=== PATIENT | female | born 1950 | race Caucasian/White ===

== ENCOUNTER 2018-10-08 14:05 | Emergency (ER) | payer OTHER ==
--- OUTSIDE RECORDS SUMMARY | 2018-10-08 14:22 | XMS REPORT | Continuity of Care Document ---
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 F/U Active 01/01/20 [facility] 18 3 MONTH FOLOW UP Active 10/02/19 [facility] 18 Obstructive sleep 08/10/19 11/12/2017 [facility] apnea (pediatric) 18 XEOMIN INJ Active 06/18/19 [facility] 18 6 MO FU Active 05/01/20 [facility] 17 3 MO FU Active 05/01/20 [facility] 17 3 MONTH FOLLOW UP Active 11/22/19 [facility] 17 3 MONTH F.U Active 11/03/19 [facility] 17 4 WEEK F.U Active 09/28/19 [facility] 17 REF BY DT T; Active 08/09/19 [facility] PSYCHOLOGICAL 17 INSOMNIA 6 MONTH F/U Active 08/09/19 [facility] 17 XEOMIN 300 Active 05/01/20 [facility] 16 SHUKRI Active 01/31/20 [facility] 16 SUSPECTED SHUKRI Active 01/03/20 [facility] 16 250 UNITS Active 12/27/19 [facility] 16 300 UNITS Active 08/30/[address] [facility] [address] SCAN Active 02/16/20 [facility] 15 500 UNITS Active 11/17/19 [facility] 15 600 UNITS Active 05/19/19 [facility] 15 SHUKRI F/U Active 05/18/19 [facility] 14 SLEEP APNEA F/U Active 04/03/20 [facility] 13 500 UNIT Active 02/18/20 [facility] 13 FU Active 07/03/19 [facility] 12 3-4 MONTH FUP Active 02/14/20 [facility] 11 500 UNITS IN 4 WKS Active 02/14/20 [facility] 11 500/40 Active 11/22/19 [facility] 11 Clostridium Active 06/03/19 Problem 05/22/2012 1Problem difficile<sup>1</sup 10 added by [facility], > Discern [facility] Expert. Clostridium Resolved 06/03/19 Problem 08/30/2018 Problem [facility] difficile<sup>1, 10 added by 2</sup> Discern Expert. Clostridium Resolved 06/03/19 Problem 02/20/2013 2Problem [facility] difficile<sup>1, 10 added by </sup><sup>2</sup> Discern Expert. 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 09 SPASM OF MUSCLE Active 05/13/19 [facility] 01 [id number] Active 05/13/19 [facility] 01 [id number] Active 05/13/19 [facility] 01 APPT Active 05/13/19 [facility] 01 SLEEPINESS Active 05/13/19 [facility] 01 Dysthymic disorder 07/20/2018 [facility] Other muscle spasm 07/20/2018 [facility] Fracture Resolved Problem 02/20/2013 [facility] Hay fever Resolved Problem 02/20/2013 [facility] Numbness Resolved Problem 02/20/2013 [facility] Sinusitis Resolved Problem 02/20/2013 [facility] Fracture Resolved Problem 02/25/2016 [facility] Hay fever Resolved Problem 08/30/2018 [facility] Numbness Active Problem 08/30/2018 [facility] Sinusitis Resolved Problem 08/30/2018 [facility] SHUKRI - Obstructive Resolved Problem 08/30/2018 [facility] sleep apnea Spasm of muscle Active Problem 08/30/2018 [facility] Left spastic Active Problem 08/30/2018 [facility] hemiparesis Depression Active Problem 08/30/2018 [facility] 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 [facility] spasm Meningitis, 09/24/2017 [facility] unspecified Insomnia, 10/08/2017 [facility] unspecified Final: Dysthymic 02/03/2017 [facility] disorder 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 Psychophysiologic 07/20/2018 [facility] insomnia Unspecified 07/20/2018 [facility] intracranial injury without loss of consciousness, sequela 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 FOLLOW-UP EXAM NOS Active [facility] SPASM OF MUSCLE Active [facility] ABN INVOLUN MOVEMENT Active [facility] NEC BRAIN INJURY NEC Active [facility] OBSTRUCTIVE SLEEP Active [facility] APNEA LATE EF-HEMPLGA SIDE Active [facility] NOS CHRONIC PAIN NEC Active [facility] OTHER MUSCLE SPASM Active [facility] OTHER ABNORMAL Active [facility] INVOLUNTARY MOVEMENTS SLEEP APNEA NOS Active [facility] INTCRAN INJ W/O LOSS Active [facility] OF CONSCIOUSNESS, I ENCNTR FOR F/U EXAM Active [facility] AFT TRTMT FOR COND O OTHER CHRONIC PAIN Active [facility] OBSTRUCTIVE SLEEP Active [facility] APNEA (ADULT) (PEDIATR CRAMP AND SPASM Active [facility] ANXIETY DISORDER, Active [facility] UNSPECIFIED ANXIETY DISORDER DUE Active [facility] TO KNOWN PHYSIOLOGI MAJOR DEPRESSIVE Active [facility] DISORDER, SINGLE EPISOD BIPOLAR DISORDER, Active [facility] UNSPECIFIED Medications Medication Details Route Status Patient Ordering Order Source Instructions Provider Date Botulinum Toxin 400 unit, Inactive 08/28/ [facility] Type A Route: IM, 2018 ONCALL, Dosing Weight 59.091, kg, Start date: 08/28/18 13:00:00 CDT Nifedipine 10 MG 10 mg=1 cap, Active 08/28/ [facility] Oral Capsule PO, 0 2019 Refill(s) DULoxetine 40 mg 40 mg=1 cap, Active 07/09/ [facility] oral delayed PO, Daily, # 2019 release capsule 30 cap, 6 Refill(s), Pharmacy: [facility]/pharmacy #[id number] Fluoxetine 20 MG 20 mg=1 cap, Active 07/09/ [facility] Oral Capsule PO, Daily, # 2019 [Prozac] 30 cap, 6 Refill(s), Pharmacy: [facility]/pharmacy #[id number] ARIPiprazole 5 mg 5 mg=1 tab, Active 07/09/ [facility] oral tablet PO, Daily, # 2019 30 tab, 6 Refill(s), Pharmacy: [facility]/pharmacy #[id number] Bp medication Bp Active 07/09/ [facility] medication, 2019 PO, Refill(s) 0 DULoxetine 40 mg 40 mg=1 cap, No Longer 12/31/ [facility] oral delayed PO, Daily, # Active 2018 release capsule 30 cap, 6 Refill(s), Pharmacy: [facility]/pharmacy #[id number] Botulinum Toxin 400 unit, Inactive 12/31/ [facility] Type A Route: IM, 2017 ONCALL, Dosing Weight 59.091, kg, Start date: 12/31/17 11:00:00 CDT Botulinum Toxin 400 unit, Inactive [facility] Type A Route: IM, 2017 ONCRAF, Dosing Weight 59.091, kg, Start date: 09/24/17 11:00:00 CDT Home Medication 1 cap, PO, Active [facility] Daily, CBD2017 Canniba hemp oil, Refill(s) 0 Fluoxetine 20 MG 20 mg=1 cap, Active [facility] Oral Capsule PO, Daily, # 2017 [Prozac] 90 cap, 2 Refill(s), Pharmacy: [facility]/pharmacy #[id number] duloxetine 30 MG 30 mg=1 cap, Active [facility] Enteric Coated PO, Daily, # 2017 Capsule 90 cap, 2 [Cymbalta] Refill(s), Pharmacy: [facility]/pharmacy #[id number] ARIPiprazole 5 mg 5 mg=1 tab, Active [facility] oral tablet PO, Daily, # 2017 30 tab, 6 Refill(s), Pharmacy: [facility]/pharmacy #[id number] Botulinum Toxin 400 unit, Inactive [facility] Type A Route: IM, 2017 ONCRAF, Dosing Weight 56.818, kg, Start date: 06/18/17 12:00:00 LIABILITY CLAIMS ADJUSTER INCObotulinumtoxi 400 unit, Inactive [facility] nA Route: IM, 2016 ONCRAF, Dosing Weight 56.818, kg, Start date: 03/19/17 13:00:00 LIABILITY CLAIMS ADJUSTER meloxicam 7.5 mg 7.5 mg=1 tab, Active [facility] oral tablet PO, Daily, # 2016 30 tab, 0 Refill(s) Docusate Sodium 100 mg=1 cap, Active [facility] 100 MG Oral PO, Daily, 0 2016 Capsule [Colace] Refill(s) Probiotic Formula 1 cap, PO, Active [facility] Daily, 0 2016 Refill(s) duloxetine 30 MG 30 mg=1 cap, Active [facility] Enteric Coated PO, Daily, # 2016 Capsule 90 cap, 2 [Cymbalta] Refill(s) Fluoxetine 20 MG 20 mg=1 cap, Active [facility] Oral Capsule PO, Daily, # 2017 [Prozac] 90 cap, 2 Refill(s) Botulinum Toxin 400 unit, Inactive [facility] Type A Route: IM, 2016 ONCALL, Dosing Weight 60, kg, Start date: 12/11/16 12:00:00 CDT Fluoxetine 20 MG 20 mg=1 cap, Active [facility] Oral Capsule PO, Daily, # 2017 [Prozac] 30 cap, 0 Refill(s) duloxetine 30 MG 30 mg=1 cap, Active [facility] Enteric Coated PO, Daily, # 2016 Capsule 30 cap, 3 [Cymbalta] Refill(s), Pharmacy: [facility]/pharmacy #[id number] duloxetine 60 MG 60 mg=1 cap, Inactive [facility] Enteric Coated PO, Daily, # 2016 Capsule 30 cap, 3 [Cymbalta] Refill(s), Pharmacy: [facility]/pharmacy #[id number] Fluoxetine 20 MG 60 mg=3 cap, Active [facility] Oral Capsule PO, Daily, # 2017 [Prozac] 180 cap, 2 Refill(s), Pharmacy: [facility]/pharmacy #[id number] Fluoxetine 40 MG 40 mg=1 cap, Active 09/27/ [facility] Oral Capsule PO, Daily, # 2016 [Prozac] 30 cap, 0 Refill(s), Pharmacy: [facility]/pharmacy #[id number] Botulinum Toxin 400 unit, Inactive [facility] Type A Route: IM, 2016 ONCALL, Dosing Weight 55.455, kg, Start date: 08/14/16 12:00:00 CDT Baclofen 0.5 microgram, Active [facility] MG/ML Injectable INTRATHECAL, 2017 Solution ONCALL, Dose=total daily dose, 0 Refill(s) Home Medication 1 tab, PO, Active [facility] TID, 2017 cramberry, Refill(s) 0 Botulinum Toxin 300 unit, Inactive [facility] Type A Route: IM, 2015 ONCALL, Dosing Weight 55.909, kg, Start date: 05/01/16 12:00:00 LIABILITY CLAIMS ADJUSTER tramadol 50 mg=1 tab, Active [facility] hydrochloride 50 PO, BID, 0 2016 MG Oral Tablet Refill(s) Botulinum Toxin 300 unit, Inactive [facility] Type A Route: IM, 2015 ONCRAF, Dosing Weight 55.455, kg, Start date: 12/27/15 12:00:00 CDT, Duration: 30 day, Stop date: 01/26/16 11:59:00 CDT gabapentin 600 MG 600 mg=1 tab, Active [facility] Oral Tablet PO, TID, 0 2015 Refill(s) zolpidem 5 mg 5 mg=1 tab, Active [facility] oral tablet PO, Bedtime, 2015 PRN Sleep, X 30 day, # 30 tab, 5 Refill(s) zolpidem 5 mg 5 mg=1 tab, No Longer [facility] oral tablet PO, Bedtime, Active 2015 PRN Sleep, X 30 day, # 30 tab, 1 Refill(s), called to pharmacy onabotulinumtoxin 400 unit, Inactive [facility] A Route: IM, 2015 ONCRAF, Dosing Weight 55.455, kg, Start date: 08/30/15 11:00:00 CDT, Duration: 30 day, Stop date: 09/29/15 10:59:00 CDT zolpidem 5 mg 5 mg=1 tab, Active [facility] oral tablet PO, Bedtime, 2015 PRN Sleep, X 30 day, # 30 tab, 2 Refill(s), called to pharmacy onabotulinumtoxin 400 unit, Inactive [facility] A Route: IM, 2015 ONCRAF, Dosing Weight 55.909, kg, Start date: 05/31/15 11:00:00, Duration: 30 day, Stop date: 06/30/15 10:59:00 zolpidem 5 mg 5 mg=1 tab, Active [facility] oral tablet PO, Bedtime, 2014 PRN Sleep, X 30 day, # 30 tab, 2 Refill(s) gabapentin 100 MG 200 mg=2 cap, Active [facility] Oral Capsule PO, Daily, 0 2014 Refill(s) aripiprazole 5 MG 5 mg=1 tab, Active [facility] Oral Tablet PO, Daily, # 2015 [Abilify] 30 tab, 2 Refill(s), called to pharmacy onabotulinumtoxin 500 unit, Inactive [facility] A Route: IM, 2014 ONCALL, Dosing Weight 56.818, kg, Start date: 02/15/15 11:00:00, Duration: 30 day, Stop date: 03/17/15 9:59:00 zolpidem 5 mg 5 mg=1 tab, Active [facility] oral tablet PO, Bedtime, 2015 PRN Sleep, X 30 day, # 30 tab, 2 Refill(s) gabapentin 100 MG 200 mg=2 cap, Active [facility] Oral Capsule PO, Daily, 0 2014 Refill(s) Hydrochlorothiazi PO, Daily, 0 Active [facility] de Refill(s) 2014 Diphenhydramine 50 mg=2 tab, Inactive [facility] Hydrochloride 25 PO, TID, prn, 2015 MG Oral Tablet 0 [Benadryl] Refill(s)Spec ial Instructions: prn onabotulinumtoxin 500 unit, Inactive [facility] A Route: IM, 2014 ONCALL, Dosing Weight 55.909, kg, Start date: 11/16/14 10:00:00, Duration: 30 day, Stop date: 12/16/14 9:59:00 onabotulinumtoxin 500 unit, Inactive [facility] A Route: IM, 2014 Drug form: INJ, KATJA, Dosing Weight 57.273, kg, Start date: 08/17/14 11:00:00, Duration: 30 day, Stop date: 09/16/14 10:59:00Notes : "TO BE RECONSTITUTED AND ADMINISTERED ONLY BY A PHYSICIAN" Reconstitute with preservative free NS only. Stability=4 hours after reconstitutio n. (Same As: Botox) onabotulinumtoxin 500 unit, Inactive [facility] A Route: IM, 2014 ONCALL, Dosing Weight 56.818, kg, Start date: 05/19/14 16:00:00, Duration: 30 day, Stop date: 06/18/14 15:59:00 28 ACTUAT 20 microgram, Active [facility] Teriparatide 0.02 SUB-Q, Daily, 2014 MG/ACTUAT # 1 ea, 0 Prefilled Syringe Refill(s) [Forteo] aripiprazole 5 MG 5 mg=1 tab, Active 09/01/ [facility] Oral Tablet PO, Daily, # 2014 [Abilify] 30 tab, 0 Refill(s) Nuedexta oral 1 cap, PO, Active [facility]- 06/09/ [facility] capsule BID, # 60 Vigil 2014 cap, 2 Refill(s) Flonase 0.05 1 spray, Active [facility] mg/inh nasal NASAL, 2014 spray Bedtime, # 16 gm, 0 Refill(s) Bulan 5/325 oral 1 tab, PO, Active 06/02/ [facility] tablet Daily, 0 2013 Refill(s) Colace 100 mg 100 mg, 1 PO Active [facility] oral capsule cap, PO, 2012 Daily, PRN, 20 cap, Constipation, Substitution Allowed, CAP Bulan 5/325 oral 1 tab, PO, PO Active [facility] tablet Q4-6H, PRN, 2012 30 tab, Substitution Allowed, Maintenance Zocor 80 mg oral 80 mg, 1 tab, PO Active 08/05/ [facility] tablet PO, Daily, 90 2012 tab, Substitution Allowed, Maintenance Senna 8.6 mg oral 17.2 mg, 2 PO Active 08/05/ [facility] tablet tab, PO, 2012 Bedtime, PRN, 100 tab, for constipation, Substitution Allowed, Maintenance, TAB Actonel Substitution Active 08/05/ [facility] Allowed 2012 MiraLax oral 17 gm, PO, PO Active 08/05[facility] powder for Daily, 255 2012 reconstitution gm, Substitution Allowed, PDR/REC gabapentin 100 mg 100 mg, PO, PO Active 08/05/ [facility] oral capsule TID, 2012 Substitution Allowed gabapentin 400 mg 400 mg, PO, PO Active 08/05/ [facility] oral capsule TID, 2012 Substitution Allowed Coleen 60 mg 60 mg, 1 tab, PO Active 08/05/ [facility] oral tablet PO, BID, PRN, 2012 20 tab, Allergic reaction, Substitution Allowed, TAB Cymbalta 60 mg, PO, PO Active 08/05/ [facility] BID, 2012 Substitution Allowed Cymbalta 60mh, Active 08/05/ [facility] Substitution 2012 Allowed Vitamin D3 1000 1,000 PO Active [facility] intl units oral IntlUnit, 1 2012 capsule cap, PO, Daily, 100 cap, Substitution Allowed, CAP Os-Stas 500 + D BID, Active [facility] Substitution 2012 Allowed, Maintenance Abilify 5 mg oral 5 mg, 1 tab, PO Active [facility]- [facility] tablet PO, Bedtime, Musa 2012 30 tab, 3, 3, Substitution Allowed, TAB Abilify 5 mg, PO, PO Active 08/05[facility] Bedtime, 2012 Substitution Allowed ziconotide given with Active [facility] baclofen 2012 pump, Substitution Allowedgiven with baclofen pump Atelvia 1 tab, PO, PO Active 08/05[facility] qWeek, 2012 Substitution Allowed Bulan 5/325 oral 1 tab, PO, PO Active [place] 06/30[facility] tablet BID, 60 tab, 2012 2, 2, Substitution Allowed, Maintenance, TAB benzocaine-docusa 1 appl, SD, SD Active [place] 06/30[facility] te 20 mg-283 mg Daily, PRN, 2012 rectal enema 30 doses or times, as needed for constipation, Substitution Allowed, Maintenance, PATRICIA Colace 100 mg 100 mg, 1 PO Active [place] 06/30[facility] oral capsule cap, PO, BID, 2012 60 cap, 2, 2, Substitution Allowed, CAP duloxetine 30 mg 60 mg, 2 cap, PO Active [place] 06/30[facility] oral delayed PO, BID, 120 2012 release capsule cap, 2, 2, Substitution Allowed, DRC gabapentin 100 mg 5 caps, PO, PO Active [place] 06/30[facility] oral capsule TID, 150 2012 caplet, 2, 2, Substitution Allowed, CAP polyethylene 17 gm, PO, PO Active [place] 06/30[facility] glycol 3350 oral Daily, 30 2012 powder for doses or reconstitution times, 2, 2, Substitution Allowed, PDR/REC simvastatin 40 mg 80 mg, 2 tab, PO Active [place] 06/30[facility] oral tablet PO, Bedtime, 2012 60 tab, 2, 2, Substitution Allowed, Maintenance, TAB risedronate 5 mg 5 mg, 1 tab, PO Active [place] 06/30[facility] oral tablet PO, Q7D, 4 2012 tab, Substitution Allowed, TAB risedronate 30 mg 30 mg, 1 tab, PO Active [place] 06/30[facility] oral tablet PO, Q7D, 4 2012 tab, Substitution Allowed, TAB senna 8.6 mg oral 17.2 mg, 2 PO Active [place] 06/30[facility] tablet tab, PO, 2012 QNoon, 60 tab, 2, 2, Substitution Allowed, Maintenance, TAB psyllium 3.4 1 pkt, PO, PO Active [place] 06/30[facility] g/5.8 g oral Daily, 2012 powder doses or times, Substitution Allowed, Maintenance, PDR/REC Coleen-D 24 Hour 1 tab, Route: PO No Longer [facility] 06/[facility] PO, Dosing Active 2012 Weight 65.54, kg, Daily, Start date: 06/30/12 8:30:00, Duration: 30 day, Stop date: 07/29/12 8:30:00 Multiple Vitamins 1 tab, PO, PO Active [place] 06/[facility] with Minerals Daily, 2012 oral tablet tab, 2, 2, Substitution Allowed, Maintenance, TAB levofloxacin 500 500 mg, 1 PO Active [place] 06/30[facility] mg oral tablet tab, PO, 2012 [id number], 7 tab, Substitution Allowed, TAB fexofenadine 60 60 mg, 1 tab, PO Active [place] 06/30[facility] mg oral tablet PO, Q12H, 60 2012 tab, 2, 2, Substitution Allowed, TAB cholecalciferol 1,000 PO Active [place] 06/30[facility] 1000 intl units IntlUnit, 1 2012 oral capsule cap, PO, Daily, 30 cap, 2, 2, Substitution Allowed, CAP Os-Stas 500 with D 1 cap, PO, PO Active [place] 06/30[facility] oral tablet BID, 60 cap, 2012 2, 2, Substitution Allowed, Maintenance, [place] aripiprazole 5 mg 5 mg, 1 tab, PO Active [place] 06/30[facility] oral tablet PO, Bedtime, 2012 30 tab, 2, 2, Substitution Allowed, TAB Coleen 60 mg, 1 tab, PO No Longer [facility] Route: PO, Active 2012 Drug form: TAB, Q12H, Start date: 06/29/12 21:00:00, Duration: 30 day, Stop date: 07/29/12 9:00:00 Levaquin 500 mg, 1 PO No Longer [facility] tab, Route: Active 2012 PO, Drug form: TAB, [id number], Dosing Weight 65.54, kg, Start date: 06/26/12 18:00:00, Duration: 7 day, Stop date: 07/02/12 18:00:00 Bactrim DS oral 1 tab, Route: PO No Longer [facility] tablet PO, Drug Active 2012 Form: TAB, Dosing Weight 65.54, kg, BID--18, Start date: 06/22/12 18:00:00, Duration: 30 day, Stop date: 07/22/12 6:00:00 Abilify 5 mg, 1 tab, PO No Longer [facility] Route: PO, Active 2012 Drug form: TAB, Bedtime, Dosing Weight 65.54, kg, Start date: 06/19/12 21:00:00, Duration: 60 day, Stop date: 08/17/12 21:00:00 Actonel 5 mg, 1 tab, PO No Longer [facility] Route: PO, Active 2012 Drug form: TAB, Q7D, Start date: 06/08/12 13:00:00, Duration: 30 day, Stop date: 07/06/12 6:30:00 Abilify 5 mg, 1 tab, PO No Longer [facility] Route: PO, Active 2012 Drug form: TAB, Daily, Dosing Weight 65.54, kg, Start date: 06/05/12 8:30:00, Duration: 60 day, Stop date: 08/03/12 8:30:00 ZICONOTIDE ZICONOTIDE INJ No Longer [facility] 100MCG/ML 100MCG/ML, Active 2012 2.8, Drug form: MISC, Route: INJ, Continuous, 06/03/12 16:30:00, Duration: 30 day, Stop date: 07/03/12 16:29:00 Actonel 5 mg, 1 tab, PO No Longer [facility] Route: PO, Active 2012 Drug form: TAB, Q7D, Start date: 06/03/12 6:30:00, Duration: 30 day, Stop date: 07/29/12 6:30:00 Actonel 30 mg, 1 tab, PO No Longer [facility] Route: PO, Active 2012 Drug form: TAB, Q7D, Start date: 06/02/12 13:00:00, Duration: 30 day, Stop date: 06/30/12 6:30:00 TNF Risedronate 5 TNF PO No Longer [place] [facility] mg Risedronate Active 2012 5 mg, 5 mg, Drug form: MISC, Route: PO, Q7D, 06/02/12 6:30:00, Duration: 30 day, Stop date: 06/30/12 6:30:00 TNF - Risedronate TNF - PO No Longer [place] [facility] 30 mg Risedronate Active 2012 30 mg, 30 mg, Drug form: MISC, Route: PO, Q7D, 06/02/12 6:30:00, Duration: 30 day, Stop date: 06/30/12 6:30:00 nitrofurantoin 100 mg, 1 PO No Longer [facility] cap, Route: Active 2012 PO, Drug form: CAP, [id number], Dosing Weight 65.54, kg, Priority: NOW, Start date: 05/31/12 8:40:00, Duration: 7 day, Stop date: 06/07/12 2:40:00 MiraLax 17 gm, Route: PO No Longer [facility] PO, Daily, Active 2012 Dosing Weight 65.54, kg, Start date: 05/31/12 8:30:00, Duration: 30 day, Stop date: 06/29/12 8:30:00 ergocalciferol 1,000 PO No Longer [facility] IntlUnit, Active 2012 Route: PO, Daily, Dosing Weight 65.54, kg, Start date: 05/31/12 8:30:00, Duration: 30 day, Stop date: 06/29/12 8:30:00 Cymbalta 60 mg, Route: PO No Longer [facility] PO, Drug Active 2012 form: CAP, Daily, Dosing Weight 64.545, kg, Start date: 05/31/12 8:30:00, Duration: 30 day, Stop date: 06/29/12 8:30:00 Vitamin D3 1,000 unit, 1 PO No Longer [facility] tab, Route: Active 2012 PO, Drug form: TAB, Daily, Start date: 05/31/12 8:30:00, Duration: 60 day, Stop date: 07/29/12 8:30:00 Metamucil 1 pkt, Route: PO No Longer [place] [facility] PO, Drug Active 2012 Form: PDR/REC, Dosing Weight 64.545, kg, Daily, Start date: 05/31/12 8:30:00, Duration: 60 day, Stop date: 09/27/12 8:30:00 multivitamin with 1 tab, Route: PO No Longer [facility] minerals PO, Drug Active 2012 Form: TAB, Dosing Weight 64.545, kg, Daily, Start date: 05/31/12 8:30:00, Duration: 60 day, Stop date: 09/27/12 8:30:00 hydrochlorothiazi 12.5 mg, 0.5 PO No Longer [place] [facility] de tab, Route: Active 2012 PO, Drug form: TAB, Daily, Dosing Weight 64.545, kg, Start date: 05/31/12 8:30:00, Duration: 60 day, Stop date: 07/29/12 8:30:00 Fosamax 10 mg, 1 tab, PO No Longer [facility] Route: PO, Active 2012 Drug form: TAB, [id number], Start date: 05/31/12 6:30:00, Duration: 60 day, Stop date: 07/29/12 6:30:00 Zocor 160 mg, PO No Longer [facility] Route: PO, Active 2012 Drug form: TAB, Bedtime, Dosing Weight 64.545, kg, Start date: 05/30/12 21:00:00, Duration: 30 day, Stop date: 06/28/12 21:00:00 Colace 100 mg 100 mg, 1 PO No Longer [facility] oral capsule cap, Route: Active 2012 PO, Drug form: CAP, BID, Dosing Weight 64.545, kg, Start date: 05/30/12 21:00:00, Duration: 60 day, Stop date: 09/27/12 8:30:00 Os-Stas 500 + D 1 tab, Route: PO No Longer [place] [facility] PO, Drug Active 2012 Form: [place], Dosing Weight 64.545, kg, BID, Start date: 05/30/12 21:00:00, Duration: 60 day, Stop date: 09/27/12 8:30:00 Cymbalta 60 mg, 2 cap, PO No Longer [place] [facility] Route: PO, Active 2012 Drug form: DRC, BID, Dosing Weight 64.545, kg, Start date: 05/30/12 21:00:00, Duration: 60 day, Stop date: 09/27/12 8:30:00 bisacodyl 10 mg, 1 SD No Longer [facility] supp, Route: Active 2012 SD, Drug form: SUPP, Daily, Dosing Weight 65.54, kg, PRN Constipation, Start date: 05/30/12 18:04:00, Duration: 60 day, Stop date: 07/29/12 8:30:00 Bulan 5/325 oral 1 tab, Route: PO No Longer [place] [facility] tablet PO, Drug Active 2012 Form: TAB, Dosing Weight 64.545, kg, BID, Start date: 05/30/12 17:00:00, Duration: 60 day, Stop date: 09/27/12 8:00:00 baclofen Route: INTRATHECAL No Longer [facility] INTRATHECAL, Active 2012 Drug form: INJ, Continuous, PRN Other -See Comment, Start date: 05/30/12 15:14:00, Duration: 30 day, Stop date: 07/29/12 16:13:00 naproxen 250 mg, 1 PO No Longer [place] [facility] tab, Route: Active 2012 PO, Drug form: TAB, BID, Dosing Weight 65.54, kg, PRN Pain, Start date: 05/30/12 14:45:00, Duration: 60 day, Stop date: 09/27/12 8:30:00 gabapentin 100 mg 100 mg, 1 PO No Longer [facility] oral capsule cap, Route: Active 2012 PO, Drug form: CAP, TID, Dosing Weight 64.545, kg, Start date: 05/30/12 13:00:00, Duration: 60 day, Stop date: 09/27/12 8:30:00 gabapentin 400 mg 400 mg, 1 PO No Longer [facility] oral capsule cap, Route: Active 2012 PO, Drug form: CAP, TID, Dosing Weight 64.545, kg, Start date: 05/30/12 13:00:00, Duration: 60 day, Stop date: 09/27/12 8:30:00 Aleve 220 mg, PO No Longer [facility] Route: PO, Active 2012 Drug form: TAB, Q8H, Dosing Weight 64.545, kg, PRN Pain, Start date: 05/30/12 12:40:00, Duration: 30 day, Stop date: 06/29/12 12:39:00 risedronate 35 mg 35 mg, Route: PO No Longer [facility] oral tablet PO, Drug Active 2012 form: TAB, Q7D, Dosing Weight 64.545, kg, Start date: 05/30/12 12:00:00, Duration: 30 day, Stop date: 06/27/12 9:00:00 senna 8.6 mg oral 17.2 mg, 2 PO No Longer [facility] tablet tab, Route: Active 2012 PO, Drug Form: TAB, Dosing Weight 64.545, kg, QNoon, Start date: 05/30/12 12:00:00, Duration: 60 day, Stop date: 09/26/12 12:00:00 Bulan 5/325 oral 1 tab, Route: PO No Longer [facility] tablet PO, Drug Active 2012 Form: TAB, Dosing Weight 64.545, kg, Q4H, PRN Pain, Start date: 05/30/12 11:49:00, Duration: 30 day, Stop date: 06/29/12 11:48:00 phenobarbital 1,290.9 mg, IVP No Longer [facility] 19.86 mL, Active 2012 Route: IVP, Drug form: INJ, PRN, Dosing Weight 64.545, kg, PRN Seizure, Start date: 05/30/12 11:49:00, Duration: 60 day, Stop date: 09/27/12 12:48:00 phenytoin 968.175 mg, IVP No Longer [place] [facility] 19.36 mL, Active 2012 Route: IVP, Drug form: INJ, PRN, Dosing Weight 64.545, kg, PRN Seizure, Start date: 05/30/12 11:49:00, Duration: 60 day, Stop date: 09/27/12 12:48:00 LORAzepam 2 mg, 1 mL, IVP No Longer [facility] Route: IVP, Active 2012 Drug form: INJ, PRN, Dosing Weight 64.545, kg, PRN Seizure, Start date: 05/30/12 11:49:00, Duration: 60 day, Stop date: 09/27/12 12:48:00 Enemeez Plus 1 appl, SD No Longer [place] [facility] Route: SD, Active 2012 Drug Form: PATRICIA, Dosing Weight 64.545, kg, Daily, PRN as needed for constipation, Start date: 05/30/12 11:49:00, Duration: 60 day, Stop date: 09/27/12 8:30:00 Atelvia 35 mg PO, PO Active [facility] oral enteric Substitution 2011 coated tablet Allowed ziconotide 100 Substitution Active [facility] mcg/mL Allowed, q 2010 intrathecal monthq month solution pneumococcal 0.5 ml, Inactive SYSTEM 23-valent vaccine Route: IM, 2008 TIRGhada, Drug Form: [facility] INJ, ONCE, Start date: 02/08/09 9:00:00, Stop date: 02/08/09 9:00:00(Same as: Pneumovax 23) Refrigerate influenza virus 0.5 ml, Inactive SYSTEM vaccine, Route: IM, 2008 TIR, inactivated Drug Form: [facility] INJ, ONCE, Start date: 02/08/09 9:00:00, Stop date: 02/08/09 9:00:00(Same as: Fluzone) Allergies, Adverse Reactions, Alerts Substance Category Reaction Severity Reaction Status Date Comments Source type Reported Immunizations Immunization Date Given Site Status Last Updated Comments Source pneumococcal 02/08/2009 Not Given [facility] 23-valent vaccine [facility] influenza virus 02/08/2009 Not Given [facility] vaccine, [facility] inactivated pneumococcal 02/08/2009 Not Given [facility] 23-valent vaccine influenza virus 02/08/2009 Not Given Estela [facility] vaccine, inactivated pneumococcal 02/07/2009 completed [facility] 23-valent vaccine [facility] pneumococcal 02/07/2009 Left Arm completed [facility] 23-valent vaccine pneumococcal 02/07/2009 Left Arm completed [facility] 23-valent vaccine Results Order Name Results Value Reference Date Interpretation Comments Source Range CHEM PANEL Glucose Lvl 100 mg/dL 70 - 99 08/29 CHEM PANEL BUN 20 mg/dL 7 - 22 08/29 [facility] CHEM PANEL Creatinine 0.95 mg/dL 0.50 - 08/29 [facility] Lvl 1.40 CHEM PANEL CO2 33 meq/L 24 - 32 08/29 [facility] CHEM PANEL Calcium Lvl 9.2 mg/dL 8.5 - 10.5 08/29 [facility] CHEM PANEL AGAP 10.3 meq/L 10.0 - 08/29 [facility] .0 CHEM PANEL Chloride Lvl 88 meq/L 95 - 109 08/29 [facility] CHEM PANEL Sodium Lvl 128 meq/L 135 - 145 08/29 [facility] CHEM PANEL Potassium Lvl 3.3 meq/L 3.5 - 5.1 08/29 [facility] CHEM PANEL eGFR 64 08/29 Result Comment: The eGFR is calculated using the CKD-EPI formula. In most young, healthy individuals the eGFR will be >90 mL/ min/1.73m2. The eGFR declines with age. An eGFR of 60-89 may be normal in [facility] mL/min/1.73 some populations, particularly the elderly, for whom the CKD-EPI formula has not been extensively validated. Use of the eGFR is not recommended in the following populations: m2 Individuals with unstable creatinine concentrations, including patients and those with serious co-morbid conditions. Patients with extremes in muscle mass or diet. The data above are obtained from the National Kidney Disease Education Program (NKDEP) which additionally recommends that when the eGFR is used in patients with extremes of body mass index for purposes of drug dosing, the eGFR should be multiplied by the estimated BMI. URINE AND UA Glucose Negative Negative 08/29 [facility] STOOL (08/30/15 11:00 AM) URINE AND UA Spec Grav 1.010 <=1.030 08/29 [facility] STOOL URINE AND UA pH 6.0 5.0 - 8.0 08/29 [facility] STOOL URINE AND UA Protein 30 mg/dL Negative 08/29 [facility] STOOL mg/dL URINE AND UA Leuk Est Moderate Negative 08/29 [facility] STOOL *ABN* (08/30/15 11:00 AM) URINE AND UA Blood Moderate Negative 08/29 [facility] STOOL *ABN* (08/30/15 11:00 AM) URINE AND UA Ketones Negative Negative 08/29 [facility] STOOL *NA* (08/30/15 11:00 AM) URINE AND UA Bili Negative Negative 08/29 [facility] STOOL *NA* (08/30/15 11:00 AM) URINE AND UA Nitrite Negative Negative 08/29 [facility] STOOL (08/30/15 11:00 AM) URINE AND UA 0.2 EU/dL 0.1 - 1.0 08/29 [facility] STOOL Urobilinogen URINE AND UA Turbidity Slight Cloudy Clear 08/29 [facility] STOOL (08/30/15 11:00 AM) URINE AND UA Color Yellow Yellow 08/29 [facility] STOOL *NA* (08/30/15 11:00 AM) URINE AND UA Bacteria Many /HPF None Seen 08/29 [facility] STOOL /HPF URINE AND UA RBC 3-5 /HPF 0 - 2 08/29 [facility] STOOL URINE AND UA Sq Epi Moderate Few /LPF 08/29 [facility] STOOL /LPF /2015 URINE AND UA WBC 11-20 /HPF None Seen 08/29 [facility] STOOL /HPF Brain wo Brain wo EXAM: CT BRAIN WITHOUT CONTRAST 10/14 - [facility] contrast CT contrast CT /2014 - DATE: Feb 23, 2015 10:06:16 AM Read by: Jesse Ryan MD Dictated Date/time: 02/23/15 10:19 Electronically Signed by: Jesse Ryan MD 02/23/15 10:43 FINAL REPORT INDICATION: Stroke, hydrocephalus COMPARISON: March 31, 2013 TECHNIQUE: Contiguous axial images of the brain are obtained from the skull base to the vertex without administration of intravenous contrast material. Bone and soft tissue algorithms are provided. FINDINGS: There is no interval change in the patient's degree of ventriculomegaly. Persistent compensatory dilation of the right lateral ventricle is present as a consequence of the patient's extensive right MCA territory infarct. Visible portions of the ventriculoperitoneal shunt catheter are intact. Extensive encephalomalacia is again identified in the right cerebral hemisphere as well as the superior frontal and medial middle frontal gyri on the left from prior ischemia, unchanged. No new region of cortical abnormality is detected. Incidental imaging of the orbits, paranasal sinuses, skull, and skull base also demonstrates no interval change. IMPRESSION: 1. No recent infarct or hemorrhage. 2. Stable ventricular enlargement in this patient who has a ventriculoperitoneal shunt. Brain wo Brain wo EXAM: CT BRAIN WITHOUT CONTRAST 03/[address] [facility] [address] CT /2012 - DATE: Mar 31, 2013 12:56:00 PM Read by: Jesse Ryan Dictated Date/time: 03/31/13 14:07 Electronically Signed by: Jesse Ryan MD 03/31/13 14:15 FINAL REPORT INDICATION: Hydrocephalus COMPARISON: July 20, 2009 TECHNIQUE: Contiguous axial images of the brain are obtained from the skull base to the vertex without administration of intravenous contrast material. Bone and soft tissue algorithms are provided. FINDINGS: Patient has undergone interval cranioplasty with placement of a synthetic graft in the right frontoparietal region. A left transfrontal ventriculoperitoneal shunt catheter remains in place. Th e visualized portions of the catheter are intact. A mastoidectomy has been performed on the left with placement of a cochlear implant in the interval between the 2 exams. Extensive encephalomalacia of the right frontal and temporal lobes is again noted. Compensatory dilation of the ipsilateral portions of the ventricle is present. Size of the left lateral ventricle has, however, diminished. The third ventricle remains dilated. Focal hypodensity is identified in the medial aspect of the left cerebellar hemisphere adjacent to the vermis just above the fourth ventricle measuring 12 mm AP x 6 mm in transverse diameter. This could represent a volume artifact. However, age-indeterminate ischemia is also possible as the patient is not particularly asymmetric in the CT scanner. The appearance of the remainder of the brain parenchyma is unchanged. Incidental imaging of the orbits, paranasal sinuses, skull, and skull base also demonstrates no other interval change. IMPRESSION: 1. Hypodensity in the medial aspect of the left cerebellar hemisphere adjacent to the vermis. This could represent a volume artifact of the adjacent fourth ventricle or age-indeterminate ischemia. 2. Persistent dilation of the third ventricle may represent trapping of CSF in the structure as the left lateral ventricle is considerably smaller than on the patient's previous exam indicating donna t the ventriculoperitoneal shunt catheter is functional. 3. Interval cranioplasty on the right. 4. No new supratentorial parenchymal abnormality. 5. Interval placement of a cochlear implant on the left. CHEMISTRY eGFR 125 06/30 NA 1Result Comment: The eGFR is calculated using the CKD-EPI formula. In most young, healthy individuals the eGFR will be > 90 mL/min/1.73m2. The eGFR declines with age. An eGFR of 60-89 may be normal in [facility] mL/min/1.73 /2012 some populations, particularly the elderly, for whom the CKD-EPI formula has not been extensively validated. Use of the eGFR is not recommended in the following populations: m2 Individuals with unstable creatinine concentrations, including patients and those with serious co-morbid conditions. Patients with extremes in muscle mass or diet. The data above are obtained from the National Kidney Disease Education Program (NKDEP) which additionally recommends that when the eGFR is used in patients with extremes of body mass index for purposes of drug dosing, the eGFR should be multiplied by the estimated BMI. CHEMISTRY Sodium Lvl 146 meq/L 135 - 145 06/30 HI [facility] CHEMISTRY Potassium Lvl 4.1 meq/L 3.5 - 5.1 06/30 Normal [facility] /2012 CHEMISTRY Calcium Lvl 8.7 mg/dL 8.5 - 10.5 06/30 Normal [facility] /2012 CHEMISTRY Chloride Lvl 106 meq/L 95 - 109 06/30 Normal [facility] /2012 CHEMISTRY CO2 28 meq/L 24 - 32 06/30 Normal [facility] CHEMISTRY Glucose Lvl 87 mg/dL 70 - 99 06/30 Normal 4Interpretive Data: Adult reference range values reflect the clinical guidelines [facility] of the [place] [employer]. CHEMISTRY Creatinine 0.3 mg/dL 0.5 - 1.4 06/30 LOW [facility] Lvl /2012 CHEMISTRY BUN 17 mg/dL 7 - 22 06/30 Normal [facility] /2012 CHEMISTRY AGAP 16.1 meq/L 10.0 - 06/30 Normal [facility] 20.0 /2012 HEMATOLOGY MPV 8.5 fL 7.4 - 10.4 06/30 Normal [facility] /2012 HEMATOLOGY Platelet 201 K/CMM 133 - 450 06/30 Normal [facility] HEMATOLOGY RDW 12.8 % 11.5 - 06/30 Normal [facility] 14.5 /2012 HEMATOLOGY MCHC 33.1 g/dL 32.0 - 06/30 Normal [facility] 36.0 /2012 HEMATOLOGY WBC 4.7 K/CMM 3.7 - 10.4 06/30 Normal [facility] HEMATOLOGY Hct 36.5 % 36.0 - 06/30 Normal [facility] 48.0 /2012 HEMATOLOGY MCH 30.8 pg 27.0 - 06/30 Normal [facility] 31.0 /2012 HEMATOLOGY MCV 93.0 fL 81.0 - 06/30 Normal [facility] 99.0 /2012 HEMATOLOGY Hgb 12.1 g/dL 12.0 - 06/30 Normal [facility] 16.0 /2012 HEMATOLOGY RBC 3.92 M/CMM 4.20 - 02 LOW [facility] 5.40 /2012 HEMATOLOGY Monocytes # 0.4 K/CMM 0.0 - 0.8 06/30 Normal [facility] HEMATOLOGY Lymphocytes # 2.1 K/CMM 1.0 - 5.5 06/30 Normal [facility] HEMATOLOGY Basophils # 0.0 K/CMM 0.0 - 0.2 06/30 Normal [facility] HEMATOLOGY Eosinophils # 0.2 K/CMM 0.0 - 0.5 06/30 Normal [facility] HEMATOLOGY Segs-Bands # 2.0 K/CMM 1.5 - 8.1 06/30 Normal [facility] HEMATOLOGY Basophils 0.1 % 0.0 - 1.0 06/30 Normal [facility] /2012 HEMATOLOGY Eosinophils 4.9 % 0.0 - 4.0 06/30 HI [facility] /2012 HEMATOLOGY Monocytes 7.5 % 2.0 - 12.0 06/30 Normal [facility] HEMATOLOGY Lymphocytes 44.3 % 20.0 - 06/30 HI [facility] 40.0 /2012 HEMATOLOGY Segs 43.2 % 45.0 - 06/30 LOW [facility] 75.0 /2012 HEMATOLOGY Monocytes # 0.4 K/CMM 0.0 - 0.8 06/23 Normal [facility] HEMATOLOGY Lymphocytes # 1.5 K/CMM 1.0 - 5.5 06/23 Normal [facility] HEMATOLOGY Segs-Bands # 2.6 K/CMM 1.5 - 8.1 06/23 Normal [facility] HEMATOLOGY Basophils 0.1 % 0.0 - 1.0 06/23 Normal [facility] HEMATOLOGY Eosinophils # 0.2 K/CMM 0.0 - 0.5 06/23 Normal [facility] HEMATOLOGY Basophils # 0.0 K/CMM 0.0 - 0.2 06/23 Normal [facility] HEMATOLOGY Eosinophils 4.2 % 0.0 - 4.0 06/23 HI [facility] HEMATOLOGY Monocytes 8.8 % 2.0 - 12.0 06/23 Normal [facility] HEMATOLOGY Lymphocytes 31.1 % 20.0 - 06/23 Normal [facility] 40.0 HEMATOLOGY Segs 55.8 % 45.0 - 06/23 Normal [facility] 75.0 /2012 HEMATOLOGY MCH 30.9 pg 27.0 - 06/23 Normal [facility] 31.0 /2012 HEMATOLOGY RDW 12.4 % 11.5 - 06/23 Normal [facility] 14.5 /2012 HEMATOLOGY MCHC 33.3 g/dL 32.0 - 02 Normal [facility] 36.0 /2012 HEMATOLOGY MPV 8.6 fL 7.4 - 10.4 06/23 Normal [facility] HEMATOLOGY Platelet 207 K/CMM 133 - 450 06/23 Normal [facility] /2012 HEMATOLOGY MCV 92.9 fL 81.0 - 06/23 Normal [facility] 99.0 /2012 HEMATOLOGY Hct 41.2 % 36.0 - 06/23 Normal [facility] 48.0 /2012 HEMATOLOGY Hgb 13.7 g/dL 12.0 - 06/23 Normal [facility] 16.0 HEMATOLOGY WBC 4.7 K/CMM 3.7 - 10.4 06/23 Normal R HEMATOLOGY RBC 4.43 M/CMM 4.20 - 02 Normal [facility] 5.40 /2012 CHEMISTRY eGFR 99 06/23 NA 2Result Comment: The eGFR is calculated using the CKD-EPI formula. In most young, healthy individuals the eGFR will be > 90 mL/min/1.73m2. The eGFR declines with age. An eGFR of 60-89 may be normal in [facility] mL/min/1.73 /2012 some populations, particularly the elderly, for whom the CKD-EPI formula has not been extensively validated. Use of the eGFR is not recommended in the following populations: m2 Individuals with unstable creatinine concentrations, including patients and those with serious co-morbid conditions. Patients with extremes in muscle mass or diet. The data above are obtained from the National Kidney Disease Education Program (NKDEP) which additionally recommends that when the eGFR is used in patients with extremes of body mass index for purposes of drug dosing, the eGFR should be multiplied by the estimated BMI. CHEMISTRY Glucose Lvl 87 mg/dL 70 - 99 06/23 Normal 5Interpretive Data: Adult reference range values reflect the clinical guidelines of the [place] [employer]. CHEMISTRY Potassium Lvl 4.0 meq/L 3.5 - 5.1 06/23 Normal CHEMISTRY Sodium Lvl 146 meq/L 135 - 145 06/23 HI CHEMISTRY Creatinine 0.6 mg/dL 0.5 - 1.4 06/23 Normal [facility] Lvl CHEMISTRY Chloride Lvl 107 meq/L 95 - 109 06/23 Normal CHEMISTRY BUN 17 mg/dL 7 - 22 06/23 Normal CHEMISTRY Calcium Lvl 8.8 mg/dL 8.5 - 10.5 06/23 Normal CHEMISTRY CO2 30 meq/L 24 - 32 06/23 Normal CHEMISTRY AGAP 13.0 meq/L 10.0 - 06/23 Normal [facility] 20.0 URINALYSIS UA Leuk Est Trace Negative 06/19 ABN [facility] *ABN* (06/19/2012 00:01:00) URINALYSIS UA Nitrite Negative Negative 06/19 Normal [facility] (06/19/2012 00:01:00) URINALYSIS UA Protein Negative Negative 06/19 Normal [facility] (06/19/2012 00:01:00) URINALYSIS UA Glucose Negative Negative 06/19 Normal [facility] (06/19/2012 00:01:00) URINALYSIS UA Blood Negative Negative 06/19 Normal [facility] (06/19/2012 00:01:00) URINALYSIS UA 0.2 EU/dL 0.1 - 1.0 06/19 Normal [facility] Urobilinogen URINALYSIS UA Color Yellow Yellow 06/19 NA [facility] *NA* (06/19/2012 00:01:00) URINALYSIS UA pH 8.0 5.0 - 8.0 06/19 Normal [facility] URINALYSIS UA Turbidity Slight Cloudy Clear 06/19 Normal [facility] (06/19/2012 00:01:00) URINALYSIS UA Spec Grav 1.010 <=1.030 06/19 Normal [facility] URINALYSIS UA Ketones Negative Negative 06/19 NA [facility] *NA* (06/19/2012 00:01:00) URINALYSIS UA Bili Negative Negative 06/19 NA [facility] *NA* (06/19/2012 00:01:00) URINALYSIS UA Amorph Moderate /HPF None Seen 06/19 ABN [facility] Jordyn *ABN* (06/19/2012 00:01:00) URINALYSIS UA Bacteria Moderate /HPF None Seen 06/19 Normal [facility] (06/19/2012 00:01:00) URINALYSIS Micro? Performed 06/19 Normal [facility] (06/19/2012 00:01:00) URINALYSIS UA Sq Epi Rare /LPF Few 06/19 Normal [facility] (06/19/2012 00:01:00) URINALYSIS UA WBC 11-20 /HPF None Seen 06/19 ABN [facility] *ABN* (06/19/2012 00:01:00) Microbiolog Culture: 06/19 [facility] y Urine CHEMISTRY AGAP 15.0 meq/L 10.0 - 02/04 Normal [facility] 20.0 CHEMISTRY eGFR 106 06/16 NA 3Result Comment: The eGFR is calculated using the CKD-EPI formula. In most young, healthy individuals the eGFR will be > 90 mL/min/1.73m2. The eGFR declines with age. An eGFR of 60-89 may be normal in [facility] mL/min/1.73 /2012 some populations, particularly the elderly, for whom the CKD-EPI formula has not been extensively validated. Use of the eGFR is not recommended in the following populations: m2 Individuals with unstable creatinine concentrations, including patients and those with serious co-morbid conditions. Patients with extremes in muscle mass or diet. The data above are obtained from the National Kidney Disease Education Program (NKDEP) which additionally recommends that when the eGFR is used in patients with extremes of body mass index for purposes of drug dosing, the eGFR should be multiplied by the estimated BMI. CHEMISTRY Creatinine 0.5 mg/dL 0.5 - 1.4 06/16 Normal [facility] Lvl CHEMISTRY BUN 14 mg/dL 7 - 22 06/16 Normal [facility] CHEMISTRY Sodium Lvl 147 meq/L 135 - 145 06/16 HI R CHEMISTRY Glucose Lvl 78 mg/dL 70 - 99 06/16 Normal 6Interpretive Data: Adult reference range values reflect the clinical guidelines of the [place] [employer]. CHEMISTRY Potassium Lvl 4.0 meq/L 3.5 - 5.1 06/16 Normal [facility] CHEMISTRY CO2 30 meq/L 24 - 32 06/16 Normal [facility] CHEMISTRY Chloride Lvl 106 meq/L 95 - 109 06/16 Normal [facility] CHEMISTRY Calcium Lvl 8.9 mg/dL 8.5 - 10.5 06/16 Normal [facility] HEMATOLOGY Platelet 184 K/CMM 133 - 450 06/16 Normal [facility] HEMATOLOGY MPV 8.6 fL 7.4 - 10.4 06/16 Normal [facility] HEMATOLOGY MCV 93.2 fL 81.0 - 06/16 Normal [facility] 99.0 HEMATOLOGY MCHC 33.2 g/dL 32.0 - 06/16 Normal [facility] 36.0 HEMATOLOGY MCH 31.0 pg 27.0 - 06/16 Normal [facility] 31.0 /2012 HEMATOLOGY RDW 12.4 % 11.5 - 02/ Normal [facility] 14.5 /2012 HEMATOLOGY WBC 5.0 K/CMM 3.7 - 10.4 / Normal [facility] /2012 HEMATOLOGY Hgb 12.1 g/dL 12.0 - 02/ Normal [facility] 16.0 /2012 HEMATOLOGY RBC 3.90 M/CMM 4.20 - 02 LOW [facility] 5.40 /2012 HEMATOLOGY Hct 36.4 % 36.0 - 02 Normal [facility] 48.0 /2012 HEMATOLOGY Lymphocytes 39.6 % 20.0 - 02 Normal [facility] 40.0 /2012 HEMATOLOGY Monocytes 10.6 % 2.0 - 12.0 / Normal [facility] HEMATOLOGY Eosinophils 4.6 % 0.0 - 4.0 / HI [facility] HEMATOLOGY Segs 44.9 % 45.0 - 06/16 LOW [facility] 75.0 /2012 HEMATOLOGY Basophils # 0.0 K/CMM 0.0 - 0.2 06/16 Normal [facility] HEMATOLOGY Monocytes # 0.5 K/CMM 0.0 - 0.8 02 Normal [facility] HEMATOLOGY Eosinophils # 0.2 K/CMM 0.0 - 0.5 06/16 Normal [facility] HEMATOLOGY Segs-Bands # 2.3 K/CMM 1.5 - 8.1 06/16 Normal [facility] HEMATOLOGY Lymphocytes # 2.0 K/CMM 1.0 - 5.5 06/16 Normal [facility] HEMATOLOGY Basophils 0.3 % 0.0 - 1.0 06/16 Normal [facility] STOOL TESTS Occult Bld Negative Negative 06/13 Normal [facility] Stl (06/13/2012 15:00:00) Microbiolog Culture: 05/31 [facility] y Urine Microbiolog Culture: 05/31 [facility] y Urine URINALYSIS UA <=1.0 mg/dL 0.1 - 1.0 05/31 NA [facility] Urobilinogen
*NA*<b r/>( 013 05:13:00) <sup> </sup> URINALYSIS UA RBC 1 /HPF 0 - 2 05/31 Normal URINALYSIS UA WBC 112 /HPF 0 - 5 05/31 HI URINALYSIS UA Amorph Occasional /HPF None Seen 05/31 NA [facility] *NA* (05/31/2012 05:13:00) URINALYSIS UA Mucus Few /LPF None Seen 05/31 NA [facility] *NA* (05/31/2012 05:13:00) URINALYSIS UA Bacteria Many /HPF None Seen 05/31 ABN [facility] *ABN* (05/31/2012 05:13:00) URINALYSIS UA Blood Negative Negative 05/31 Normal [facility] (05/31/2012 05:13:00) URINALYSIS UA Nitrite Positive Negative 05/31 [facility] *ABN* (05/31/2012 05:13:00) URINALYSIS UA Bili Negative Negative 05/31 [facility] *NA* (05/31/2012 05:13:00) URINALYSIS UA Sq Epi Occasional /LPF Few 05/31 NA *NA* (05/31/2012 05:13:00) URINALYSIS UA Leuk Est Large Negative 05/31 ABN [facility] *ABN* (05/31/2012 05:13:00) URINALYSIS UA Ketones Negative mg/dL Negative 05/31 [facility] *NA* (05/31/2012 05:13:00) URINALYSIS UA Glucose Negative mg/dL Negative 05/31 NA *NA* (05/31/2012 05:13:00) URINALYSIS UA Protein Negative mg/dL Negative 05/31 Normal [facility] (05/31/2012 05:13:00) URINALYSIS UA pH 7.0 5.0 - 8.0 05/31 Normal URINALYSIS UA Spec Grav 1.007 <=1.030 05/31 Normal URINALYSIS UA Color Light Yellow Yellow 05/31 NA [facility] *NA* (05/31/2012 05:13:00) URINALYSIS UA Turbidity Slight Clear 05/31 ABN [facility] *ABN* (05/31/2012 05:13:00) CHEMISTRY UIBC 168 ug/dl 110 - 370 05/31 Normal CHEMISTRY % [place] Fe 30 % 12 - 57 05/31 Normal CHEMISTRY Iron 71 ug/dl 30 - 160 05/31 Normal CHEMISTRY TIBC 239 ug/dl 228 - 428 05/31 Normal CHEMISTRY Vitamin D 36 pg/mL 18 - 72 05/31 NA [facility] 1,25 (OH)2 Total CHEMISTRY Vitamin D3 36 pg/mL 05/31 NA [facility] 1,25 (OH)2 CHEMISTRY Vitamin D2 null 05/31 NA 7Result Comment: [facility] 1,25 (OH)2 Vitamin D2, 1,25 (OH)2: Reference ranges are established for total 1,25-dihydroxy vitamin D. Values for subcomponents D2 (derived from plant or fungal sources) and D3 (derived from human or animal sources) are provided for informational purposes only. This test(s) was developed and its performance characteristics have been determined by [facility], [place], [place]. Performance characteristics refer to the analytical performance of the test. Test Performed at: [facility], [address] [place] [id number] Jeyson Booth MD CHEMISTRY Magnesium Lvl 2.1 mg/dL 1.8 - 2.4 05/31 Normal CHEMISTRY T4 Free 0.65 ng/dL 0.76 - 05/31 LOW [facility] 1.46 CHEMISTRY Hgb A1C 4.9 % 05/31 NA 8Interpretive Data: HbA1C% eAG(mg /dL) Interpretation 6.0 126 Very good control 6.5 140 Very good control 7.0 154 Good Control 7.5 169 Good Control 8.0 183 Marginal Control, take action to lower 8.5 197 Marginal Control, take action to lower 9.0 212 Poor Control, take action to lower 9.5 226 Poor Control, take action to lower 10.0 240 Poor Control, take action to lower CHEMISTRY A/G Ratio 1.2 0.7 - 1.6 05/31 Normal CHEMISTRY B/C Ratio 30 6 - 25 05/31 HI CHEMISTRY Globulin 2.9 g/dL 2.0 - 4.0 05/31 Normal CHEMISTRY Total Protein 6.5 g/dL 6.4 - 8.4 05/31 Normal CHEMISTRY Bili Total 0.2 mg/dL 0.2 - 1.3 05/31 Normal CHEMISTRY AST 20 unit/L 0 - 37 05/31 Normal CHEMISTRY Alk Phos 60 unit/L 39 - 136 05/31 Normal CHEMISTRY Albumin Lvl 3.6 g/dL 3.5 - 5.0 05/31 Normal CHEMISTRY ALT 34 unit/L 0 - 65 05/31 Normal CHEMISTRY TSH 1.980 0.360 - 05/31 Normal [facility] uIU/mL 3.740 CHEMISTRY Phosphorus 4.7 mg/dL 2.5 - 4.5 05/31 HI CHEMISTRY LDL 62 mg/dL 0 - 129 05/31 Normal CHEMISTRY Trig 128 mg/dL 0 - 200 05/31 Normal CHEMISTRY Chol 135 mg/dL 120 - 200 05/31 Normal CHEMISTRY HDL 47 mg/dL >=35 05/31 Normal CHEMISTRY CHD Risk 2.87 3.90 - 05/31 LOW [facility] 5.80 /2012 IMMUNOLOGY Prealbumin 24.5 mg/dL 18.0 - 05/31 Normal [facility] 45.0 /2012 Vital Signs Vital Sign Value Date Comments Source Weight 59.091 08/28/2018 [facility] Heart Rate 68 08/28/2018 [facility] Respitory Rate 18 08/28/2018 [facility] Systolic (mm Hg) 137 08/28/2018 MH [facility] Diastolic (mm Hg) 81 08/28/2018 [facility] Weight 59.091 07/09/2018 MH [facility] Systolic (mm Hg) 183 07/09/2018 MH [facility] Diastolic (mm Hg) 99 07/09/2018 [facility] Heart Rate 55 07/09/2018 [facility] Height 149.86 cm 07/09/2018 [facility] BMI Calculated 26.31 07/09/2018 [facility] Respitory Rate 18 07/09/2018 [facility] BMI Calculated 26.31 12/31/2017 [facility] Weight 59.091 12/31/2017 [facility] Height 149.86 cm 12/31/2017 [facility] Respitory Rate 20 12/31/2017 [facility] Heart Rate 63 12/31/2017 MH [facility] Systolic (mm Hg) 139 12/31/2017 MH [facility] Diastolic (mm Hg) 82 12/31/2017 [facility] Height 149.86 cm 12/31/2017 [facility] Weight 59.091 12/31/2017 [facility] BMI Calculated 26.31 12/31/2017 [facility] Respitory Rate 20 12/31/2017 [facility] Heart Rate 62 12/31/2017 [facility] Systolic (mm Hg) 137 12/31/2017 MH [facility] Diastolic (mm Hg) 88 12/31/2017 [facility] Height 149.86 cm 10/01/2017 [facility] BMI Calculated 26.51 10/01/2017 [facility] Weight 59.545 10/01/2017 [facility] Systolic (mm Hg) 134 10/01/2017 [facility] Diastolic (mm Hg) 79 10/01/2017 [facility] Heart Rate 65 10/01/2017 [facility] Respitory Rate 16 10/01/2017 [facility] Respitory Rate 20 09/24/2017 [facility] Heart Rate 63 09/24/2017 [facility] Weight 59.545 09/24/2017 [facility] BMI Calculated 26.51 09/24/2017 [facility] Height 149.86 cm 09/24/2017 [facility] Systolic (mm Hg) 113 09/24/2017 [facility] Diastolic (mm Hg) 73 09/24/2017 [facility] BMI Calculated 27.12 08/06/2017 [facility] Weight 60.909 08/06/2017 [facility] Height 149.86 cm 08/06/2017 [facility] Respitory Rate 18 08/06/2017 [facility] Heart Rate 77 08/06/2017 [facility] Systolic (mm Hg) 146 08/06/2017 [facility] Diastolic (mm Hg) 86 08/06/2017 [facility] Height 149.86 cm 07/02/2017 [facility] Weight 59.091 07/02/2017 [facility] BMI Calculated 26.31 07/02/2017 [facility] Heart Rate 71 07/02/2017 [facility] Systolic (mm Hg) 181 07/02/2017 MH [facility] Diastolic (mm Hg) 79 07/02/2017 [facility] Respitory Rate 20 07/02/2017 MH [facility] Weight 59.091 2017 [facility] Respitory Rate 18 2017 [facility] Heart Rate 76 2017 MH [facility] Systolic (mm Hg) 156 2017 [facility] Diastolic (mm Hg) 86 2017 [facility] Height 149.86 cm 05/01/2017 [facility] BMI Calculated 25.3 05/01/2017 [facility] Weight 56.818 05/01/2017 MH [facility] Systolic (mm Hg) 136 05/01/2017 MH [facility] Diastolic (mm Hg) 85 05/01/2017 [facility] Heart Rate 67 05/01/2017 [facility] Respitory Rate 20 05/01/2017 [facility] Weight 56.818 03/19/2017 [facility] BMI Calculated 22.19 03/19/2017 [facility] Heart Rate 60 03/19/2017 [facility] Respitory Rate 18 03/19/2017 [facility] Height 160.02 cm 03/19/2017 MH [facility] Systolic (mm Hg) 120 03/19/2017 MH [facility] Diastolic (mm Hg) 78 03/19/2017 [facility] Weight 56.818 02/06/2017 [facility] BMI Calculated 25.3 02/06/2017 [facility] Height 149.86 cm 02/06/2017 [facility] Heart Rate 66 02/06/2017 [facility] Systolic (mm Hg) 116 02/06/2017 [facility] Diastolic (mm Hg) 73 02/06/2017 [facility] Respitory Rate 18 02/06/2017 [facility] BMI Calculated 25.3 01/31/2017 [facility] Height 149.86 cm 01/31/2017 [facility] Weight 56.818 01/31/2017 [facility] Heart Rate 68 01/31/2017 [facility] Respitory Rate 20 01/31/2017 [facility] Systolic (mm Hg) 132 01/31/2017 [facility] Diastolic (mm Hg) 81 01/31/2017 [facility] Weight 56.818 12/11/2016 [facility] Heart Rate 55 12/11/2016 [facility] Respitory Rate 16 12/11/2016 [facility] Systolic (mm Hg) 116 12/11/2016 [facility] Weight 56.818 11/21/2016 [facility] BMI Calculated 25.3 11/21/2016 [facility] Height 149.86 cm 11/21/2016 [facility] Systolic (mm Hg) 127 11/02/2016 [facility] Diastolic (mm Hg) 82 11/02/2016 [facility] Weight 55 11/02/2016 [facility] BMI Calculated 24.49 11/02/2016 [facility] Height 149.86 cm 11/02/2016 [facility] Heart Rate 61 11/02/2016 [facility] Respitory Rate 18 11/02/2016 [facility] Systolic (mm Hg) 104 09/27/2016 [facility] Diastolic (mm Hg) 58 09/27/2016 [facility] Respitory Rate 18 09/27/2016 [facility] Heart Rate 73 09/27/2016 [facility] Height 149.86 cm 08/15/2016 [facility] Heart Rate 67 08/14/2016 [facility] Respitory Rate 20 08/14/2016 [facility] Height 149.86 cm 08/14/2016 [facility] Weight 60 08/14/2016 [facility] BMI Calculated 26.72 08/14/2016 [facility] Systolic (mm Hg) 139 08/14/2016 [facility] Diastolic (mm Hg) 81 08/14/2016 [facility] Height 149.86 cm 08/08/2016 [facility] Weight 60 08/08/2016 [facility] BMI Calculated 26.72 08/08/2016 [facility] Systolic (mm Hg) 139 08/08/2016 [facility] Diastolic (mm Hg) 84 08/08/2016 [facility] Heart Rate 66 08/08/2016 [facility] Respitory Rate 20 08/08/2016 [facility] BMI Calculated 24.69 06/12/2016 [facility] Weight 55.455 06/12/2016 [facility] Height 149.86 cm 06/12/2016 [facility] Respitory Rate 20 06/12/2016 [facility] Heart Rate 63 06/12/2016 [facility] Systolic (mm Hg) 109 06/12/2016 [facility] Diastolic (mm Hg) 60 06/12/2016 [facility] Respitory Rate 20 05/01/2016 [facility] BMI Calculated 24.69 05/01/2016 [facility] Weight 55.455 05/01/2016 [facility] Height 149.86 cm 05/01/2016 [facility] Heart Rate 70 05/01/2016 [facility] Systolic (mm Hg) 132 05/01/2016 [facility] Diastolic (mm Hg) 71 05/01/2016 [facility] Systolic (mm Hg) 114 04/11/2016 [facility] Diastolic (mm Hg) 62 04/11/2016 [facility] Height 149.86 cm 04/11/2016 [facility] BMI Calculated 24.69 04/11/2016 [facility] Heart Rate 62 04/11/2016 [facility] Respitory Rate 20 04/11/2016 [facility] Weight 55.455 04/11/2016 [facility] Weight 55.909 12/27/2015 [facility] BMI Calculated 36.09 12/27/2015 [facility] Height 124.46 cm 12/27/2015 [facility] Respitory Rate 20 12/27/2015 [facility] Heart Rate 59 12/27/2015 [facility] Systolic (mm Hg) 108 12/27/2015 [facility] Diastolic (mm Hg) 62 12/27/2015 [facility] Systolic (mm Hg) 114 12/21/2015 [facility] Diastolic (mm Hg) 68 12/21/2015 [facility] Respitory Rate 20 12/21/2015 [facility] Heart Rate 61 12/21/2015 [facility] BMI Calculated 24.49 12/21/2015 [facility] Weight 55 12/21/2015 [facility] Height 149.86 cm 12/21/2015 [facility] Systolic (mm Hg) 82 08/30/2015 [facility] Diastolic (mm Hg) 50 08/30/2015 [facility] Respitory Rate 18 08/30/2015 [facility] Heart Rate 70 08/30/2015 [facility] Systolic (mm Hg) 96 05/31/2015 [facility] Diastolic (mm Hg) 52 05/31/2015 [facility] Heart Rate 67 05/31/2015 [facility] Respitory Rate 20 05/31/2015 [facility] Height 149.86 cm 04/19/2015 [facility] BMI Calculated 24.69 04/19/2015 [facility] Weight 55.455 04/19/2015 [facility] Respitory Rate 18 04/19/2015 [facility] Systolic (mm Hg) 109 04/19/2015 [facility] Diastolic (mm Hg) 64 04/19/2015 [facility] Heart Rate 61 04/19/2015 [facility] Weight 55.909 02/15/2015 [facility] BMI Calculated 24.89 02/15/2015 [facility] Height 149.86 cm 02/15/2015 [facility] Heart Rate 61 02/15/2015 [facility] Respitory Rate 18 02/15/2015 [facility] Systolic (mm Hg) 111 02/15/2015 [facility] Diastolic (mm Hg) 66 02/15/2015 [facility] BMI Calculated 25.3 02/07/2015 [facility] Weight 56.818 02/07/2015 [facility] Height 149.86 cm 02/07/2015 [facility] Respitory Rate 20 02/07/2015 [facility] Heart Rate 80 02/07/2015 [facility] Systolic (mm Hg) 116 02/07/2015 [facility] Diastolic (mm Hg) 68 02/07/2015 [facility] Height 149.86 cm 11/16/2014 [facility] Weight 56.818 11/16/2014 [facility] BMI Calculated 25.3 11/16/2014 [facility] Systolic (mm Hg) 105 11/16/2014 [facility] Diastolic (mm Hg) 59 11/16/2014 [facility] Respitory Rate 20 11/16/2014 [facility] Heart Rate 60 11/16/2014 [facility] Respitory Rate 18 08/17/2014 [facility] Systolic (mm Hg) 105 08/17/2014 [facility] Diastolic (mm Hg) 54 08/17/2014 [facility] Heart Rate 65 08/17/2014 [facility] Height 149.86 cm 08/17/2014 [facility] Weight 55.909 08/17/2014 [facility] BMI Calculated 24.89 08/17/2014 [facility] Systolic (mm Hg) 99 07/26/2014 [facility] Diastolic (mm Hg) 53 07/26/2014 [facility] Respitory Rate 20 07/26/2014 [facility] Heart Rate 67 07/26/2014 [facility] Weight 57.273 07/26/2014 [facility] BMI Calculated 25.5 07/26/2014 [facility] Height 149.86 cm 07/26/2014 [facility] Respitory Rate 18 05/19/2014 [facility] Weight 56.818 05/19/2014 [facility] Systolic (mm Hg) 110 05/19/2014 [facility] Diastolic (mm Hg) 90 05/19/2014 [facility] Heart Rate 60 05/19/2014 [facility] BMI Calculated 25.3 05/19/2014 [facility] Height 149.86 cm 05/19/2014 [facility] Height 149.86 cm 12/29/2013 [facility] Heart Rate 61 12/29/2013 [facility] Systolic (mm Hg) 100 12/29/2013 [facility] Diastolic (mm Hg) 52 12/29/2013 [facility] Height 149.86 cm 12/22/2013 [facility] Weight 56.364 12/22/2013 [facility] BMI Calculated 25.1 12/22/2013 [facility] Diastolic (mm Hg) 53 12/01/2013 [facility] Heart Rate 60 12/01/2013 [facility] Systolic (mm Hg) 99 12/01/2013 [facility] Respitory Rate 16 12/01/2013 [facility] Weight 58.636 12/01/2013 [facility] BMI Calculated 26.11 12/01/2013 [facility] Height 149.86 cm 12/01/2013 [facility] BMI Calculated 26.92 09/01/2013 [facility] Weight 60.455 09/01/2013 [facility] Height 149.86 cm 09/01/2013 [facility] Systolic (mm Hg) 90 09/01/2013 [facility] Diastolic (mm Hg) 53 09/01/2013 [facility] Heart Rate 72 09/01/2013 [facility] Weight 59.545 08/11/2013 [facility] BMI Calculated 26.51 08/11/2013 [facility] Height 149.86 cm 08/11/2013 [facility] Systolic (mm Hg) 108 08/11/2013 [facility] Diastolic (mm Hg) 58 08/11/2013 [facility] Respitory Rate 18 08/11/2013 [facility] Heart Rate 61 08/11/2013 [facility] Weight 61.364 06/09/2013 [facility] Height 149.86 cm 06/09/2013 [facility] Diastolic (mm Hg) 49 06/09/2013 [facility] Heart Rate 66 06/09/2013 [facility] Respitory Rate 16 06/09/2013 [facility] Temperature Oral (F) 98.7 F 06/09/2013 [facility] Systolic (mm Hg) 96 06/09/2013 [facility] Weight 61.364 06/02/2013 [facility] Respitory Rate 16 06/02/2013 [facility] Diastolic (mm Hg) 53 06/02/2013 [facility] Heart Rate 72 06/02/2013 [facility] Systolic (mm Hg) 94 06/02/2013 [facility] Respitory Rate 18 05/11/2013 [facility] Heart Rate 60 05/11/2013 [facility] Systolic (mm Hg) 100 05/11/2013 [facility] Diastolic (mm Hg) 53 05/11/2013 [facility] Weight 62.727 05/11/2013 [facility] Height 149.86 cm 05/11/2013 [facility] Systolic (mm Hg) 94 03/31/2013 [facility] Respitory Rate 18 03/31/2013 [facility] Heart Rate 62 03/31/2013 [facility] Diastolic (mm Hg) 55 03/31/2013 [facility] Weight 61.818 03/31/2013 [facility] Height 149.86 cm 03/31/2013 [facility] Weight 62.727 02/17/2013 [facility] Height 149.86 cm 02/17/2013 [facility] Heart Rate 67 02/17/2013 [facility] Diastolic (mm Hg) 48 02/17/2013 [facility] Systolic (mm Hg) 90 02/17/2013 [facility] Respitory Rate 16 02/17/2013 [facility] Weight 63.182 01/27/2013 [facility] Height 149.86 cm 01/27/2013 [facility] Respitory Rate 18 01/27/2013 [facility] Systolic (mm Hg) 91 01/27/2013 [facility] Heart Rate 73 01/27/2013 [facility] Diastolic (mm Hg) 51 01/27/2013 [facility] Heart Rate 61 11/28/2012 [facility] Systolic (mm Hg) 108 11/28/2012 [facility] Diastolic (mm Hg) 55 11/28/2012 [facility] Respitory Rate 18 11/28/2012 [facility] Height 149.86 cm 11/28/2012 [facility] Weight 64.091 11/28/2012 [facility] Respitory Rate 16 10/14/2012 [facility] Heart Rate 66 10/14/2012 [facility] Diastolic (mm Hg) 52 10/14/2012 [facility] Systolic (mm Hg) 94 10/14/2012 [facility] Height 149.86 cm 10/14/2012 [facility] Weight 67.273 10/14/2012 [facility] Weight 67.273 08/19/2012 [facility] Height 149.86 cm 08/19/2012 [facility] Respitory Rate 18 08/19/2012 [facility] Diastolic (mm Hg) 53 08/19/2012 [facility] Heart Rate 73 08/19/2012 [facility] Systolic (mm Hg) 91 08/19/2012 [facility] Respitory Rate 16 08/05/2012 [facility] Heart Rate 72 08/05/2012 [facility] Diastolic (mm Hg) 46 08/05/2012 [facility] Systolic (mm Hg) 94 08/05/2012 [facility] Weight 72.727 08/05/2012 [facility] Systolic (mm Hg) 93 07/02/2012 [facility] Diastolic (mm Hg) 45 07/02/2012 [facility] Respitory Rate 18 07/02/2012 [facility] Heart Rate 76 07/02/2012 [facility] Diastolic (mm Hg) 50 07/02/2012 [facility] Systolic (mm Hg) 92 07/02/2012 [facility] Heart Rate 79 07/02/2012 [facility] Respitory Rate 18 07/02/2012 [facility] Diastolic (mm Hg) 59 07/01/2012 [facility] Systolic (mm Hg) 104 07/01/2012 [facility] Respitory Rate 18 07/01/2012 [facility] Heart Rate 81 07/01/2012 [facility] Weight 65.540 05/30/2012 [facility] Height 149.86 cm 05/30/2012 [facility] Weight 64.545 05/20/2012 [facility] Height 149.86 cm 05/20/2012 [facility] Systolic (mm Hg) 99 05/20/2012 [facility] Diastolic (mm Hg) 57 05/20/2012 [facility] Respitory Rate 18 05/20/2012 [facility] Heart Rate 67 05/20/2012 [facility] Weight 65.000 04/15/2012 [facility] Height 149.86 cm 04/15/2012 [facility] Systolic (mm Hg) 106 04/15/2012 [facility] Diastolic (mm Hg) 62 04/15/2012 [facility] Heart Rate 69 04/15/2012 [facility] Respitory Rate 12 04/15/2012 [facility] Weight 62.727 01/29/2012 [facility] Height 149.86 cm 01/29/2012 [facility] Respitory Rate 18 01/29/2012 [facility] Heart Rate 74 01/29/2012 [facility] Diastolic (mm Hg) 66 01/29/2012 [facility] Systolic (mm Hg) 108 01/29/2012 [facility] Heart Rate 66 11/16/2011 [facility] Diastolic (mm Hg) 50 11/16/2011 [facility] Systolic (mm Hg) 95 11/16/2011 [facility] Respitory Rate 12 11/16/2011 [facility] Temperature Oral (F) 98.5 F 11/16/2011 [facility] Weight 63.636 11/16/2011 [facility] Height 149.86 cm 11/16/2011 [facility] Heart Rate 84 10/16/2011 [facility] Diastolic (mm Hg) 63 10/16/2011 [facility] Systolic (mm Hg) 106 10/16/2011 [facility] Respitory Rate 18 10/16/2011 [facility] Weight 63.636 10/16/2011 [facility] Height 149.86 cm 10/16/2011 [facility] Height 149.86 cm 09/03/2011 [facility] Weight 62.727 09/03/2011 [facility] Respitory Rate 16 09/03/2011 [facility] Diastolic (mm Hg) 64 09/03/2011 [facility] Heart Rate 70 09/03/2011 [facility] Systolic (mm Hg) 109 09/03/2011 [facility] Systolic (mm Hg) 111 08/28/2011 [facility] Diastolic (mm Hg) 55 08/28/2011 [facility] Heart Rate 70 08/28/2011 [facility] Temperature Oral (F) 98.1 F 08/28/2011 [facility] Weight 62.727 08/28/2011 [facility] Height 152.40 cm 08/28/2011 [facility] Weight 63.636 08/21/2011 [facility] Height 149.86 cm 08/21/2011 [facility] Systolic (mm Hg) 93 08/21/2011 [facility] Respitory Rate 12 08/21/2011 [facility] Diastolic (mm Hg) 50 08/21/2011 [facility] Heart Rate 72 08/21/2011 [facility] Weight 64.091 07/03/2011 [facility] Height 149.86 cm 07/03/2011 [facility] Heart Rate 74 07/03/2011 [facility] Diastolic (mm Hg) 58 07/03/2011 [facility] Respitory Rate 18 07/03/2011 [facility] Systolic (mm Hg) 104 07/03/2011 [facility] Weight 65.455 05/22/2011 [facility] Height 149.86 cm 05/22/2011 [facility] Systolic (mm Hg) 102 05/22/2011 [facility] Heart Rate 72 05/22/2011 [facility] Diastolic (mm Hg) 56 05/22/2011 [facility] Respitory Rate 18 05/22/2011 [facility] Heart Rate 79.0 04/03/2011 [facility] Diastolic (mm Hg) 61.0 04/03/2011 [facility] Systolic (mm Hg) 100.0 04/03/2011 [facility] Respitory Rate 18.0 04/03/2011 [facility] Weight 64.545 04/03/2011 [facility] Height 149.86 cm 04/03/2011 [facility] Weight 65.455 02/13/2011 [facility] Height 149.86 cm 02/13/2011 [facility] Systolic (mm Hg) 112.0 02/13/2011 [facility] Diastolic (mm Hg) 66.0 02/13/2011 [facility] Respitory Rate 16.0 02/13/2011 [facility] Heart Rate 81.0 02/13/2011 [facility] Encounters Location Location Encounter Encounter Reason Attending ADM DC Status Source Details Type Number For Provider Date Date Visit Outpatient [id number] 500 [facility] 05/22 Active [facility] 6 UNITS IN [place] 4 WKS [facility] Outpatient [id number] 3-4 [facility] 07/03 Active [facility] 7 [facility]TH [facility] [id number] 08/20 08/20 Active [facility] 8 UNITS [place]- /2011 [facility] Outpatient [id number] [facility]OGEN BARBARA 08/27 08/27 Active [facility] 8 IC [facility] Outpatient [id number] [facility] 09/02 Active [facility] 2 Outpatient [id number] [facility] 10/15 Active [facility] 9 [place]- [facility] Outpatient [id number] [facility] 11/15 Active [facility] 0 UNITS [facility] [id number] F/U [facility] 01/28 Active [facility] 1 [place]- 2011 [facility] Outpatient [id number] 500 JYOTI 02/18 Active [facility] 2 UNITS [place]- /2011 [facility] Outpatient [id number] F/U JYOTI 04/15 Active [facility] 3 [place]- /2011 [facility] Outpatient [id number] 500 J[place] 05/20 Active [facility] 4 UNITS [place]- [facility] [place] [id number] HERON 05/30 07/02 Active [facility] 5 RODRIGUEZ /2012 Outpatient [id number] F/U JYOTI 08/05 Active [facility] [id number] 500 J[facility] 08/19 Active [facility] 8 UNITS [place]- [facility] Outpatient [id number] F/U JYOTI 10/14 Active [facility] 7 [place]- [facility] Outpatient [id number] 500 J[place] 11/28 Active [facility] 9 UNITS [place]- [facility] Outpatient [id number] SLEEPINE CELESTE 01/09 Active [facility] 2 SS TALLAVAJHUL /2012 A Outpatient [id number] F/U JYOTI 01/27 Active [facility] 0 [place]- [facility] Outpatient [id number] 500 JYOTI 02/17 Active [facility] 1 UNITS [place]- /2012 [facility] Outpatient [id number] SLEEP CELESTE 03/31 Active [facility] 5 APNEA TALLAVAJHUL F/U A Outpatient [id number] SLEEP CELESTE 05/11 Active [facility] 6 APNEA TALLAVAJHUL F/U A Outpatient [id number] F/U JYOTI 06/02 Active [facility] 4 [place]- [facility] Outpatient [id number] 500 UNIT JYOTI 06/09 Active [facility] 3 [place]AY[place]- /2013 [facility] Outpatient [id number] _MAPID:[id number] Heron 08/11 08/12 [facility] [place] 8 [id number] [place]-Gu /2013 [facility] [id number] [facility] Outpatient [id number] Heron 09/01 09/02 [facility] [place] 9 [place]-Gu /2013 [facility] Outpatient [id number] Heron 12/01 12/02 [facility] [place] 0 [place]-Gu /2013 [facility] Outpatient [id number] Heron 12/22 12/23 MH [facility] [place] 2 [place]-Gu /2013 [facility] Tots [id number] Heron 12/29 01/28 MH [facility] [place] [facility] 0 [place]-Gu /2013 [facility] Tots [id number] Heron 02/02 03/04 [facility] [place] [id number] Heron 03/04 04/03 [facility] [place] [facility] [id number] Heron 05/19 05/20 [facility] [place] 6 [place]-Gu /2014 [facility] Outpatient [id number] Heron 07/26 07/27 [facility] [place] 9 [place]-Gu /2014 [facility] Outpatient [id number] Heron 08/17 08/18 [facility] [place] 0 [place]Gu /2014 [facility] Outpatient [id number] Heron 11/16 11/17 [facility] [place] 1 [place] /[facility] Out[facility] [id number] Celeste 02/07 02/08 [facility] 3 [facility]avajhul /2014 [facility] Outpatient [id number] Heron 02/15 02/16 [facility] 2 [place] /2014 [facility] Outpatient [id number] Heron 02/23 02/24 [facility] 5 [place] /2014 [facility] Outpatient [id number] Celeste 04/19 04/20 [facility] 4 Tallavajhul /2014 [facility] Outpatient [id number] Heron 05/31 06/01 [facility] 6 [facility]2015 [facility] Outpatient [id number] Heron 08/29 08/30 [facility] 8 [facility]2015 [facility] Outpatient [id number] Celeste 12/20 12/21 [facility] 0 [facility] Outpatient [id number] Heron 12/26 12/27 [facility] 9 [facility]- [facility]2015 [facility] Outpatient [id number] Celeste 01/10 01/10 [facility] 2 [facility] [place] [facility] [facility] Outpatient [id number] Celeste 02/21 02/21 [facility] 3 [facility] [place] [facility] Outpatient [id number] Celeste 04/11 04/12 [facility] 4 [facility] Outpatient [id number] Heron 05/01 05/02 [facility] 1 [facility]2015 [facility] Recurring [id number] Celeste 05/17 06/16 [facility] 3 [facility] Outpatient [id number] Celeste 06/12 06/13 [facility] 5 [facility] Recurring [id number] Celeste 06/26 07/26 [facility] 4 [facility] Outpatient [id number] Celeste 08/08 08/09 [facility] 7 [facility] Outpatient [id number] Heron 08/14 08/15 [facility] 6 [facility] Outpatient [id number] N[place] 09/27 09/28 [facility] 9 [facility] Outpatient [id number] N[place] 11/02 11/03 [facility] 1 [facility] Outpatient [id number] Naga 11/21 11/22 [facility] 2 [facility] Outpatient [id number] Heron 12/11 12/12 [facility] 0 [place] Outpatient [id number] N[place] 01/31 02/01 [facility] 5 [facility] Outpatient [id number] Celeste 02/06 02/07 [facility] 8 [facility] Outpatient [id number] Heron 03/19 03/20 [facility] 4 [place]- [facility] Outpatient [id number] N[place] 05/01 05/02 [facility] 7 [facility] Outpatient [id number] Heron 06/18 06/19 [facility] 8 [place]- [facility] Outpatient [id number] N[place] 07/02 07/03 [facility] 9 [facility] Outpatient [id number] Celeste 08/06 08/07 [facility] 0 [facility] Outpatient [id number] Heron 09/24 09/25 [facility] 1 [place] Outpatient [id number] N[place] 10/01 10/02 [facility] 2 [facility] Outpatient [id number] Heron 12/31 01/01 [facility] 3 [place] Outpatient [id number] N[place] 07/09 07/10 [facility] 7 [facility] Outpatient [id number] Heron 08/28 08/29 [facility] Spasticity 8 [place] /2018 [facility] Outpatient [id number] 500/40 [facility] Code Date Perfomer Comments [place] [address] 08/28/2018 [facility] muscle(s); neck muscle(s), excluding muscles of the larynx, unilateral (eg, for cervical dystonia, spasmodic torticollis) [place] [address] 08/28/2018 [facility] one extremity; 5 or [place] [address] 08/28/2018 [facility] muscle(s); muscle(s) innervated by facial nerve, unilateral (eg, for blepharospasm, hemifacial spasm) [place] [address] 12/31/2017 [facility] muscle(s); neck muscle(s), excluding muscles of the larynx, unilateral (eg, for cervical dystonia, spasmodic torticollis) [place] [address] 12/31/2017 [facility] one extremity; each additional extremity, 1-4 muscle(s) (List separately in addition to code for primary procedure) [place] [address] 12/31/2017 [facility] one extremity; 5 [place] [address] 12/31/2017 [facility] muscle(s); muscle(s) innervated by facial nerve, unilateral (eg, for blepharospasm, hemifacial spasm) [place] [address]1740 09/24/2017 [facility] muscle(s); neck muscle(s), excluding muscles of the larynx, unilateral (eg, for cervical dystonia, spasmodic torticollis) [place] [address] 09/24/2017 [facility] muscle(s); muscle(s) innervated by facial nerve, unilateral (eg, for blepharospasm, hemifacial spasm) [place] [address] 09/24/2017 [facility] one extremity; 5 or [place] [address] 09/24/2017 [facility] one extremity; each additional extremity, 1-4 muscle(s) (List separately in addition to code for primary procedure) [place] [address] 2017 [facility] muscle(s); neck muscle(s), excluding muscles of the larynx, unilateral (eg, for cervical dystonia, spasmodic torticollis) [place] [address] 2017 [facility] one extremity; 5 or more muscles [place] 16768 2017 [facility] muscle(s); muscle(s) innervated by facial nerve, unilateral (eg, for blepharospasm, hemifacial spasm) [place] [address] 03/19/2017 [facility] muscle(s); neck muscle(s), excluding muscles of the larynx, unilateral (eg, for cervical dystonia, spasmodic torticollis) [place] [address] 03/19/2017 [facility] muscle(s); muscle(s) innervated by facial nerve, unilateral (eg, for blepharospasm, hemifacial spasm) [place] [address] 03/19/2017 [facility] one extremity; 5 [place] [address] 12/11/2016 [facility] one extremity; 5 [place] 71667 12/11/2016 [facility] muscle(s); neck muscle(s), excluding muscles of the larynx, unilateral (eg, for cervical dystonia, spasmodic torticollis) [place] [address] 08/14/2016 [facility] muscle(s); neck muscle(s), excluding muscles of the larynx, unilateral (eg, for cervical dystonia, spasmodic torticollis) [place] [address] 08/14/2016 [facility] one extremity; 5 or [place] [address] 05/01/2016 [facility] one extremity; 5 or [place] 8[address] 05/01/2016 [facility] muscle(s); neck muscle(s), excluding muscles of the larynx, unilateral (eg, for cervical dystonia, spasmodic torticollis) [place] 43033 08/30/2015 [facility] one extremity; 5 [place] [address] 05/31/2015 [facility] one extremity; 5 or more muscles Femur X-ray [id number] [facility] Shunt construction [id number] [facility] Chemodenervation [id number] [facility] Femur X-ray [id number] [facility] Shunt construction [id number] [facility]
--- OUTSIDE RECORDS SUMMARY | 2018-10-08 14:24 | XMS REPORT | CCD ---
:1950 Author Organization [facility] Team Providers Name Role Phone NicoleJustin Consulting Provider Unavailable Shahana Grove Referring Provider Shane Mendieta Consulting Provider [phone] Alisha Deluna Consulting Provider Unavailable Carli Palmer Consulting Provider Unavailable ChartServer, Login Consulting Provider Unavailable Aditya Beltran Consulting Provider Unavailable Dolores Millard Consulting Provider Unavailable SYSTEM, SYSTEM Consulting Provider Unavailable Allergies, Adverse Reactions, Alerts Substance Reaction Status NKDA ?? Active Problem List Condition Effective Dates Status Clostridium difficile1 06/03/2009 Active 1Problem added by Discern Expert. Medications Medication Instructions Start Date End Date Status ziconotide 100 mcg/mL Substitution Allowed, q month 04/03/2011 ?? Ordered intrathecal solution q month pneumococcal 23-valent 0.5 ml, Route: IM, Drug 02/08/2009 02/08/2009 Completed vaccine Form: INJ, ONCE, Start date: 02/08/09 9:00:00, Stop date: 02/08/09 9:00:00 influenza virus vaccine, 0.5 ml, Route: IM, Drug 02/08/2009 02/08/2009 Completed inactivated Form: INJ, ONCE, Start date: 02/08/09 9:00:00, Stop date: 02/08/09 9:00:00 Immunizations Vaccine Date Status influenza virus vaccine, inactivated 02/08/2009 Not Done pneumococcal 23-valent vaccine 02/07/2009 Auth (Verified) pneumococcal 23-valent vaccine 02/08/2009 Not Done Vital Signs Most recent to oldest [Reference Range]: 1 Height 149.86 cm (04/03/2011 09:51:00) ?? Systolic Blood Pressure [90-140 mmHg] 100 mmHg (04/03/2011 09:51:00) ?? Diastolic Blood Pressure [60-90 mmHg] 61 mmHg (04/03/2011 09:51:00) ?? Respiratory Rate [14-20 BRMIN] 18 BRMIN (04/03/2011 09:51:00) ?? Peripheral Pulse Rate [60-100 bpm] 79 bpm (04/03/2011 09:51:00) ?? Weight 64.545 kg (04/03/2011 09:51:00) ??
--- OUTSIDE RECORDS SUMMARY | 2018-10-08 14:24 | XMS REPORT | CCD ---
:1950 Author Organization [facility] Team Providers Name Role Phone Shahana Grove Referring Provider Shane Mendieta Consulting Provider [id number] Alisha Deluna Consulting Provider Unavailable Carli Palmer Consulting Provider Unavailable ChartServer, Login Consulting Provider Unavailable Karen Gloria Consulting Provider [phone] Dolores Millard Consulting Provider Unavailable SYSTEM, SYSTEM Consulting Provider Unavailable Allergies, Adverse Reactions, Alerts Substance Reaction Status NKDA ?? Active Problem List Condition Effective Dates Status Clostridium difficile1 06/03/2009 Active 1Problem added by Discern Expert. Medications Medication Instructions Start Date End Date Status pneumococcal 23-valent 0.5 ml, Route: IM, Drug [...]
--- OUTSIDE RECORDS SUMMARY | 2018-10-08 14:24 | XMS REPORT | CCD ---
:1950 Author Organization [facility] Team Providers Name Role Phone Shahana Grove Referring Provider Shane Mendieta Consulting Provider [id number] Alisha Deluna Consulting Provider Unavailable Carli Palmer Consulting Provider Unavailable ChartServer, Login Consulting Provider Unavailable Andi Hunt Consulting Provider Unavailable Dolores Millard Consulting Provider [...] oldest [Reference Range]: 1 Height 149.86 cm (02/13/2011 11:05:00) ?? Systolic Blood Pressure [90-140 mmHg] 112 mmHg (02/13/2011 11:05:00) ?? Diastolic Blood Pressure [60-90 mmHg] 66 mmHg (02/13/2011 11:05:00) ?? Respiratory Rate [14-20 BRMIN] 16 BRMIN (02/13/2011 11:05:00) ?? Peripheral Pulse Rate [60-100 bpm] 81 bpm (02/13/2011 11:05:00) ?? Weight 65.455 kg (02/13/2011 11:05:00) ??
--- OUTSIDE RECORDS SUMMARY | 2018-10-08 14:24 | XMS REPORT | CCD ---
:1950 Author Organization [facility] Team Providers Name Role Phone Shahana Grove Referring Provider Allergies, Adverse Reactions, Alerts Substance Reaction Status NKDA Active Problem List Condition Effective Dates Status [...] oldest [Reference Range]: 1 Height 149.86 cm (05/22/2011 08:43:00) Systolic Blood Pressure [90-140 mmHg] 102 mmHg (05/22/2011 08:43:00) Diastolic Blood Pressure [60-90 mmHg] 56 mmHg *LOW* (05/22/2011 08:43:00) Respiratory Rate [14-20 BRMIN] 18 BRMIN (05/22/2011 08:43:00) Peripheral Pulse Rate [60-100 bpm] 72 bpm (05/22/2011 08:43:00) Weight 65.455 kg (05/22/2011 08:43:00)
--- OUTSIDE RECORDS SUMMARY | 2018-10-08 14:25 | XMS REPORT | CCD ---
:1950 Author Organization [facility] Team Providers Name Role Phone Marlo Carter Referring Provider Allergies, Adverse Reactions, Alerts Substance [...] recent to oldest [Reference Range]: 1 Height 152.40 cm (08/28/2011 13:11:00) Temperature Oral [96.4-99.1 DegF] 98.1 DegF (08/28/2011 13:11:00) Systolic Blood Pressure [90-140 mmHg] 111 mmHg (08/28/2011 13:11:00) Diastolic Blood Pressure [60-90 mmHg] 55 mmHg *LOW* (08/28/2011 13:11:00) Peripheral Pulse Rate [60-100 bpm] 70 bpm (08/28/2011 13:11:00) Weight 62.727 kg (08/28/2011 13:11:00)
--- OUTSIDE RECORDS SUMMARY | 2018-10-08 14:25 | XMS REPORT | CCD ---
:1950 Author Organization [facility] Team Providers Name Role Phone Shahana [...] oldest [Reference Range]: 1 Height 149.86 cm (10/16/2011 09:13:00) Systolic Blood Pressure [90-140 mmHg] 106 mmHg (10/16/2011 09:13:00) Diastolic Blood Pressure [60-90 mmHg] 63 mmHg (10/16/2011 09:13:00) Respiratory Rate [14-20 BRMIN] 18 BRMIN (10/16/2011 09:13:00) Peripheral Pulse Rate [60-100 bpm] 84 bpm (10/16/2011 09:13:00) Weight 63.636 kg (10/16/2011 09:13:00)
--- OUTSIDE RECORDS SUMMARY | 2018-10-08 14:25 | XMS REPORT | CCD ---
:1950 Author Organization [facility] Team Providers Name Role Phone Shahana Grove Referring Provider Allergies, Adverse Reactions, Alerts Substance Reaction Status NKDA Active Problem List Condition Effective Dates Status Clostridium difficile1 06/03/2009 Active 1Problem added by Discern Expert. Medications Medication Instructions Start Date End Date Status Atelvia 35 mg oral enteric PO, Substitution Allowed 07/03/2011 Ordered coated tablet pneumococcal 23-valent 0.5 ml, Route: IM, Drug [...] oldest [Reference Range]: 1 Height 149.86 cm (07/03/2011 11:35:00) Systolic Blood Pressure [90-140 mmHg] 104 mmHg (07/03/2011 11:35:00) Diastolic Blood Pressure [60-90 mmHg] 58 mmHg *LOW* (07/03/2011 11:35:00) Respiratory Rate [14-20 BRMIN] 18 BRMIN (07/03/2011 11:35:00) Peripheral Pulse Rate [60-100 bpm] 74 bpm (07/03/2011 11:35:00) Weight 64.091 kg (07/03/2011 11:35:00)
--- OUTSIDE RECORDS SUMMARY | 2018-10-08 14:25 | XMS REPORT | CCD ---
:1950 Author Organization [facility] Team Providers Name Role Phone Shahana Grove Referring Provider Allergies, Adverse Reactions, Alerts Substance Reaction Status NKDA Active Problem List Condition Effective Dates Status Clostridium difficile1 06/03/2009 Active Fracture Resolved Hay fever Resolved Numbness Resolved Sinusitis Resolved 1Problem added by Discern Expert. Medications Medication [...] oldest [Reference Range]: 1 Height 149.86 cm (04/15/2012 10:24:00) Systolic Blood Pressure [90-140 mmHg] 106 mmHg (04/15/2012 10:24:00) Diastolic Blood Pressure [60-90 mmHg] 62 mmHg (04/15/2012 10:24:00) Respiratory Rate [14-20 BRMIN] 12 BRMIN *LOW* (04/15/2012 10:24:00) Peripheral Pulse Rate [60-100 bpm] 69 bpm (04/15/2012 10:24:00) Weight 65.000 kg (04/15/2012 10:24:00) Procedures Procedures Date Related Diagnosis Femur X-ray Shunt construction
--- OUTSIDE RECORDS SUMMARY | 2018-10-08 14:25 | XMS REPORT | CCD ---
:1950 Author Organization [facility] Team Providers Name Role Phone Shahana [...] oldest [Reference Range]: 1 Height 149.86 cm (11/16/2011 09:58:00) Temperature Oral [96.4-99.1 DegF] 98.5 DegF (11/16/2011 09:58:00) Systolic Blood Pressure [90-140 mmHg] 95 mmHg (11/16/2011 09:58:00) Diastolic Blood Pressure [60-90 mmHg] 50 mmHg *LOW* (11/16/2011 09:58:00) Respiratory Rate [14-20 BRMIN] 12 BRMIN *LOW* (11/16/2011 09:58:00) Peripheral Pulse Rate [60-100 bpm] 66 bpm (11/16/2011 09:58:00) Weight 63.636 kg (11/16/2011 09:58:00)
--- OUTSIDE RECORDS SUMMARY | 2018-10-08 14:25 | XMS REPORT | CCD ---
:1950 Author Organization [facility] Team Providers Name Role Phone Marlo Carter [...] oldest [Reference Range]: 1 Height 149.86 cm (09/03/2011 13:27:00) Systolic Blood Pressure [90-140 mmHg] 109 mmHg (09/03/2011 13:27:00) Diastolic Blood Pressure [60-90 mmHg] 64 mmHg (09/03/2011 13:27:00) Respiratory Rate [14-20 BRMIN] 16 BRMIN (09/03/2011 13:27:00) Peripheral Pulse Rate [60-100 bpm] 70 bpm (09/03/2011 13:27:00) Weight 62.727 kg (09/03/2011 13:27:00)
--- OUTSIDE RECORDS SUMMARY | 2018-10-08 14:25 | XMS REPORT | CCD ---
:1950 Author Organization [facility] Team Providers Name Role Phone Shahana Grove [...] oldest [Reference Range]: 1 Height 149.86 cm (05/20/2012 11:04:00) Systolic Blood Pressure [90-140 mmHg] 99 mmHg (05/20/2012 11:04:00) Diastolic Blood Pressure [60-90 mmHg] 57 mmHg *LOW* (05/20/2012 11:04:00) Respiratory Rate [14-20 BRMIN] 18 BRMIN (05/20/2012 11:04:00) Peripheral Pulse Rate [60-100 bpm] 67 bpm (05/20/2012 11:04:00) Weight 64.545 kg (05/20/2012 11:04:00)
--- OUTSIDE RECORDS SUMMARY | 2018-10-08 14:25 | XMS REPORT | CCD ---
:1950 Author Organization [facility] Team Providers Name Role Phone Shahana [...] oldest [Reference Range]: 1 Height 149.86 cm (08/21/2011 08:48:00) Systolic Blood Pressure [90-140 mmHg] 93 mmHg (08/21/2011 08:48:00) Diastolic Blood Pressure [60-90 mmHg] 50 mmHg *LOW* (08/21/2011 08:48:00) Respiratory Rate [14-20 BRMIN] 12 BRMIN *LOW* (08/21/2011 08:48:00) Peripheral Pulse Rate [60-100 bpm] 72 bpm (08/21/2011 08:48:00) Weight 63.636 kg (08/21/2011 08:48:00)
--- OUTSIDE RECORDS SUMMARY | 2018-10-08 14:25 | XMS REPORT | CCD ---
:1950 Author Organization [facility] Team Providers Name Role Phone Shahana Grove [...] oldest [Reference Range]: 1 Height 149.86 cm (01/29/2012 09:04:00) Systolic Blood Pressure [90-140 mmHg] 108 mmHg (01/29/2012 09:04:00) Diastolic Blood Pressure [60-90 mmHg] 66 mmHg (01/29/2012 09:04:00) Respiratory Rate [14-20 BRMIN] 18 BRMIN (01/29/2012 09:04:00) Peripheral Pulse Rate [60-100 bpm] 74 bpm (01/29/2012 09:04:00) Weight 62.727 kg (01/29/2012 09:04:00)
--- OUTSIDE RECORDS SUMMARY | 2018-10-08 14:26 | XMS REPORT | CCD ---
:1950 Author Organization [facility] Team Providers Name Role Phone Shahana Grove Referring Provider Allergies, Adverse Reactions, Alerts Substance Reaction Status NKDA Active Problem List Condition Effective Dates Status Clostridium difficile1, 2 06/03/2009 - 07/15/2009 Resolved Fracture Resolved Hay fever Resolved Numbness Resolved Sinusitis Resolved 1CTA 07/15/[id number] added by Discern Expert. Medications Medication Instructions Start Date End Date Status Abilify 5 mg, PO, Bedtime, 08/05/2012 Ordered Substitution Allowed ziconotide given with baclofen pump, Substitution Allowed 08/05/2012 Ordered given with baclofen pump Cymbalta 60mh, Substitution 08/05/2012 Ordered Allowed Vitamin D3 1000 intl units 1,000 IntlUnit, 1 cap, 08/05/2012 Ordered oral capsule PO, Daily, 100 cap, Substitution Allowed, CAP pneumococcal 23-valent 0.5 ml, Route: IM, Drug 02/08/2009 02/08/2009 Completed vaccine Form: INJ, ONCE, Start date: 02/08/09 9:00:00, Stop date: 02/08/09 9:00:00 influenza virus vaccine, 0.5 ml, Route: IM, Drug 02/08/2009 02/08/2009 Completed inactivated Form: INJ, ONCE, Start date: 02/08/09 9:00:00, Stop date: 02/08/09 9:00:00 Atelvia 1 tab, PO, qWeek, 08/05/2012 Ordered Substitution Allowed Os-Stas 500 + D BID, Substitution 08/05/2012 Ordered Allowed, Maintenance Abilify 5 mg oral tablet 5 mg, 1 tab, PO, Bedtime, 08/05/2012 Ordered 30 tab, 3, 3, Substitution Allowed, TAB gabapentin 100 mg oral 100 mg, PO, TID, 08/05/2012 Ordered capsule Substitution Allowed Zocor 80 mg oral tablet 80 mg, 1 tab, PO, Daily, 08/05/2012 09/04/2012 Ordered 90 tab, Substitution Allowed, Maintenance gabapentin 400 mg oral 400 mg, PO, TID, 08/05/2012 Ordered capsule Substitution Allowed Senna 8.6 mg oral tablet 17.2 mg, 2 tab, PO, 08/05/2012 Ordered Bedtime, PRN, 100 tab, for constipation, Substitution Allowed, Maintenance, TAB Actonel Substitution Allowed 08/05/2012 Ordered Coleen 60 mg oral tablet 60 mg, 1 tab, PO, BID, 08/05/2012 Ordered PRN, 20 tab, Allergic reaction, Substitution Allowed, TAB MiraLax oral powder for 17 gm, PO, Daily, 255 gm, 08/05/2012 Ordered reconstitution Substitution Allowed, PDR/REC Cymbalta 60 mg, PO, BID, 08/05/2012 Ordered Substitution Allowed Immunizations Vaccine Date Status influenza virus vaccine, inactivated 02/08/2009 Not Done pneumococcal 23-valent vaccine 02/07/2009 Auth (Verified) pneumococcal 23-valent vaccine 02/08/2009 Not Done Vital Signs Most recent to oldest [Reference Range]: 1 Systolic Blood Pressure [90-140 mmHg] 94 mmHg (08/05/2012 09:45:00) Diastolic Blood Pressure [60-90 mmHg] 46 mmHg *LOW* (08/05/2012 09:45:00) Respiratory Rate [14-20 BRMIN] 16 BRMIN (08/05/2012 09:45:00) Peripheral Pulse Rate [60-100 bpm] 72 bpm (08/05/2012 09:45:00) Weight 72.727 kg (08/05/2012 09:45:00)
--- OUTSIDE RECORDS SUMMARY | 2018-10-08 14:26 | XMS REPORT | CCD ---
:1950 Author Organization [facility] Team Providers Name Role Phone Shahana Grove Referring Provider Allergies, Adverse Reactions, Alerts Substance Reaction Status NKDA Active Problem List Condition Effective Dates Status Clostridium difficile1, 2 06/03/2009 - 07/15/2009 Resolved Fracture Resolved Hay fever Resolved Numbness Resolved Sinusitis Resolved 1CTA 07/15/[id number] added by Discern Expert. Medications Medication Instructions [...] oldest [Reference Range]: 1 Height 149.86 cm (08/19/2012 09:34:00) Systolic Blood Pressure [90-140 mmHg] 91 mmHg (08/19/2012 09:34:00) Diastolic Blood Pressure [60-90 mmHg] 53 mmHg 1 *LOW* (08/19/2012 09:34:00) Respiratory Rate [14-20 BRMIN] 18 BRMIN (08/19/2012 09:34:00) Peripheral Pulse Rate [60-100 bpm] 73 bpm (08/19/2012 09:34:00) Weight 67.273 kg (08/19/2012 09:34:00) 1Result Comment: caregiver states usual BP
--- OUTSIDE RECORDS SUMMARY | 2018-10-08 14:26 | XMS REPORT | CCD ---
:1950 Author Organization [facility] Team Providers Name Role Phone Shahana Grove Referring Provider Allergies, Adverse Reactions, Alerts Substance Reaction Status NKDA Active Problem List Condition Effective Dates Status Clostridium difficile1, 2 06/03/2009 - 07/15/2009 Resolved Fracture Resolved Hay fever Resolved Numbness Resolved Sinusitis Resolved 1CTA 07/15/[id number] added by Discern Expert. Medications Medication Instructions [...] oldest [Reference Range]: 1 Height 149.86 cm (10/14/2012 09:48:00) Systolic Blood Pressure [90-140 mmHg] 94 mmHg (10/14/2012 09:48:00) Diastolic Blood Pressure [60-90 mmHg] 52 mmHg *LOW* (10/14/2012 09:48:00) Respiratory Rate [14-20 BRMIN] 16 BRMIN (10/14/2012 09:48:00) Peripheral Pulse Rate [60-100 bpm] 66 bpm (10/14/2012 09:48:00) Weight 67.273 kg (10/14/2012 09:48:00)
--- OUTSIDE RECORDS SUMMARY | 2018-10-08 14:26 | XMS REPORT | CCD ---
:1950 Author Organization [facility] Team Providers Name Role Phone Shahana Grove Referring Provider Allergies, Adverse Reactions, Alerts Substance Reaction Status NKDA Active Problem List Condition Effective Dates Status Clostridium difficile1, 2 06/03/2009 - 07/15/2009 Resolved Fracture Resolved Hay fever Resolved Numbness Resolved Sinusitis Resolved 1CTA 07/15/[id number] added by Discern Expert. Medications Medication Instructions [...] oldest [Reference Range]: 1 Height 149.86 cm (02/17/2013 10:06:00) Systolic Blood Pressure [90-140 mmHg] 90 mmHg (02/17/2013 10:06:00) Diastolic Blood Pressure [60-90 mmHg] 48 mmHg *LOW* (02/17/2013 10:06:00) Respiratory Rate [14-20 BRMIN] 16 BRMIN (02/17/2013 10:06:00) Peripheral Pulse Rate [60-100 bpm] 67 bpm (02/17/2013 10:06:00) Weight 62.727 kg (02/17/2013 10:06:00)
--- OUTSIDE RECORDS SUMMARY | 2018-10-08 14:26 | XMS REPORT | CCD ---
:1950 Author Organization [facility] Team Providers Name Role Phone Shahana Grove Referring Provider Allergies, Adverse Reactions, Alerts Substance Reaction Status NKDA Active Problem List Condition Effective Dates Status Clostridium difficile1, 2 06/03/2009 - 07/15/2009 Resolved Fracture Resolved Hay fever Resolved Numbness Resolved Sinusitis Resolved 1CTA 07/15/[id number] added by Discern Expert. Medications Medication Instructions [...]
--- OUTSIDE RECORDS SUMMARY | 2018-10-08 14:26 | XMS REPORT | CCD ---
:1950 Author Organization [facility] Team Providers Name Role Phone Shahana Frias Natasha Consulting Provider Allergies, Adverse Reactions, Alerts Substance Reaction Status NKDA Active Problem List Condition Effective Dates Status Clostridium difficile1, 2 06/03/2009 - 07/15/2009 Resolved Fracture Resolved Hay fever Resolved Numbness Resolved Sinusitis Resolved 1CTA 07/15/[id number] added by Discern Expert. Medications Medication Instructions Start Date End Date Status Actonel 30 mg, 1 tab, 06/02/2012 06/02/2012 Deleted Route: PO, Drug form: TAB, Q7D, Start date: 06/02/12 13:00:00, Duration: 30 day, Stop date: 06/30/12 6:30:00 Dagmar 5/325 oral tablet 1 tab, Route: PO, 05/30/2012 05/30/2012 Discontinued Drug Form: TAB, Dosing Weight 64.545, kg, Q4H, PRN Pain, Start date: 05/30/12 11:49:00, Duration: 30 day, Stop date: 06/29/12 11:48:00 ZICONOTIDE 100MCG/ML ZICONOTIDE 06/03/2012 07/02/2012 Discontinued 100MCG/ML, 2.8, Drug form: MISC, Route: INJ, Continuous, 06/03/12 16:30:00, Duration: 30 day, Stop date: 07/03/12 16:29:00 Dagmar 5/325 oral tablet 1 tab, Route: PO, 05/30/2012 07/02/2012 Discontinued Drug Form: TAB, Dosing Weight 64.545, kg, BID, Start date: 05/30/12 17:00:00, Duration: 60 day, Stop date: 09/27/12 8:00:00 aripiprazole 5 mg oral 5 mg, 1 tab, PO, 06/30/2012 Ordered tablet Bedtime, 30 tab, 2, 2, Substitution Allowed, TAB phenobarbital 1,290.9 mg, 19.86 05/30/2012 07/02/2012 Discontinued mL, Route: IVP, Drug form: INJ, PRN, Dosing Weight 64.545, kg, PRN Seizure, Start date: 05/30/12 11:49:00, Duration: 60 day, Stop date: 09/27/12 12:48:00 phenytoin 968.175 mg, 19.36 05/30/2012 07/02/2012 Discontinued mL, Route: IVP, Drug form: INJ, PRN, Dosing Weight 64.545, kg, PRN Seizure, Start date: 05/30/12 11:49:00, Duration: 60 day, Stop date: 09/27/12 12:48:00 MiraLax 17 gm, Route: PO, 05/31/2012 05/30/2012 Deleted Daily, Dosing Weight 65.54, kg, Start date: 05/31/12 8:30:00, Duration: 30 day, Stop date: 06/29/12 8:30:00 LORAzepam 2 mg, 1 mL, Route: 05/30/2012 07/02/2012 Discontinued IVP, Drug form: INJ, PRN, Dosing Weight 64.545, kg, PRN Seizure, Start date: 05/30/12 11:49:00, Duration: 60 day, Stop date: 09/27/12 12:48:00 Abilify 5 mg, 1 tab, Route: 06/05/2012 2012 Discontinued PO, Drug form: TAB, Daily, Dosing Weight 65.54, kg, Start date: 06/05/12 8:30:00, Duration: 60 day, Stop date: 08/03/12 8:30:00 Coleen-D 24 Hour 1 tab, Route: PO, 06/30/2012 06/29/2012 Deleted Dosing Weight 65.54, kg, Daily, Start date: 06/30/12 8:30:00, Duration: 30 day, Stop date: 07/29/12 8:30:00 ergocalciferol 1,000 IntlUnit, 05/31/2012 05/30/2012 Deleted Route: PO, Daily, Dosing Weight 65.54, kg, Start date: 05/31/12 8:30:00, Duration: 30 day, Stop date: 06/29/12 8:30:00 naproxen 250 mg, 1 tab, 05/30/2012 07/02/2012 Discontinued Route: PO, Drug form: TAB, BID, Dosing Weight 65.54, kg, PRN Pain, Start date: 05/30/12 14:45:00, Duration: 60 day, Stop date: 09/27/12 8:30:00 TNF Risedronate 5 mg TNF Risedronate 5 06/02/2012 06/02/2012 Voided With mg, 5 mg, Drug Results form: MISC, Route: PO, Q7D, 06/02/12 6:30:00, Duration: 30 day, Stop date: 06/30/12 6:30:00 baclofen Route: INTRATHECAL, 05/30/2012 07/02/2012 Discontinued Drug form: INJ, Continuous, PRN Other -See Comment, Start date: 05/30/12 15:14:00, Duration: 30 day, Stop date: 07/29/12 16:13:00 Dagmar 5/325 oral tablet 1 tab, PO, BID, 60 06/30/2012 Ordered tab, 2, 2, Substitution Allowed, Maintenance, TAB benzocaine-docusate 20 1 appl, MS, Daily, 06/30/2012 Ordered mg-283 mg rectal enema PRN, 30 doses or times, as needed for constipation, Substitution Allowed, Maintenance, PATRICIA Colace 100 mg oral capsule 100 mg, 1 cap, PO, 06/30/2012 Ordered BID, 60 cap, 2, 2, Substitution Allowed, CAP duloxetine 30 mg oral 60 mg, 2 cap, PO, 06/30/2012 Ordered delayed release capsule BID, 120 cap, 2, 2, Substitution Allowed, DRC risedronate 35 mg oral 35 mg, Route: PO, 05/30/2012 05/30/2012 Deleted tablet Drug form: TAB, Q7D, Dosing Weight 64.545, kg, Start date: 05/30/12 12:00:00, Duration: 30 day, Stop date: 06/27/12 9:00:00 Zocor 160 mg, Route: PO, 05/30/2012 05/30/2012 Canceled Drug form: TAB, Bedtime, Dosing Weight 64.545, kg, Start date: 05/30/12 21:00:00, Duration: 30 day, Stop date: 06/28/12 21:00:00 gabapentin 100 mg oral 5 caps, PO, TID, 06/30/2012 Ordered capsule 150 caplet, 2, 2, Substitution Allowed, CAP Levaquin 500 mg, 1 tab, 06/26/2012 07/02/2012 Discontinued Route: PO, Drug form: TAB, [id number], Dosing Weight 65.54, kg, Start date: 06/26/12 18:00:00, Duration: 7 day, Stop date: 07/02/12 18:00:00 polyethylene glycol 3350 17 gm, PO, Daily, 06/30/2012 Ordered oral powder for 30 doses or times, reconstitution 2, 2, Substitution Allowed, PDR/REC simvastatin 40 mg oral 80 mg, 2 tab, PO, 06/30/2012 Ordered tablet Bedtime, 60 tab, 2, 2, Substitution Allowed, Maintenance, TAB risedronate 5 mg oral 5 mg, 1 tab, PO, 06/30/2012 Ordered tablet Q7D, 4 tab, Substitution Allowed, TAB Cymbalta 60 mg, Route: PO, 05/31/2012 05/30/2012 Canceled Drug form: CAP, Daily, Dosing Weight 64.545, kg, Start date: 05/31/12 8:30:00, Duration: 30 day, Stop date: 06/29/12 8:30:00 Vitamin D3 1,000 unit, 1 tab, 05/31/2012 07/02/2012 Discontinued Route: PO, Drug form: TAB, Daily, Start date: 05/31/12 8:30:00, Duration: 60 day, Stop date: 07/29/12 8:30:00 Aleve 220 mg, Route: PO, 05/30/2012 05/30/2012 Discontinued Drug form: TAB, Q8H, Dosing Weight 64.545, kg, PRN Pain, Start date: 05/30/12 12:40:00, Duration: 30 day, Stop date: 06/29/12 12:39:00 Actonel 5 mg, 1 tab, Route: 06/03/2012 07/02/2012 Discontinued PO, Drug form: TAB, Q7D, Start date: 06/03/12 6:30:00, Duration: 30 day, Stop date: 07/29/12 6:30:00 Coleen 60 mg, 1 tab, 06/29/2012 07/02/2012 Discontinued Route: PO, Drug form: TAB, Q12H, Start date: 06/29/12 21:00:00, Duration: 30 day, Stop date: 07/29/12 9:00:00 senna 8.6 mg oral tablet 17.2 mg, 2 tab, 05/30/2012 07/02/2012 Discontinued Route: PO, Drug Form: TAB, Dosing Weight 64.545, kg, QNoon, Start date: 05/30/12 12:00:00, Duration: 60 day, Stop date: 09/26/12 12:00:00 Colace 100 mg oral capsule 100 mg, 1 cap, 05/30/2012 07/02/2012 Discontinued Route: PO, Drug form: CAP, BID, Dosing Weight 64.545, kg, Start date: 05/30/12 21:00:00, Duration: 60 day, Stop date: 09/27/12 8:30:00 Metamucil 1 pkt, Route: PO, 05/31/2012 07/02/2012 Discontinued Drug Form: PDR/REC, Dosing Weight 64.545, kg, Daily, Start date: 05/31/12 8:30:00, Duration: 60 day, Stop date: 09/27/12 8:30:00 Bactrim DS oral tablet 1 tab, Route: PO, 06/22/2012 06/26/2012 Discontinued Drug Form: TAB, Dosing Weight 65.54, kg, BID-10-28, Start date: 06/22/12 18:00:00, Duration: 30 day, Stop date: 07/22/12 6:00:00 pneumococcal 23-valent 0.5 ml, Route: IM, 02/08/2009 02/08/2009 Completed vaccine Drug Form: INJ, ONCE, Start date: 02/08/09 9:00:00, Stop date: 02/08/09 9:00:00 influenza virus vaccine, 0.5 ml, Route: IM, 02/08/2009 02/08/2009 Completed inactivated Drug Form: INJ, ONCE, Start date: 02/08/09 9:00:00, Stop date: 02/08/09 9:00:00 multivitamin with minerals 1 tab, Route: PO, 05/31/2012 07/02/2012 Discontinued Drug Form: TAB, Dosing Weight 64.545, kg, Daily, Start date: 05/31/12 8:30:00, Duration: 60 day, Stop date: 09/27/12 8:30:00 ergocalciferol 50,000 IntlUnit, 1 05/31/2012 06/03/2012 Discontinued cap, Route: PO, Drug form: CAP, Daily, Dosing Weight 64.545, kg, Start date: 05/31/12 8:30:00, Duration: 60 day, Stop date: 07/29/12 8:30:00 Os-Stas 500 + D 1 tab, Route: PO, 05/30/2012 07/02/2012 Discontinued Drug Form: CHEWTAB, Dosing Weight 64.545, kg, BID, Start date: 05/30/12 21:00:00, Duration: 60 day, Stop date: 09/27/12 8:30:00 TNF - Risedronate 30 mg TNF - Risedronate 06/02/2012 06/02/2012 Voided With 30 mg, 30 mg, Drug Results form: MISC, Route: PO, Q7D, 06/02/12 6:30:00, Duration: 30 day, Stop date: 06/30/12 6:30:00 MiraLax 17 gm, 1 pkt, 05/31/2012 07/02/2012 Discontinued Route: PO, Drug form: PWDR, Daily, Dosing Weight 64.545, kg, Start date: 05/31/12 8:30:00, Duration: 60 day, Stop date: 07/29/12 8:30:00 nitrofurantoin 100 mg, 1 cap, 05/31/2012 06/02/2012 Discontinued Route: PO, Drug form: CAP, [id number], Dosing Weight 65.54, kg, Priority: NOW, Start date: 05/31/12 8:40:00, Duration: 7 day, Stop date: 06/07/12 2:40:00 risedronate 30 mg oral 30 mg, 1 tab, PO, 06/30/2012 Ordered tablet Q7D, 4 tab, Substitution Allowed, TAB Enemeez Plus 1 appl, Route: MS, 05/30/2012 07/02/2012 Discontinued Drug Form: PATRICIA, Dosing Weight 64.545, kg, Daily, PRN as needed for constipation, Start date: 05/30/12 11:49:00, Duration: 60 day, Stop date: 09/27/12 8:30:00 gabapentin 100 mg oral 100 mg, 1 cap, 05/30/2012 07/02/2012 Discontinued capsule Route: PO, Drug form: CAP, TID, Dosing Weight 64.545, kg, Start date: 05/30/12 13:00:00, Duration: 60 day, Stop date: 09/27/12 8:30:00 bisacodyl 10 mg, 1 supp, 05/30/2012 07/02/2012 Discontinued Route: MS, Drug form: SUPP, Daily, Dosing Weight 65.54, kg, PRN Constipation, Start date: 05/30/12 18:04:00, Duration: 60 day, Stop date: 07/29/12 8:30:00 Fosamax 10 mg, 1 tab, 05/31/2012 05/30/2012 Deleted Route: PO, Drug form: TAB, [id number], Start date: 05/31/12 6:30:00, Duration: 60 day, Stop date: 07/29/12 6:30:00 gabapentin 400 mg oral 400 mg, 1 cap, 05/30/2012 07/02/2012 Discontinued capsule Route: PO, Drug form: CAP, TID, Dosing Weight 64.545, kg, Start date: 05/30/12 13:00:00, Duration: 60 day, Stop date: 09/27/12 8:30:00 senna 8.6 mg oral tablet 17.2 mg, 2 tab, PO, 06/30/2012 Ordered QNoon, 60 tab, 2, 2, Substitution Allowed, Maintenance, TAB psyllium 3.4 g/5.8 g oral 1 pkt, PO, Daily, 06/30/2012 Ordered powder 30 doses or times, Substitution Allowed, Maintenance, PDR/REC hydrochlorothiazide 12.5 mg, 0.5 tab, 05/31/2012 06/17/2012 Discontinued Route: PO, Drug form: TAB, Daily, Dosing Weight 64.545, kg, Start date: 05/31/12 8:30:00, Duration: 60 day, Stop date: 07/29/12 8:30:00 Multiple Vitamins with 1 tab, PO, Daily, 06/30/2012 Ordered Minerals oral tablet 30 tab, 2, 2, Substitution Allowed, Maintenance, TAB levofloxacin 500 mg oral 500 mg, 1 tab, PO, 06/30/2012 Ordered tablet [id number], 7 tab, Substitution Allowed, TAB fexofenadine 60 mg oral 60 mg, 1 tab, PO, 06/30/2012 Ordered tablet Q12H, 60 tab, 2, 2, Substitution Allowed, TAB cholecalciferol 1000 intl 1,000 IntlUnit, 1 06/30/2012 Ordered units oral capsule cap, PO, Daily, 30 cap, 2, 2, Substitution Allowed, CAP Zocor 80 mg, 2 tab, 05/30/2012 07/02/2012 Discontinued Route: PO, Drug form: TAB, Bedtime, Dosing Weight 64.545, kg, Start date: 05/30/12 21:00:00, Duration: 60 day, Stop date: 09/26/12 21:00:00 Actonel 5 mg, 1 tab, Route: 06/08/2012 06/02/2012 Deleted PO, Drug form: TAB, Q7D, Start date: 06/08/12 13:00:00, Duration: 30 day, Stop date: 07/06/12 6:30:00 Os-Stas 500 with D oral 1 cap, PO, BID, 60 06/30/2012 Ordered tablet cap, 2, 2, Substitution Allowed, Maintenance, CHEWTAB Actonel 30 mg, 1 tab, 06/03/2012 07/02/2012 Discontinued Route: PO, Drug form: TAB, Q7D, Start date: 06/03/12 6:30:00, Duration: 30 day, Stop date: 07/29/12 6:30:00 Abilify 5 mg, 1 tab, Route: 06/19/2012 07/02/2012 Discontinued PO, Drug form: TAB, Bedtime, Dosing Weight 65.54, kg, Start date: 06/19/12 21:00:00, Duration: 60 day, Stop date: 08/17/12 21:00:00 Cymbalta 60 mg, 2 cap, 05/30/2012 07/02/2012 Discontinued Route: PO, Drug form: DRC, BID, Dosing Weight 64.545, kg, Start date: 05/30/12 21:00:00, Duration: 60 day, Stop date: 09/27/12 8:30:00 Immunizations Vaccine Date Status influenza virus vaccine, inactivated 02/08/2009 Not Done pneumococcal 23-valent vaccine 02/07/2009 Auth (Verified) pneumococcal 23-valent vaccine 02/08/2009 Not Done Vital Signs Most recent to oldest 1 2 3 [Reference Range]: Height 149.86 cm (05/30/2012 12:53:00) Current Weight 67.273 kg 63.182 kg 66.818 kg (06/27/2012 13:57:00) (06/20/2012 11:21:00) (06/13/2012 11:45:00) Systolic Blood Pressure 93 mmHg 92 mmHg 104 mmHg [90-140 mmHg] (07/02/2012 08:54:00) (07/02/2012 00:00:00) (07/01/2012 16:43: 00) Diastolic Blood Pressure 45 mmHg 50 mmHg 59 mmHg [60-90 mmHg] *LOW* *LOW* *LOW* (07/02/2012 08:54:00) (07/02/2012 00:00:00) (07/01/2012 16:43:00) Respiratory Rate [14-20 18 BRMIN 18 BRMIN 18 BRMIN BRMIN] (07/02/2012 08:54:00) (07/02/2012 00:00:00) (07/01/2012 16:43:00) Peripheral Pulse Rate 76 bpm 79 bpm 81 bpm [60-100 bpm] (07/02/2012 08:54:00) (07/02/2012 00:00:00) (07/01/2012 16:43: 00) Weight 65.540 kg (05/30/2012 12:53:00) Results URINALYSIS Most recent to oldest [Reference 1 2 3 Range]: UA Turbidity [Clear] Slight Cloudy Slight (06/19/2012 00:01:00) *ABN* (05/31/2012 05:13:00) UA Color [Yellow] Yellow Light Yellow *NA* *NA* (06/19/2012 00:01:00) (05/31/2012 05:13:00) UA pH [5.0-8.0] 8.0 (06/19/2012 00:01:00) UA pH [5.0-8.0] 7.0 (05/31/2012 05:13:00) UA Spec Grav [<=1.030] 1.010 (06/19/2012 00:01:00) UA Spec Grav [<=1.030] 1.007 (05/31/2012 05:13:00) UA Glucose [Negative] Negative (06/19/2012 00:01:00) UA Glucose [Negative mg/dL] Negative mg/dL *NA* (05/31/2012 05:13:00) UA Blood [Negative] Negative Negative (06/19/2012 00:01:00) (05/31/2012 05:13:00) UA Ketones [Negative] Negative *NA* (06/19/2012 00:01:00) UA Ketones [Negative mg/dL] Negative mg/dL *NA* (05/31/2012 05:13:00) UA Protein [Negative] Negative (06/19/2012 00:01:00) UA Protein [Negative mg/dL] Negative mg/dL (05/31/2012 05:13:00) UA Urobilinogen [0.1-1.0 EU/dL] 0.2 EU/dL (06/19/2012 00:01:00) UA Urobilinogen [0.1-1.0 mg/dL] <=1.0 mg/dL *NA* (05/31/2012 05:13:00) UA Bili [Negative] Negative Negative *NA* *NA* (06/19/2012 00:01:00) (05/31/2012 05:13:00) UA Leuk Est [Negative] Trace Large *ABN* *ABN* (06/19/2012 00:01:00) (05/31/2012 05:13:00) UA Nitrite [Negative] Negative Positive (06/19/2012 00:01:00) *ABN* (05/31/2012 05:13:00) UA WBC [None Seen /HPF] 11-20 /HPF *ABN* (06/19/2012 00:01:00) UA WBC [0-5 /HPF] 112 /HPF *HI* (05/31/2012 05:13:00) UA RBC [0-2 /HPF] 1 /HPF (05/31/2012 05:13:00) UA Bacteria [None Seen /HPF] Moderate /HPF Many /HPF (06/19/2012 00:01:00) *ABN* (05/31/2012 05:13:00) UA Sq Epi [Few /LPF] Rare /LPF Occasional /LPF (06/19/2012 00:01:00) *NA* (05/31/2012 05:13:00) UA Amorph Jordyn [None Seen /HPF] Moderate /HPF Occasional /HPF *ABN* *NA* (06/19/2012 00:01:00) (05/31/2012 05:13:00) UA Mucus [None Seen /LPF] Few /LPF *NA* (05/31/2012 05:13:00) Micro? Performed (06/19/2012 00:01:00) STOOL TESTS Most recent to oldest [Reference Range]: 1 2 3 Occult Bld Stl [Negative] Negative (06/13/2012 15:00:00) CHEMISTRY Most recent to oldest 1 2 3 [Reference Range]: Sodium Lvl [135-145 mEq/L] 146 mEq/L 146 mEq/L 147 mEq/L *HI* *HI* *HI* (06/30/2012 05:20:00) (06/23/2012 05:20:00) (06/16/2012 04:30:00) Potassium Lvl [3.5-5.1 4.1 mEq/L 4.0 mEq/L 4.0 mEq/L mEq/L] (06/30/2012 05:20:00) (06/23/2012 05:20:00) (06/16/2012 04:30:00) Chloride Lvl [95-109 mEq/L] 106 mEq/L 107 mEq/L 106 mEq/L (06/30/2012 05:20:00) (06/23/2012 05:20:00) (06/16/2012 04:30:00) CO2 [24-32 mEq/L] 28 mEq/L 30 mEq/L 30 mEq/L (06/30/2012 05:20:00) (06/23/2012 05:20:00) (06/16/2012 04:30:00) AGAP [10.0-20.0 mEq/L] 16.1 mEq/L 13.0 mEq/L 15.0 mEq/L (06/30/2012 05:20:00) (06/23/2012 05:20:00) (06/16/2012 04:30:00) Creatinine Lvl [0.5-1.4 0.3 mg/dL 0.6 mg/dL 0.5 mg/dL mg/dL] *LOW* (06/23/2012 05:20:00) (06/16/2012 04:30:00) (06/30/2012 05:20:00) eGFR 125 mL/min/1.73m2 1 99 mL/min/1.73m2 2 106 mL/min/1.73m2 3 *NA* *NA* *NA* (06/30/2012 05:20:00) (06/23/2012 05:20:00) (06/16/2012 04:30:00) BUN [7-22 mg/dL] 17 mg/dL 17 mg/dL 14 mg/dL (06/30/2012 05:20:00) (06/23/2012 05:20:00) (06/16/2012 04:30:00) B/C Ratio [6-25] 30 *HI* (05/31/2012 05:12:00) Glucose Lvl [70-99 mg/dL] 87 mg/dL 4 87 mg/dL 5 78 mg/dL 6 (06/30/2012 05:20:00) (06/23/2012 05:20:00) (06/16/2012 04:30:00) Total Protein [6.4-8.4 6.5 g/dL g/dL] (05/31/2012 05:12:00) Albumin Lvl [3.5-5.0 g/dL] 3.6 g/dL (05/31/2012 05:12:00) Globulin [2.0-4.0 g/dL] 2.9 g/dL (05/31/2012 05:12:00) A/G Ratio [0.7-1.6] 1.2 (05/31/2012 05:12:00) Calcium Lvl [8.5-10.5 8.7 mg/dL 8.8 mg/dL 8.9 mg/dL mg/dL] (06/30/2012 05:20:00) (06/23/2012 05:20:00) (06/16/2012 04:30:00) Phosphorus [2.5-4.5 mg/dL] 4.7 mg/dL *HI* (05/31/2012 05:12:00) Magnesium Lvl [1.8-2.4 2.1 mg/dL mg/dL] (05/31/2012 05:12:00) ALT [0-65 unit/L] 34 unit/L (05/31/2012 05:12:00) AST [0-37 unit/L] 20 unit/L (05/31/2012 05:12:00) Alk Phos [39-136 unit/L] 60 unit/L (05/31/2012 05:12:00) Bili Total [0.2-1.3 mg/dL] 0.2 mg/dL (05/31/2012 05:12:00) Vitamin D 1,25 (OH)2 Total 36 pg/mL [18-72 pg/mL] *NA* (05/31/2012 05:12:00) Vitamin D2 1,25 (OH)2 < 8 pg/mL 7 *NA* (05/31/2012 05:12:00) Vitamin D3 1,25 (OH)2 36 pg/mL *NA* (05/31/2012 05:12:00) CHD Risk [3.90-5.80] 2.87 *LOW* (05/31/2012 05:12:00) Chol [120-200 mg/dL] 135 mg/dL (05/31/2012 05:12:00) Trig [0-200 mg/dL] 128 mg/dL (05/31/2012 05:12:00) HDL [>=35 mg/dL] 47 mg/dL (05/31/2012 05:12:00) LDL [0-129 mg/dL] 62 mg/dL (05/31/2012 05:12:00) Hgb A1C 4.9 % 8 *NA* (05/31/2012 05:12:00) Iron [30-160 ug/dl] 71 ug/dl (05/31/2012 05:12:00) % S[place] Fe [12-57 %] 30 % (05/31/2012 05:12:00) UIBC [110-370 ug/dl] 168 ug/dl (05/31/2012 05:12:00) TIBC [228-428 ug/dl] 239 ug/dl (05/31/2012 05:12:00) T4 Free [0.76-1.46 ng/dL] 0.65 ng/dL *LOW* (05/31/2012 05:12:00) TSH [0.360-3.740 uIU/mL] 1.980 uIU/mL (05/31/2012 05:12:00) 1Result Comment: The eGFR is calculated using the CKD-EPI formula. In most young , healthy individualsthe eGFR will be >90 mL/min/1.73m2. The eGFR declines with age. An eGFR of 60-89 may be normal in some populations, particularly the elderly, for whom the CKD-EPI formula has not been extensively validated. Use of the eGFR is not recommended in the following populations: Individuals with unstable creatinine concentrations, including patients and those with serious co-morbid conditions. Patients with extremes in muscle mass or diet. The data above are obtained from the National Kidney Disease Education Program ( NKDEP) which additionally recommends that when the eGFR is used in patients with extremes of body mass index for purposesof drug dosing, the eGFR should be multiplied by the estimated BMI.2Result Comment: The eGFR is calculated using the CKD-EPI formula. In most young, healthy individualsthe eGFR will be >90 mL/ min/1.73m2. The eGFR declines with age. An eGFR of 60-89 may be normal in some populations, particularly the elderly, for whom the CKD-EPI formula has not been extensively validated. Use of the eGFR is not recommended in the following populations: Individuals with unstable creatinine concentrations, including patients and those with serious co-morbid conditions. Patients with extremes in muscle mass or diet. The data above are obtained from the National Kidney Disease Education Program ( NKDEP) which additionally recommends that when the eGFR is used in patients with extremes of body mass index for purposesof drug dosing, the eGFR should be multiplied by the estimated BMI.3Result Comment: The eGFR is calculated using the CKD-EPI formula. In most young, healthy individualsthe eGFR will be >90 mL/ min/1.73m2. The eGFR declines with age. An eGFR of 60-89 may be normal in some populations, particularly the elderly, for whom the CKD-EPI formula has not been extensively validated. Use of the eGFR is not recommended in the following populations: Individuals with unstable creatinine concentrations, including patients and those with serious co-morbid conditions. Patients with extremes in muscle mass or diet. The data above are obtained from the National Kidney Disease Education Program ( NKDEP) which additionally recommends that when the eGFR is used in patients with extremes of body mass index for purposesof drug dosing, the eGFR should be multiplied by the estimated BMI.4Interpretive Data: Adult reference range values reflect the clinical guidelines of the [place] [employer].5Interpretive Data: Adult reference range values reflect the clinical guidelines of the [place] [employer].6Interpretive Data: Adult reference range values reflect the clinical guidelines of the [place] [employer].7Result Comment: Vitamin D2, 1,25 (OH)2: Reference ranges are established for total 1,25-dihydroxy vitamin D. Values for subcomponents D2 (derived from plant or fungal sources) and D3 (derived from human or animal sources) are provided for informational purposes only. This test(s) was developed and its performance characteristics have been determined by [employer], [place], [place]. Performance characteristics refer to the analytical performance of the test. Test Performed at: [facility], [address] [place] [id number] Jeyson [id number] Data: HbA1C% eAG( mg/dL) Interpretation 6.0 126 Very good control 6.5 140 Very good control 7.0 154 Good Control 7.5 169 Good Control 8.0 183 Marginal Control, take action to lower 8.5 197 Marginal Control, take action to lower 9.0 212 Poor Control, take action to lower 9.5 226 Poor Control, take action to lower 10.0 240 Poor Control, take action to lowerHEMATOLOGY Most recent to oldest 1 2 3 [Reference Range]: WBC [3.7-10.4 K/CMM] 4.7 K/CMM 4.7 K/CMM 5.0 K/CMM (06/30/2012 05:20:00) (06/23/2012 10:45:00) (06/16/2012 04:30:00) RBC [4.20-5.40 M/CMM] 3.92 M/CMM 4.43 M/CMM 3.90 M/CMM *LOW* (06/23/2012 10:45:00) *LOW* (06/30/2012 05:20:00) (06/16/2012 04:30:00) Hgb [12.0-16.0 g/dL] 12.1 g/dL 13.7 g/dL 12.1 g/dL (06/30/2012 05:20:00) (06/23/2012 10:45:00) (06/16/2012 04:30:00) Hct [36.0-48.0 %] 36.5 % 41.2 % 36.4 % (06/30/2012 05:20:00) (06/23/2012 10:45:00) (06/16/2012 04:30:00) MCV [81.0-99.0 fL] 93.0 fL 92.9 fL 93.2 fL (06/30/2012 05:20:00) (06/23/2012 10:45:00) (06/16/2012 04:30:00) MCH [27.0-31.0 pg] 30.8 pg 30.9 pg 31.0 pg (06/30/2012 05:20:00) (06/23/2012 10:45:00) (06/16/2012 04:30:00) MCHC [32.0-36.0 g/dL] 33.1 g/dL 33.3 g/dL 33.2 g/dL (06/30/2012 05:20:00) (06/23/2012 10:45:00) (06/16/2012 04:30:00) RDW [11.5-14.5 %] 12.8 % 12.4 % 12.4 % (06/30/2012 05:20:00) (06/23/2012 10:45:00) (06/16/2012 04:30:00) Platelet [133-450 K/CMM] 201 K/CMM 207 K/CMM 184 K/CMM (06/30/2012 05:20:00) (06/23/2012 10:45:00) (06/16/2012 04:30:00) MPV [7.4-10.4 fL] 8.5 fL 8.6 fL 8.6 fL (06/30/2012 05:20:00) (06/23/2012 10:45:00) (06/16/2012 04:30:00) Segs [45.0-75.0 %] 43.2 % 55.8 % 44.9 % *LOW* (06/23/2012 10:45:00) *LOW* (06/30/2012 05:20:00) (06/16/2012 04:30:00) Lymphocytes [20.0-40.0 %] 44.3 % 31.1 % 39.6 % *HI* (06/23/2012 10:45:00) (06/16/2012 04:30:00) (06/30/2012 05:20:00) Monocytes [2.0-12.0 %] 7.5 % 8.8 % 10.6 % (06/30/2012 05:20:00) (06/23/2012 10:45:00) (06/16/2012 04:30:00) Eosinophils [0.0-4.0 %] 4.9 % 4.2 % 4.6 % *HI* *HI* *HI* (06/30/2012 05:20:00) (06/23/2012 10:45:00) (06/16/2012 04:30:00) Basophils [0.0-1.0 %] 0.1 % 0.1 % 0.3 % (06/30/2012 05:20:00) (06/23/2012 10:45:00) (06/16/2012 04:30:00) Segs-Bands # [1.5-8.1 K/CMM] 2.0 K/CMM 2.6 K/CMM 2.3 K/CMM (06/30/2012 05:20:00) (06/23/2012 10:45:00) (06/16/2012 04:30:00) Lymphocytes # [1.0-5.5 2.1 K/CMM 1.5 K/CMM 2.0 K/CMM K/CMM] (06/30/2012 05:20:00) (06/23/2012 10:45:00) (06/16/2012 04:30:00) Monocytes # [0.0-0.8 K/CMM] 0.4 K/CMM 0.4 K/CMM 0.5 K/CMM (06/30/2012 05:20:00) (06/23/2012 10:45:00) (06/16/2012 04:30:00) Eosinophils # [0.0-0.5 0.2 K/CMM 0.2 K/CMM 0.2 K/CMM K/CMM] (06/30/2012 05:20:00) (06/23/2012 10:45:00) (06/16/2012 04:30:00) Basophils # [0.0-0.2 K/CMM] 0.0 K/CMM 0.0 K/CMM 0.0 K/CMM (06/30/2012 05:20:00) (06/23/2012 10:45:00) (06/16/2012 04:30:00) IMMUNOLOGY Most recent to oldest [Reference Range]: 1 2 3 Prealbumin [18.0-45.0 mg/dL] 24.5 mg/dL (05/31/2012 05:12:00) Microbiology Reports PROCEDURE:Culture: Urine STATUS: Auth (Verified) BODY SITE: COLLECTED DATE/TIME: 06/19/2012 00:01:00 SOURCE: Urine, Clean Catch FREE TEXT SOURCE: FINAL REPORTS Final Report>100,000 CFU/mL Proteus mirabilis 10,000 - 50,000 CFU/mL Enterococcus Species 10,000 - 50,000 CFU/mL Skin NidiaPRELIMINARY REPORTS Preliminary Report>100,000 CFU/mL Gram Negative Rods, Non-Lactose Fermenters Identification And Sensitivity Pending Preliminary ReportHolding For Better Growth Preliminary Report>100,000 CFU/mL Proteus mirabilis 10,000 - 50,000 CFU/mL Enterococcus Species , Sensitivity Pending SUSCEPTIBILITY REPORT ENTERO Antibiotic INTERP. VDIL Ampicillin S Levofloxacin S Nitrofurantoin S Tetracycline S Vancomycin S PROMIR Antibiotic INTERP. VDIL Amikacin S Ampicillin S Cefepime S Ceftriaxone S Gentamicin S Levofloxacin S Meropenem S Nitrofurantoin R Tetracycline R Tobramycin S Trimethoprim/Sulfamethoxazole S PROCEDURE:Culture: Urine STATUS: Auth (Verified) BODY SITE: COLLECTED DATE/TIME: 05/31/2012 13:28:00 SOURCE: Urine, Catheterized FREE TEXT SOURCE: FINAL REPORTS Final Report>10,000/cfu/ml Citrobacter freundii PRELIMINARY REPORTS Preliminary ReportNo Growth; Holding Preliminary Report>10,000/cfu/ml Gram Negative Rods, Lactose Fermenters Identification And Sensitivity PendingSUSCEPTIBILITY REPORT CITFRE Antibiotic INTERP. VDIL Amikacin S Cefepime S Ceftriaxone S Gentamicin S Levofloxacin S Meropenem S Nitrofurantoin S Tetracycline S Tobramycin S Trimethoprim/Sulfamethoxazole S PROCEDURE:Culture: Urine STATUS: Auth (Verified) BODY SITE: COLLECTED DATE/TIME: 05/31/2012 05:21:00 SOURCE: Urine, Catheterized FREE TEXT SOURCE: FINAL REPORTS Final Report>10,000/cfu/ml Escherichia coli PRELIMINARY REPORTS Preliminary Report>10,000/cfu/ml Escherichia coli Susceptibility To FollowSUSCEPTIBILITY REPORT EC Antibiotic INTERP. VDIL Amikacin S Ampicillin S Cefazolin S Cefepime S Ceftriaxone S Cefuroxime S ESBL Confirmation - Gentamicin S Levofloxacin S Meropenem S Nitrofurantoin S Tetracycline S Tobramycin S Trimethoprim/Sulfamethoxazole S
--- OUTSIDE RECORDS SUMMARY | 2018-10-08 14:27 | XMS REPORT | CCD ---
:1950 Author Organization [facility] Team Providers Name Role Phone Shahana Grove Referring Provider Allergies, Adverse Reactions, Alerts Substance Reaction Status NKDA Active Problem List Condition Effective Dates Status Clostridium difficile1, 2 06/03/2009 - 07/15/2009 Resolved Fracture Resolved Hay fever Resolved Numbness Resolved Sinusitis Resolved 1CTA 07/15/200995109Camfopw added by Discern Expert. Medications Medication Instructions Start Date End Date Status pneumococcal 23-valent 0.5 ml, Route: IM, Drug 02/08/2009 02/08/2009 Completed vaccine Form: INJ, ONCE, Start date: 02/08/09 9:00:00, Stop date: 02/08/09 9:00:00(Same as: Pneumovax 23) Refrigerate influenza virus vaccine, 0.5 ml, Route: IM, Drug 02/08/2009 02/08/2009 Completed inactivated Form: INJ, ONCE, Start date: 02/08/09 9:00:00, Stop date: 02/08/09 9:00:00(Same as: Fluzone) Immunizations Vaccine Date Status influenza virus vaccine, [...]
--- OUTSIDE RECORDS SUMMARY | 2018-10-08 14:27 | XMS REPORT | CCD ---
:1950 Author Organization [facility] Team Providers Name Role Phone Shahana Grove Referring Provider Allergies, Adverse Reactions, Alerts Substance Reaction Status NKDA Active Problem List Condition Effective Dates Status Clostridium difficile1, 2 06/03/2009 - 07/15/2009 Resolved Fracture Resolved Hay fever Resolved Numbness Resolved Sinusitis Resolved 1CTA 07/15/200930915Gusukvd added by Discern Expert. Medications Medication Instructions [...]
--- OUTSIDE RECORDS SUMMARY | 2018-10-08 14:27 | XMS REPORT | CCD ---
:1950 Author Organization [facility] Team Providers Name Role Phone Shahana Grove Referring Provider [phone] Allergies, Adverse Reactions, Alerts Substance Reaction Status NKDA Active Problem List Condition Effective Dates Status Clostridium difficile1, 2 06/03/2009 - 07/15/2009 Resolved Fracture Resolved Hay fever Resolved Numbness Resolved SHUKRI - Obstructive sleep apnea Resolved Sinusitis Resolved 1CTA 07/15/200992606Yfbmkkt added by Discern Expert. Medications Medication Instructions Start Date End Date Status pneumococcal 23-valent 0.5 ml, Route: IM, Drug 02/08/2009 02/08/2009 Completed vaccine Form: INJ, ONCE, Start date: 02/08/09 9:00:00, Stop date: 02/08/09 9:00:00(Same as: Pneumovax 23) Refrigerate influenza virus vaccine, 0.5 ml, Route: IM, Drug 02/08/2009 02/08/2009 Completed inactivated Form: INJ, ONCE, Start date: 02/08/09 9:00:00, Stop date: 02/08/09 9:00:00(Same as: Fluzone) Nuedexta oral capsule 1 cap, PO, BID, # 60 cap, 06/09/2013 Ordered 2 Refill(s) Immunizations Vaccine Date Status influenza virus vaccine, inactivated 02/08/2009 Not Done pneumococcal 23-valent vaccine 02/07/2009 Auth (Verified) pneumococcal 23-valent vaccine 02/08/2009 Not Done Vital Signs Most recent to oldest [Reference Range]: 1 Height 149.86 cm (06/09/2013 09:57:00) Temperature Oral [96.4-99.1 DegF] 98.7 DegF (06/09/2013 09:55:00) Systolic Blood Pressure [90-140 mmHg] 96 mmHg (06/09/2013 09:55:00) Diastolic Blood Pressure [60-90 mmHg] 49 mmHg *LOW* (06/09/2013 09:55:00) Respiratory Rate [14-20 BRMIN] 16 BRMIN (06/09/2013 09:55:00) Peripheral Pulse Rate [60-100 bpm] 66 bpm (06/09/2013 09:55:00) Weight 61.364 kg (06/09/2013 09:57:00) Procedures Procedures Date Related Diagnosis Chemodenervation
--- OUTSIDE RECORDS SUMMARY | 2018-10-08 14:27 | XMS REPORT | CCD ---
:1950 Author Organization [facility] Team Providers Name Role Phone Shahana Grove Referring Provider [phone] Allergies, Adverse Reactions, Alerts Substance Reaction Status NKDA Active Problem List Condition Effective Dates Status Clostridium difficile1, 2 06/03/2009 - 07/15/2009 Resolved Fracture Resolved Hay fever Resolved Numbness Resolved SHUKRI - Obstructive sleep apnea Resolved Sinusitis Resolved 1CTA 07/15/200933857Zpwkieo added by Discern Expert. Medications Medication Instructions Start Date End Date Status Flonase 0.05 mg/inh nasal 1 spray, NASAL, Bedtime, # 06/02/2013 Ordered spray 16 gm, 0 Refill(s) pneumococcal 23-valent 0.5 ml, Route: IM, Drug 02/08/2009 02/08/2009 Completed vaccine Form: INJ, ONCE, Start date: 02/08/09 9:00:00, Stop date: 02/08/09 9:00:00(Same as: Pneumovax 23) Refrigerate influenza virus vaccine, 0.5 ml, Route: IM, Drug 02/08/2009 02/08/2009 Completed inactivated Form: INJ, ONCE, Start date: 02/08/09 9:00:00, Stop date: 02/08/09 9:00:00(Same as: Fluzone) Melrude 5/325 oral tablet 1 tab, PO, Daily, 0 06/02/2013 Ordered Refill(s) Immunizations Vaccine Date Status influenza virus vaccine, inactivated 02/08/2009 Not Done pneumococcal 23-valent vaccine 02/07/2009 Auth (Verified) pneumococcal 23-valent vaccine 02/08/2009 Not Done Vital Signs Most recent to oldest [Reference Range]: 1 Systolic Blood Pressure [90-140 mmHg] 94 mmHg (06/02/2013 10:10:00) Diastolic Blood Pressure [60-90 mmHg] 53 mmHg *LOW* (06/02/2013 10:10:00) Respiratory Rate [14-20 BRMIN] 16 BRMIN (06/02/2013 10:10:00) Peripheral Pulse Rate [60-100 bpm] 72 bpm (06/02/2013 10:10:00) Weight 61.364 kg (06/02/2013 10:10:00)
--- OUTSIDE RECORDS SUMMARY | 2018-10-08 14:27 | XMS REPORT | CCD ---
:1950 Author Organization [facility] Team Providers Name Role Phone Shahana Grove Referring Provider Allergies, Adverse Reactions, Alerts Substance Reaction Status NKDA Active Problem List Condition Effective Dates Status Clostridium difficile1, 2 06/03/2009 - 07/15/2009 Resolved Fracture Resolved Hay fever Resolved Numbness Resolved Sinusitis Resolved 1CTA 07/15/200920537Lljsvyr added by Discern Expert. Medications Medication Instructions [...]
--- OUTSIDE RECORDS SUMMARY | 2018-10-08 14:27 | XMS REPORT | CCD ---
:1950 Author Organization [facility] Team Providers Name Role Phone Shahana Grove Referring Provider Allergies, Adverse Reactions, Alerts Substance Reaction Status NKDA Active Problem List Condition Effective Dates Status Clostridium difficile1, 2 06/03/2009 - 07/15/2009 Resolved Fracture Resolved Hay fever Resolved Numbness Resolved Sinusitis Resolved 1CTA 07/15/200996380Khhrsqs added by Discern Expert. Medications Medication Instructions [...] oldest [Reference Range]: 1 Height 149.86 cm (01/27/2013 09:46:00) Systolic Blood Pressure [90-140 mmHg] 91 mmHg (01/27/2013 09:46:00) Diastolic Blood Pressure [60-90 mmHg] 51 mmHg *LOW* (01/27/2013 09:46:00) Respiratory Rate [14-20 BRMIN] 18 BRMIN (01/27/2013 09:46:00) Peripheral Pulse Rate [60-100 bpm] 73 bpm (01/27/2013 09:46:00) Weight 63.182 kg (01/27/2013 09:46:00)
--- OUTSIDE RECORDS SUMMARY | 2018-10-08 14:27 | XMS REPORT | CCD ---
:1950 Author Organization [facility] Care Team Providers Name Role Phone Celeste Lovett Referring Provider Allergies, Adverse Reactions, Alerts Substance Reaction Status NKDA Active Problem List Condition Effective Dates Status Clostridium difficile1, 2 06/03/2009 - 07/15/2009 Resolved Fracture Resolved Hay fever Resolved Numbness Resolved Sinusitis Resolved 1CTA 07/15/200996562Llhnxsy added by Discern Expert. Medications Medication Instructions [...] oldest [Reference Range]: 1 Height 149.86 cm (03/31/2013 11:52:00) Systolic Blood Pressure [90-140 mmHg] 94 mmHg (03/31/2013 12:01:00) Diastolic Blood Pressure [60-90 mmHg] 55 mmHg *LOW* (03/31/2013 12:01:00) Respiratory Rate [14-20 BRMIN] 18 BRMIN (03/31/2013 12:01:00) Peripheral Pulse Rate [60-100 bpm] 62 bpm (03/31/2013 12:01:00) Weight 61.818 kg (03/31/2013 11:52:00)
--- OUTSIDE RECORDS SUMMARY | 2018-10-08 14:27 | XMS REPORT | CCD ---
:1950 Author Organization [facility] Care Team Providers Name Role Phone Celeste Lovett Referring Provider Allergies, Adverse Reactions, Alerts Substance Reaction Status NKDA Active Problem List Condition Effective Dates Status Clostridium difficile1, 2 06/03/2009 - 07/15/2009 Resolved Fracture Resolved Hay fever Resolved Numbness Resolved SHUKRI - Obstructive sleep apnea Resolved Sinusitis Resolved 1CTA 07/15/200924433Xhjoldc added by Discern Expert. Medications Medication Instructions [...] oldest [Reference Range]: 1 Height 149.86 cm (05/11/2013 10:58:00) Systolic Blood Pressure [90-140 mmHg] 100 mmHg (05/11/2013 10:59:00) Diastolic Blood Pressure [60-90 mmHg] 53 mmHg *LOW* (05/11/2013 10:59:00) Respiratory Rate [14-20 BRMIN] 18 BRMIN (05/11/2013 10:59:00) Peripheral Pulse Rate [60-100 bpm] 60 bpm (05/11/2013 10:59:00) Weight 62.727 kg (05/11/2013 10:58:00)
--- OUTSIDE RECORDS SUMMARY | 2018-10-08 14:27 | XMS REPORT | CCD ---
:1950 Author Organization [facility] Team Providers Name Role Phone Shahana Grove Referring Provider Allergies, Adverse Reactions, Alerts Substance Reaction Status NKDA Active Problem List Condition Effective Dates Status Clostridium difficile1, 2 06/03/2009 - 07/15/2009 Resolved Fracture Resolved Hay fever Resolved Numbness Resolved Sinusitis Resolved 1CTA 07/15/200910803Gqdcqpd added by Discern Expert. Medications Medication Instructions [...]
--- OUTSIDE RECORDS SUMMARY | 2018-10-08 14:29 | XMS REPORT ---
:1950 Author Organization [facility] [facility] Team Providers Name Role Phone Mukesh Campos Provider Role Unavailable Allergies, Adverse Reactions, Alerts Substance Reaction Event Type N.K.D.A. 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 Assessment Pain in joint of left shoulder M25.512 Active Assessment Pain in joint of right shoulder M25.511 Active Medications Medication Code Code Instructions Start End Status Dosage System Date Date Meloxicam [facility] 90045738862 7.5 MG Oral Active TAKE 1 TABLET BY MOUTH EVERY DAY Aripiprazole [facility] 79197989636 5 MG Oral Active TAKE 1 TABLET BY MOUTH EVERY DAY Duloxetine HCl [facility] 88636052315 40 MG Oral Active TAKE 1 CAPSULE BY MOUTH EVERY DAY Fluoxetine HCl [facility] 41610650612 20 MG Oral Active TAKE 1 CAPSULE BY MOUTH EVERY DAY Simvastatin [facility] 22958663540 40 MG Oral Active TAKE 1 TABLET BY MOUTH EVERY DAY IN THE EVENING Tramadol HCl [facility] 80793943681 50 MG Oral Active (Schedule IV Drug) TAKE 1 TABLET BY MOUTH EVERY 8 HOURS NEEDED FOR MODERATE PAIN. Risedronate [facility] 24425789322 150 MG Oral Active TAKE 1 Sodium TABLET BY MOUTH WITH A FULL GLASS OF WATER ON EMPTY STOMACH DONT EAT OR DRINK FOR 30 MINS Mobic [facility] 89906206176 7.5 MG Active TAKE 1 TABLET BY MOUTH EVERY DAY Gabapentin [facility] 12899304182 600 MG Oral Active TAKE 1 TABLET BY MOUTH THREE TIMES A DAY Results No Known Results Summary Purpose [employer] Submission
--- OUTSIDE RECORDS SUMMARY | 2018-10-08 14:29 | XMS REPORT ---
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
[2018-10-08 16:02] LABS: Urine Blood 2+ (NEG); Urine Glucose NEGATIVE (NEG); Urine Protein NEGATIVE (NEG)
[2018-10-08] MEDS ORDERED: NA CHLORIDE 0.9% 1,000 ML ONE (16:06)
[2018-10-08 16:15] LABS: Absolute Lymphocytes (CBC) 1.6 K/uL (0.7-4.9); Absolute Monocytes 1.2 K/uL (0.1-1.3); Basophils % 0.4 % (0-1.3); Eosinophils % 11.2 % (0-4.4); Hematocrit 34.7 % (36.0-45.0); Lymphocytes % 20.3 % (15.3-44.8); Monocytes % 15.4 % (3.3-12.3)
[2018-10-08 16:25] LABS: Bilirubin Direct 0.1 mg/dL (0-0.2); Bilirubin Total 0.5 mg/dL (0.2-1.0); CKMB Creatine Kinase MB 2.8 ng/mL (0.3-3.6); Potassium 3.7 mmol/L (3.5-5.1); Protein, Total 7.4 g/dL (6.4-8.2)
[2018-10-08 16:53] LABS: Urine Amorphous Sediment 2+ /HPF (NONE SEEN); Urine Bacteria 20-50 /HPF (<20); Urine Culture Reflex Order REFLEXED
[2018-10-08 16:54] LABS: Platelet Estimate ADEQ; Platelets, Giant NOTED
[2018-10-08 16:55] LABS: Blood Morphology Comment NOT SEEN (NOT SEEN)
--- NOTE | 2018-10-08 17:25 | EDPHYS ---
Physician Documentation [facility] Name: Joel Rios Age: 68 yrs Sex: Female : 1950 Arrival Date: 10/08/2018 Time: 14:09 Bed 30 Private MD: Maximo Mane C ED Physician Tacho Marcial HPI: 10/08 15:53 This 68 yrs old Female presents to ER via Wheelchair with complaints of snw Fever, Urinary Problem. 15:53 The patient reports fever, that was measured at 100.2 degrees Fahrenheit. Onset: The snw symptoms/episode began/occurred acutely. Modifying factors: recent cough, placed on abx. Pt had ua sent this week. low grade temp today. Severity of symptoms: At their worst the symptoms were mild. The patient has experienced similar episodes in the past. It is unknown whether or not the patient has recently seen a physician. 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 - Social history:: Smoking status: Patient/guardian denies using tobacco. - Ebola Screening: : No symptoms or risks identified at this time. ROS: 15:53 Eyes: Negative for injury, pain, redness, and discharge, ENT: Negative for injury, snw pain, and discharge, Neck: Negative for injury, pain, and swelling, Cardiovascular: Negative for chest pain, palpitations, and edema. 15:53 Abdomen/GI: Negative for abdominal pain, nausea, vomiting, diarrhea, and constipation, Back: Negative for injury and pain, : Negative for injury, bleeding, discharge, and swelling, MS/Extremity: Negative for injury and deformity, Skin: Negative for injury, rash, and discoloration, Neuro: Negative for headache, weakness, numbness, tingling, and seizure. 15:53 Constitutional: Positive for fatigue, fever. 15:53 Respiratory: Positive for cough. Exam: 15:41 Head/Face: Normocephalic, atraumatic. Eyes: Pupils equal round and reactive to light, snw extra-ocular motions intact. Lids and lashes normal. Conjunctiva and sclera are non-icteric and not injected. Cornea within normal limits. Periorbital areas with no swelling, redness, or edema. ENT: Nares patent. No nasal discharge, no septal abnormalities noted. Tympanic membranes are normal and external auditory canals are clear. Oropharynx with no redness, swelling, or masses, exudates, or evidence of obstruction, uvula midline. Mucous membranes moist. Neck: Trachea midline, no thyromegaly or masses palpated, and no cervical lymphadenopathy. Supple, full range of motion without nuchal rigidity, or vertebral point tenderness. No Meningismus. Chest/axilla: Normal chest wall appearance and motion. Nontender with no deformity. No lesions are appreciated. Cardiovascular: Regular rate and rhythm with a normal S1 and S2. No gallops, murmurs, or rubs. Normal PMI, no JVD. No pulse deficits. Respiratory: Lungs have equal breath sounds bilaterally, clear to auscultation and percussion. No rales, rhonchi or wheezes noted. No increased work of breathing, no retractions or nasal flaring. Abdomen/GI: Soft, non-tender, with normal bowel sounds. No distension or tympany. No guarding or rebound. No evidence of tenderness throughout. Back: No spinal tenderness. No costovertebral tenderness. Full range of motion. Skin: Warm, dry with normal turgor. Normal color with no rashes, no lesions, and no evidence of cellulitis. MS/ Extremity: Pulses equal, no cyanosis. Neurovascular intact. Full, normal range of motion. 15:41 Constitutional: The patient appears awake, pt with significant deficits post CVA. Spouse states pt has slept more than usual since yesterday. Low grade temp today. Pt placed on abx a few days ago second to cough 15:41 Neuro: normal for pt except for more sedation and low grade temp. Vital Signs: 14:18 BP 106 / 46; Pulse 82; Resp 16 S; Temp 99.2(O); Pulse Ox 92% on R/A; Pain 0/10; aa5 15:30 BP 106 / 48; Pulse 78; Resp 17; Temp 98.2; Pulse Ox 98% on R/A; rv 16:10 BP 112 / 64; Pulse 73; Resp 16; Pulse Ox 96% on R/A; rv 16:30 BP 115 / 55; Pulse 72; Resp 16; Temp 98.1; Pulse Ox 95% on R/A; rv 17:00 BP 108 / 61; Pulse 72; Resp 15; Pulse Ox 99% ; rv 18:03 BP 108 / 58; Pulse 72; Resp 15; Temp 97.7; Pulse Ox 96% ; rv MDM: 14:44 Patient medically screened. snw 16:50 Data reviewed: vital signs, nurses notes. Data interpreted: Pulse oximetry: on room air snw is 95 %. Interpretation: acceptable. Counseling: I had a detailed discussion with the patient and/or guardian regarding: the historical points, exam findings, and any diagnostic results supporting the discharge/admit diagnosis, lab results, radiology results, the need for outpatient follow up, for definitive care. Response to treatment: the patient's symptoms have mildly improved after treatment. Physician consultation: A Alhaji OJEDA was called at 16:51, regarding consult, patient's condition. 10/08 14:44 Order name: Urine Culture snw 10/08 14:44 Order name: Urine Microscopic Only; Complete Time: 16:54 snw 10/08 15:13 Order name: Basic Metabolic Panel w 10/08 15:13 Order name: Blood Culture Adult (2) w 10/08 15:13 Order name: CBC with Diff; Complete Time: 16:56 snw 10/08 15:13 Order name: Ckmb; Complete Time: 16:27 snw 10/08 15:13 Order name: CPK; Complete Time: 16:27 snw 10/08 15:13 Order name: Lactate; Complete Time: 16:43 snw 10/08 15:13 Order name: LFT's; Complete Time: 16:27 snw 10/08 15:13 Order name: Lipase; Complete Time: 16:27 snw 10/08 15:13 Order name: Procalcitonin; Complete Time: 17:20 snw 10/08 15:13 Order name: Protime (+inr); Complete Time: 16:19 snw 10/08 15:13 Order name: Ptt, Activated; Complete Time: 16:19 snw 10/08 15:23 Order name: Basic Metabolic Panel; Complete Time: 16:27 EDMS 10/08 14:44 Order name: Urine Dipstick-Ancillary (obtain specimen); Complete Time: 16:36 snw 10/08 15:02 Order name: Cath; Complete Time: 16:36 snw 10/08 15:13 Order name: Chest Single View XRAY snw 10/08 15:13 Order name: Accucheck; Complete Time: 16:36 snw 10/08 15:13 Order name: Cardiac monitoring; Complete Time: 16:36 snw 10/08 15:13 Order name: EKG - Nurse/Tech; Complete Time: 16:36 snw 10/08 15:13 Order name: IV Saline Lock - Large Bore; Complete Time: 16:36 snw 10/08 15:13 Order name: Labs collected and sent; Complete Time: 16:36 snw 10/08 15:13 Order name: O2 Per Protocol; Complete Time: 16:36 snw 10/08 15:23 Order name: Blood Culture EDMS 10/08 15:37 Order name: Urine Dipstick--Ancillary (enter results); Complete Time: 16:04 bd 10/08 15:50 Order name: Glucose, Ancillary Testing; Complete Time: 16:04 EDMS 10/08 16:17 Order name: Manual Differential; Complete Time: 16:56 EDMS 10/08 15:13 Order name: O2 Sat Monitoring; Complete Time: 16:36 snw 10/08 16:28 Order name: Recheck VS; Complete Time: 16:33 snw Administered Medications: 16:00 Drug: NS 0.9% 1000 ml Route: IV; Rate: 75 ml/hr; Site: right antecubital; rv 18:01 Follow up: IV Status: Completed infusion rv 16:35 Drug: NS 0.9% 500 ml Route: IV; Rate: bolus; Site: right antecubital; rv 18:01 Follow up: IV Status: Completed infusion; IV Intake: 500ml rv 17:45 Drug: Rocephin 1 grams Route: IV; Rate: calculated rate; Site: right antecubital; rv 18:02 Follow up: IV Status: Completed infusion rv Disposition: 10/09 07:04 Co-signature as Attending Physician, Tacho Marcial MD I agree with the assessment and eddie plan of care. Disposition: 10/08/18 17:25 Discharged to Home. Impression: Urinary tract infection, site not specified. - Condition is Stable. - Discharge Instructions: Urinary Tract Infection, Adult, Rehydration, Adult. - Medication Reconciliation Form, Thank You Letter, Antibiotic Education, Prescription Opioid Use form. - Follow up: Maximo Mane MD; When: 1 week; Reason: Recheck today's complaints, Continuance of care, Re-evaluation by your physician. Follow up: Emergency Department; When: As needed; Reason: Worsening of condition. - Notes: Continue current medications. Signatures: Dispatcher [employer] EDMS Tacho Marcial MD MD cha Therrien, Shelly, NURSING CLINICAL DIRECTOR-C NURSING CLINICAL DIRECTOR-Csnw Annalee Driver, RN RN aa5 Logan Ward RN RN rv Corrections: (The following items were deleted from the chart) 10/08 18:06 17:25 10/08/2018 17:25 Discharged to Home. Impression: Urinary tract infection, site rv not specified. Condition is Stable. Forms are Medication Reconciliation Form, Thank You Letter, Antibiotic Education, Prescription Opioid Use. Follow up: Maximo Mane; When: 1 week; Reason: Recheck today's complaints, Continuance of care, Re-evaluation by your physician. Follow up: Emergency Department; When: As needed; Reason: Worsening of condition. snw
--- NOTE | 2018-10-08 17:25 | ER ---
Nurse's Notes [facility] Name: Joel Rios Age: 68 yrs Sex: Female : 1950 Arrival Date: 10/08/2018 Time: 14:09 Bed 30 Private MD: Maximo Mane C Diagnosis: Urinary tract infection, site not specified Presentation: 10/08 14:15 Presenting complaint: states: "she had a fever of 100.2 F and she was a little aa5 confused this morning". Pt denies pain. Jiménez in place. Transition of care: patient was not received from another setting of care. Onset of symptoms was September 2018. Care prior to arrival: None. 14:15 Method Of Arrival: Wheelchair aa5 14:15 Acuity: STEFANY 3 aa5 16:41 Risk Assessment: Do you want to hurt yourself or someone else? Patient reports no rv desire to harm self or others. Initial Sepsis Screen: Does the patient meet any 2 criteria? No. Patient's initial sepsis screen is negative. Does the patient have a suspected source of infection? Yes: Dysuria/Frequency/Urgency/UTI. 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 - Social history:: Smoking status: Patient/guardian denies using tobacco. - Ebola Screening: : No symptoms or risks identified at this time. Screenin:40 Abuse screen: Denies threats or abuse. Denies injuries from another. Nutritional rv screening: No deficits noted. Tuberculosis screening: No symptoms or risk factors identified. Fall Risk None identified. Assessment: 16:38 General: Appears in no apparent distress. Behavior is calm, cooperative. Pain: Denies rv pain. Neuro: Level of Consciousness is awake, alert, obeys commands, Oriented to person, place, time, situation. Cardiovascular: Patient's skin is warm and dry. Rhythm is regular. Respiratory: Airway is patent Breath sounds are clear bilaterally. GI: No signs and/or symptoms were reported involving the gastrointestinal system. : No signs and/or symptoms were reported regarding the genitourinary system. : Parent/caregiver report the patient having dark urine. EENT: No signs and/or symptoms were reported regarding the EENT system. Derm: Skin is intact. Musculoskeletal: No signs and/or symptoms reported regarding the musculoskeletal system. Vital Signs: 14:18 BP 106 / 46; Pulse 82; Resp 16 S; Temp 99.2(O); Pulse Ox 92% on R/A; Pain 0/10; aa5 15:30 BP 106 / 48; Pulse 78; Resp 17; Temp 98.2; Pulse Ox 98% on R/A; rv 16:10 BP 112 / 64; Pulse 73; Resp 16; Pulse Ox 96% on R/A; rv 16:30 BP 115 / 55; Pulse 72; Resp 16; Temp 98.1; Pulse Ox 95% on R/A; rv 17:00 BP 108 / 61; Pulse 72; Resp 15; Pulse Ox 99% ; rv 18:03 BP 108 / 58; Pulse 72; Resp 15; Temp 97.7; Pulse Ox 96% ; rv ED Course: 14:09 Patient arrived in ED. rg4 14:09 Maximo Mane MD is Private Physician. rg4 14:12 Arm band placed on. aa5 14:16 Triage completed. aa5 14:43 Enedina Catherine [facility]C [facility]. snw 14:43 Tacho Marcial MD is Attending Physician. snw 15:00 Logan Wrad, DAVID is Primary Nurse. rv 15:30 Patient has correct armband on for positive identification. Placed in gown. Bed in low rv position. Call light in reach. Side rails up X 1. Adult w/ patient. teletypesetter monitor on. Pulse ox on. NIBP on. 15:45 First set of blood cultures drawn by me. Inserted saline lock: 22 gauge in right rv antecubital area, using aseptic technique. Blood collected. 16:09 Second set of blood cultures drawn by me. rv 16:30 EKG done, by technology sales representative. reviewed by Enedina CARDENAS. sm3 16:36 Basic Metabolic Panel Sent. rv 16:36 Blood Culture Adult (2) Sent. rv 16:36 Urine Culture Sent. rv 16:36 Urine Microscopic Only Sent. rv 17:24 Maximo Mane MD is Referral Physician. snw 18:03 No provider procedures requiring assistance completed. IV discontinued, intact, rv bleeding controlled, No redness/swelling at site. Pressure dressing applied. 20:35 Chest Single View XRAY In Process Unspecified. EDMS Administered Medications: 16:00 Drug: NS 0.9% 1000 ml Route: IV; Rate: 75 ml/hr; Site: right antecubital; rv 18:01 Follow up: IV Status: Completed infusion rv 16:35 Drug: NS 0.9% 500 ml Route: IV; Rate: bolus; Site: right antecubital; rv 18:01 Follow up: IV Status: Completed infusion; IV Intake: 500ml rv 17:45 Drug: Rocephin 1 grams Route: IV; Rate: calculated rate; Site: right antecubital; rv 18:02 Follow up: IV Status: Completed infusion rv Intake: 18:01 IV: 500ml; Total: 500ml. rv Outcome: 17:25 Discharge ordered by . snw 18:06 Discharged to home via wheelchair, with family. rv 18:06 Condition: good 18:06 Discharge instructions given to patient, family, Instructed on discharge instructions, follow up and referral plans. Demonstrated understanding of instructions, follow-up care. 18:06 Patient left the ED. rv Signatures: Dispatcher [employer] EDMS Enedina Catherine, HOPPER FEEDER-C HOPPER FEEDER-Csnw Annalee Driver, RN RN Elena Locke4 Tram Wynn 3 Logan Ward, RN RN rv
[2018-10-08] MEDS ORDERED: CEFTRIAXONE/SWI 1gm 1 GM/10 ML SYR ONE (17:50)
[2018-10-08 18:36] VITALS: BP 108/58; TEMP 97.7; O2SAT 96
--- NOTE | 2018-10-09 14:32 | EKG ---
Test Date: 2018-10-08 Test Time: 16:28:09 Senior Database Administrator: ILEANA MEASUREMENT RESULTS: Intervals: Rate: 73 IL: 124 QRSD: 92 QT: 414 QTc: 456 [place]: P: 52 IL: 124 QRS: 70 T: 53 INTERPRETIVE STATEMENTS: Normal sinus rhythm Normal ECG Compared to ECG 02/27/2012 00:24:34 T-wave abnormality no longer present Electronically Signed On 10-09-18 14:29:13 CDT by Joby Galeana
--- NOTE | 2018-10-09 15:07 | RAD REPORT ---
EXAM DESCRIPTION: Kyra Single View10/09/2018 11:30 am CLINICAL HISTORY: Fever COMPARISON: August 2015 FINDINGS: The lungs appear clear of acute infiltrate. The heart is normal size Scoliosis involves the thoracolumbar spine. Heart is probably normal size
== END 2018-10-08 18:06 | disposition home or self-care (01) ==
LOC: ER 14:05
DX: N39.0 Urinary tract infection, site not specified (principal); F32.9 Major depressive disorder, single episode, unspecified; I10 Essential (primary) hypertension; Z86.73 Personal history of transient ischemic attack (TIA), and cerebral infarction without residual deficits
CPT/HCPCS: 96365; 96361; 93005; 87040 ×2; 87088; 85025; 87086; 80048; 36415; 82550; 85610; 82962; 80076; 83605; 85730; 87077; 87186; 82553; 83690; 84145; 71045; 99284; J0696; J7030; 81003; 81015

== ENCOUNTER 2018-12-22 09:23 | Emergency (ER) | payer OTHER ==
--- OUTSIDE RECORDS SUMMARY | 2018-12-22 09:34 | XMS REPORT | Continuity of Care Document ---
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 Clostridium Resolved 06/03/19 Problem 02/20/2013 1CTA 07/15/2009 [facility] difficile1, 2 10 2Problem added by Discern Expert. Clostridium Resolved 06/03/19 Problem 11/27/2018 CTA 07/15/2009 [facility] difficile1, 2 10 Problem added by Discern Expert. 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 09 SPASM OF MUSCLE Active 05/13/19 [facility] 01 [id number] Active 05/13/19 [facility] 01 [id number] Active 05/13/19 [facility] 01 APPT Active 05/13/19 [facility] 01 SLEEPINESS Active 05/13/19 [facility] 01 Fracture Resolved Problem 02/20/2013 [facility] Hay fever Resolved Problem 02/20/2013 [facility] Numbness Resolved Problem 02/20/2013 [facility] Sinusitis Resolved Problem 02/20/2013 [facility] Fracture Resolved Problem 02/25/2016 [facility] Hay fever Resolved Problem 11/27/2018 [facility] Numbness Active Problem 11/27/2018 [facility] Sinusitis Resolved Problem 11/27/2018 [facility] SHUKRI - Obstructive Resolved Problem 11/27/2018 [facility] sleep apnea Spasm of muscle Active Problem 11/27/2018 [facility] Left spastic Active Problem 11/27/2018 [facility] hemiparesis Depression Active Problem 11/27/2018 [facility] Final: Dysthymic 02/03/2017 [facility] disorder 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[facility] spasm Meningitis, 09/24/2017 [facility] unspecified Insomnia, 10/26/2018 [facility] unspecified Obstructive sleep 10/26/2018 [facility] apnea (pediatric) 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, 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 Psychophysiologic 07/20/2018 [facility] insomnia Unspecified 07/20/2018 [facility] intracranial injury without loss of consciousness, sequela 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 FOLLOW-UP EXAM NOS Active [facility] SPASM OF MUSCLE Active [facility] ABN INVOLUN MOVEMENT Active [facility] NEC BRAIN INJURY NEC Active [facility] OBSTRUCTIVE SLEEP Active [facility] APNEA LATE EF-HEMPLGA SIDE Active [facility] NOS CHRONIC PAIN NEC Active [facility] SLEEP APNEA NOS Active [facility] OTHER MUSCLE SPASM Active [facility] OTHER ABNORMAL Active [facility] INVOLUNTARY MOVEMENTS INTCRAN INJ W/O LOSS Active [facility] [...] Provider Date Botulinum Toxin 400 unit, Inactive [facility] Type A Route: , 2018 ONCALL, Dosing Weight 59.091, kg, Start date: 11/25/18 13:00:00 CDT olmesartan 20 mg 20 mg=1 tab, Active 11/25/ [facility] oral tablet PO, Daily 2018 Botulinum Toxin 400 unit, Inactive 08/28/ [facility] Type A Route: , 2018 ONCALL, Dosing Weight 59.091, kg, Start date: 08/28/18 13:00:00 CDT Nifedipine 10 MG 10 mg=1 cap, Active 08/28/ [facility] Oral Capsule PO, 0 2019 Refill(s) DULoxetine 40 mg 40 mg=1 cap, Active 07/09/ [facility] oral delayed PO, Daily, # 2019 release capsule 30 cap, 6 Refill(s), Pharmacy: [facility]/pharmacy #[id number] Fluoxetine 20 MG 20 mg=1 cap, Active 07/09/ [facility] Oral Capsule PO, Daily, # 2019 [Prozac] 30 cap, 6 Refill(s), Pharmacy: [facility]/pharmacy #[id number] ARIPiprazole 5 mg 5 mg=1 tab, Active [facility] oral tablet PO, Daily, # 2019 30 tab, 6 Refill(s), Pharmacy: [facility]/pharmacy #[id number] Bp medication Bp Active [facility] medication, 2018 PO, Refill(s) 0 Botulinum Toxin 400 unit, Inactive [facility] Type A Route: IM, 2017 ONCALL, Dosing Weight 59.545, kg, Start date: 04/29/18 18:00:00 [employer] INSPECT[employer] Fluoxetine 20 MG 20 mg=1 cap, No Longer [facility] Oral Capsule PO, Daily, # Active 2018 [Prozac] 90 cap, 6 Refill(s), Pharmacy: [facility]/pharmacy #[id number] DULoxetine 40 mg 40 mg=1 cap, No Longer [facility] oral delayed PO, Daily, # Active 2018 release capsule 30 cap, 6 Refill(s), [id number] ARIPiprazole 5 mg 5 mg=1 tab, No Longer [facility] oral tablet PO, Daily, # Active 2017 30 tab, 4 Refill(s), Pharmacy: [facility]/pharmacy #[id number] Melatonin 5 MG 5 mg=1 tab, Active [facility] Sublingual Tablet PO, Bedtime, 2017 over the counter, 0 Refill(s) DULoxetine 40 mg 40 mg=1 cap, No Longer [facility] oral delayed PO, Daily, # Active 2018 release capsule 30 cap, 6 Refill(s), Pharmacy: [facility]/pharmacy #[id number] Botulinum Toxin 400 unit, Inactive [facility] Type A Route: IM, 2017 ONCALL, Dosing Weight 59.091, kg, Start date: 12/31/17 11:00:00 CDT Botulinum Toxin 400 unit, Inactive [facility] Type A Route: IM, 2017 ONCALL, Dosing Weight 59.091, kg, Start date: 09/24/17 11:00:00 CDT Home Medication 1 cap, PO, Active [facility] Daily, CBD- 2017 Canniba hemp oil, Refill(s) 0 Fluoxetine 20 MG 20 mg=1 cap, Active [facility] Oral Capsule PO, Daily, # 2018 [Prozac] 90 cap, 2 Refill(s), Pharmacy: [facility]/pharmacy #[id number] duloxetine 30 MG 30 mg=1 cap, Active [facility] Enteric Coated PO, Daily, # 2017 Capsule 90 cap, 2 [Cymbalta] Refill(s), Pharmacy: [facility]/pharmacy #[id number] ARIPiprazole 5 mg 5 mg=1 tab, Active [facility] oral tablet PO, Daily, # 2017 30 tab, 6 Refill(s), Pharmacy: [facility]/pharmacy #[id number] Botulinum Toxin 400 unit, Inactive [facility] Type A Route: IM, 2017 ONCALL, Dosing Weight 56.818, kg, Start date: 06/18/17 12:00:00 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, Inactive [facility] nA Route: IM, 2016 ONCALL, Dosing Weight 56.818, kg, Start date: 03/19/17 13:00:00 [employer]AMBO[employer] INSPECT[employer] meloxicam 7.5 mg 7.5 mg=1 tab, Active [facility] oral tablet PO, Daily, # 2016 30 tab, 0 Refill(s) Docusate Sodium 100 mg=1 cap, Active [facility] 100 MG Oral PO, Daily, 0 2017 Capsule [Colace] Refill(s) Probiotic Formula 1 cap, PO, Active [facility] Daily, 0 2016 Refill(s) duloxetine 30 MG 30 mg=1 cap, Active [facility] Enteric Coated PO, Daily, # 2017 Capsule 90 cap, 2 [Cymbalta] Refill(s) Fluoxetine [...] Enteric Coated PO, Daily, # 2017 Capsule 30 cap, 3 [Cymbalta] Refill(s), Pharmacy: [facility]/pharmacy #[id number] duloxetine 60 MG 60 mg=1 cap, Inactive 11/21/ [facility] Enteric Coated PO, Daily, # 2017 Capsule 30 cap, 3 [Cymbalta] Refill(s), Pharmacy: [facility]/pharmacy #[id number] Fluoxetine 20 MG 60 mg=3 cap, Active 11/02/ [facility] Oral Capsule PO, Daily, # 2017 [Prozac] 180 cap, 2 Refill(s), Pharmacy: [facility]/pharmacy #[id number] Fluoxetine 40 MG 40 mg=1 cap, Active 09/27/ [facility] Oral Capsule PO, Daily, # 2017 [Prozac] 30 cap, 0 Refill(s), Pharmacy: [facility]/pharmacy #[id number] Botulinum Toxin 400 unit, Inactive 08/14/ [facility] Type A Route: IM, 2016 ONCRAF, Dosing Weight 55.455, kg, Start date: 08/14/16 12:00:00 CDT Baclofen 0.5 microgram, Active 08/14/ [facility] MG/ML Injectable INTRATHECAL, 2017 Solution ONCALL, Dose=total daily dose, 0 Refill(s) Home Medication 1 tab, PO, Active 08/08/ [facility] TID, 2017 cramberry, Refill(s) 0 Botulinum Toxin 300 unit, Inactive 05/01/ [facility] Type A Route: IM, 2015 ONCRAF, Dosing Weight 55.909, kg, Start date: 05/01/16 12:00:00 [employer] INS[employer] tramadol 50 mg=1 tab, Active 04/11/ [facility] hydrochloride 50 PO, BID, 0 2016 MG Oral Tablet Refill(s) Botulinum Toxin 300 unit, Inactive 12/26/ [facility] Type A Route: IM, 2015 ONCALL, Dosing Weight 55.455, kg, Start date: 12/27/15 12:00:00 CDT, Duration: 30 day, Stop date: 01/26/16 11:59:00 CDT gabapentin 600 MG 600 mg=1 tab, Active 12/26/ [facility] Oral Tablet PO, TID, 0 2015 Refill(s) zolpidem 5 mg 5 mg=1 tab, Active 12/20/ [facility] oral tablet PO, Bedtime, 2016 PRN Sleep, X 30 day, # 30 tab, 5 Refill(s) zolpidem 5 mg 5 mg=1 tab, No Longer 11/07/ [facility] oral tablet PO, Bedtime, Active 2015 PRN Sleep, X 30 day, # 30 tab, 1 Refill(s), called to pharmacy onabotulinumtoxin 400 unit, Inactive [facility] A Route: IM, 2015 ONCALL, Dosing Weight 55.455, kg, Start date: 08/30/15 11:00:00 CDT, Duration: 30 day, Stop date: 09/29/15 10:59:00 CDT zolpidem 5 mg 5 mg=1 tab, Active [facility] oral tablet PO, Bedtime, 2015 PRN Sleep, X 30 day, # 30 tab, 2 Refill(s), called to pharmacy onabotulinumtoxin 400 unit, Inactive [facility] A Route: IM, 2015 ONCALL, Dosing Weight 55.909, kg, Start date: 05/31/15 [...] Active [facility] Oral Tablet PO, Daily, # 2014 [Abilify] 30 tab, 0 Refill(s) Nuedexta oral 1 cap, PO, Active Hayde- [facility] capsule BID, # 60 Vigil 2014 cap, 2 Refill(s) Flonase 0.05 1 spray, Active [facility] mg/inh nasal NASAL, 2013 spray Bedtime, # 16 gm, 0 Refill(s) [place] 5/325 oral 1 tab, PO, Active [facility] tablet Daily, 0 2013 Refill(s) Colace 100 mg 100 mg, 1 PO Active [facility] oral capsule cap, PO, 2012 Daily, PRN, 20 cap, Constipation, Substitution Allowed, CAP [place] 5/325 oral 1 tab, PO, PO Active 11/28[facility] tablet Q4-6H, PRN, 2012 30 tab, Substitution Allowed, Maintenance Zocor 80 mg oral 80 mg, 1 tab, PO Active 08/05[facility] tablet PO, Daily, 90 2012 tab, Substitution Allowed, Maintenance Senna 8.6 mg oral 17.2 mg, 2 PO Active 08/05[facility] tablet tab, PO, 2012 Bedtime, PRN, 100 tab, for constipation, Substitution Allowed, Maintenance, TAB Actonel Substitution Active 08/05[facility] Allowed 2012 MiraLax oral 17 gm, PO, PO Active 08/05[facility] powder for Daily, 255 2012 reconstitution gm, Substitution Allowed, PDR/REC gabapentin 100 mg 100 mg, PO, PO Active 08/05[facility] oral capsule TID, 2012 Substitution Allowed gabapentin 400 mg 400 mg, PO, PO Active 08/05[facility] oral capsule TID, 2012 Substitution Allowed Coleen 60 mg 60 mg, 1 tab, PO Active 08/05[facility] oral tablet PO, BID, PRN, 2012 20 tab, Allergic reaction, Substitution Allowed, TAB Cymbalta 60 mg, PO, PO Active 08/05[facility] BID, 2012 Substitution Allowed Cymbalta 60mh, Active 08/05[facility] Substitution 2012 Allowed Vitamin D3 1000 [...] TAB Abilify 5 mg, PO, PO Active 08/05[facility] Bedtime, 2012 Substitution Allowed ziconotide given with Active 08/05[facility] baclofen 2012 pump, Substitution Allowedgiven with baclofen pump Atelvia 1 tab, PO, PO Active 08/05[facility] qWeek, 2012 Substitution Allowed [place] 5/325 oral 1 tab, PO, PO Active Vona 06/30[facility] tablet BID, 60 tab, 2012 2, 2, Substitution Allowed, Maintenance, TAB benzocaine-docusa 1 appl, NV, NV Active Vona 06/30[facility] te 20 mg-283 mg Daily, PRN, 2012 rectal enema 30 doses or times, as needed for constipation, Substitution Allowed, Maintenance, PATRICIA Colace 100 mg 100 mg, 1 PO Active Vona 06/30[facility] oral capsule cap, PO, BID, 2012 60 cap, 2, 2, Substitution Allowed, CAP duloxetine 30 mg 60 mg, 2 cap, PO Active [place] 06/30[facility] oral delayed PO, BID, 120 2012 release capsule cap, 2, 2, Substitution Allowed, DRC gabapentin 100 mg 5 caps, PO, PO Active [facility]ona [facility] oral capsule TID, 150 2012 caplet, 2, 2, Substitution Allowed, CAP polyethylene 17 gm, PO, PO Active [facility]ona 06/30[facility] glycol 3350 oral Daily, 30 2012 powder for doses or reconstitution times, 2, 2, Substitution Allowed, PDR/REC simvastatin 40 mg 80 mg, 2 tab, PO Active [place] 06/30[facility] oral tablet PO, Bedtime, 2012 60 tab, 2, 2, Substitution Allowed, Maintenance, TAB risedronate 5 mg 5 mg, 1 tab, PO Active [place] 06/30[facility] oral tablet PO, Q7D, 4 2012 tab, Substitution Allowed, TAB risedronate 30 mg 30 mg, 1 tab, PO Active [facility] oral tablet PO, Q7D, 4 2012 tab, Substitution Allowed, TAB senna 8.6 mg oral 17.2 mg, 2 PO Active [facility] 06/30[facility] tablet tab, PO, 2012 QNoon, 60 tab, 2, 2, Substitution Allowed, Maintenance, TAB psyllium 3.4 1 pkt, PO, PO Active [facility] 06/30[facility] g/5.8 g oral Daily, 30 2012 powder doses or times, Substitution Allowed, Maintenance, PDR/REC Coleen-D 24 Hour 1 tab, Route: PO No Longer D[facility] PO, Dosing Active 2012 Weight 65.54, kg, Daily, Start date: 06/30/12 8:30:00, Duration: 30 day, Stop date: 07/29/12 8:30:00 Multiple Vitamins 1 tab, PO, PO Active [facility] with Minerals Daily, 30 2012 oral tablet tab, 2, 2, Substitution Allowed, Maintenance, TAB levofloxacin 500 500 mg, 1 PO Active [facility] mg oral tablet tab, PO, 2012 [id number], 7 tab, Substitution Allowed, TAB fexofenadine 60 60 mg, 1 tab, PO Active [facility] mg oral tablet PO, Q12H, 60 2012 tab, 2, 2, Substitution Allowed, TAB cholecalciferol 1,000 PO Active [facility] 1000 intl units IntlUnit, 1 2012 oral capsule cap, PO, Daily, 30 cap, 2, 2, Substitution Allowed, CAP Os-Stas 500 with D 1 cap, PO, PO Active [facility] oral tablet BID, 60 cap, 2012 2, 2, Substitution Allowed, Maintenance, [place] aripiprazole 5 mg 5 mg, 1 tab, PO Active [facility] oral tablet PO, Bedtime, 2012 30 tab, 2, 2, Substitution Allowed, TAB Coleen 60 mg, 1 tab, PO No Longer [facility] Route: PO, Active 2012 Drug form: TAB, Q12H, Start date: 06/29/12 21:00:00, Duration: 30 day, Stop date: 07/29/12 9:00:00 Levaquin 500 mg, 1 PO No Longer [facility] tab, Route: Active 2012 PO, Drug form: TAB, [id number], Dosing Weight 65.54, kg, Start date: 06/26/12 18:00:00, Duration: 7 day, Stop date: 07/02/12 18:00:00 Bactrim DS oral 1 tab, Route: PO No Longer [facility] tablet PO, Drug Active 2012 Form: TAB, Dosing Weight 65.54, kg, BID-06-18, Start date: 06/22/12 18:00:00, Duration: 30 day, [...] 08/03/12 8:30:00 ZICONOTIDE ZICONOTIDE INJ No Longer [place] [facility] 100MCG/ML 100MCG/ML, Active 2012 2.8, Drug form: MISC, Route: INJ, Continuous, 06/03/12 16:30:00, Duration: 30 day, Stop date: 07/03/12 16:29:00 Actonel 5 mg, 1 tab, PO No Longer [place] [facility] Route: PO, Active 2012 Drug form: TAB, Q7D, Start date: 06/03/12 6:30:00, Duration: 30 day, Stop date: 07/29/12 6:30:00 Actonel 30 mg, 1 tab, PO No Longer [facility] Route: PO, Active 2012 Drug form: TAB, Q7D, Start date: 06/02/12 13:00:00, Duration: 30 day, Stop date: 06/30/12 6:30:00 TNF Risedronate 5 TNF PO No Longer [facility] mg Risedronate Active 2013 5 mg, 5 mg, Drug form: MISC, Route: PO, Q7D, 06/02/12 6:30:00, Duration: 30 day, Stop date: 06/30/12 6:30:00 TNF - Risedronate TNF - PO No Longer [facility] 30 mg Risedronate Active 2012 30 [...] Metamucil 1 pkt, Route: PO No Longer [place] [facility] PO, Drug Active 2012 Form: PDR/REC, Dosing Weight 64.545, kg, Daily, Start date: 05/31/12 8:30:00, Duration: 60 day, Stop date: 09/27/12 8:30:00 multivitamin with 1 tab, Route: PO No Longer [facility] minerals PO, Drug Active 2012 Form: TAB, Dosing Weight 64.545, kg, Daily, Start date: 05/31/12 8:30:00, Duration: 60 day, Stop date: 09/27/12 8:30:00 hydrochlorothiazi 12.5 mg, 0.5 PO No Longer [place] [facility] de tab, Route: Active 2012 PO, Drug form: TAB, Daily, Dosing Weight 64.545, kg, Start date: 05/31/12 8:30:00, Duration: 60 day, Stop date: 07/29/12 8:30:00 Fosamax 10 mg, 1 tab, PO No Longer [facility] Route: PO, Active 2012 Drug form: TAB, [id number], Start date: 05/31/12 6:30:00, Duration: 60 day, Stop date: 07/29/12 6:30:00 Zocor 160 mg, PO No Longer [place] [facility] Route: PO, Active 2012 Drug form: TAB, Bedtime, Dosing Weight 64.545, kg, Start date: 05/30/12 21:00:00, Duration: 30 day, Stop date: 06/28/12 21:00:00 Colace 100 mg 100 mg, 1 PO No Longer [place] [facility] oral capsule cap, Route: Active 2012 PO, Drug form: CAP, BID, Dosing Weight 64.545, kg, Start date: 05/30/12 21:00:00, Duration: 60 day, Stop date: 09/27/12 8:30:00 Os-Stas 500 + D 1 tab, Route: PO No Longer [facility] PO, Drug Active 2012 Form: [place], Dosing Weight 64.545, kg, BID, Start date: 05/30/12 21:00:00, Duration: 60 day, Stop date: 09/27/12 8:30:00 Cymbalta 60 mg, 2 cap, PO No Longer [place] [facility] Route: PO, Active 2012 Drug form: DRC, BID, Dosing Weight 64.545, kg, Start date: 05/30/12 21:00:00, Duration: 60 day, Stop date: 09/27/12 8:30:00 bisacodyl 10 mg, 1 NV No Longer [place] [facility] supp, Route: Active 2012 NV, Drug form: SUPP, Daily, Dosing Weight 65.54, kg, PRN Constipation, Start date: 05/30/12 18:04:00, Duration: 60 day, Stop date: 07/29/12 8:30:00 [place] 5/325 oral 1 tab, Route: PO No Longer [place] [facility] tablet PO, Drug Active 2012 Form: TAB, Dosing Weight 64.545, kg, BID, Start date: 05/30/12 17:00:00, Duration: 60 day, Stop date: 09/27/12 8:00:00 baclofen Route: INTRATHECAL No Longer [facility] INTRATHECAL, Active 2012 Drug form: INJ, Continuous, PRN Other -See Comment, Start date: 05/30/12 15:14:00, Duration: 30 day, Stop date: 07/29/12 16:13:00 naproxen 250 mg, 1 PO No Longer [place] [facility] tab, Route: Active 2012 PO, Drug form: TAB, BID, Dosing Weight 65.54, kg, PRN Pain, Start date: 05/30/12 14:45:00, Duration: 60 day, Stop date: 09/27/12 8:30:00 gabapentin 100 mg 100 mg, 1 PO No Longer [place] [facility] oral capsule cap, Route: Active 2012 [...] oral 17.2 mg, 2 PO No Longer [place] [facility] tablet tab, Route: Active 2012 PO, Drug Form: TAB, Dosing Weight 64.545, kg, QNoon, Start date: 05/30/12 12:00:00, Duration: 60 day, Stop date: 09/26/12 12:00:00 [place] 5/325 oral 1 tab, Route: PO No Longer [place] [facility] tablet PO, Drug Active 2012 Form: TAB, Dosing Weight 64.545, kg, Q4H, PRN Pain, Start date: 05/30/12 11:49:00, Duration: 30 day, Stop date: 06/29/12 11:48:00 phenobarbital 1,290.9 mg, IVP No Longer [place] [facility] 19.86 mL, Active 2012 Route: IVP, Drug form: INJ, PRN, Dosing Weight 64.545, kg, PRN Seizure, Start date: 05/30/12 11:49:00, Duration: 60 day, Stop date: 09/27/12 12:48:00 phenytoin 968.175 mg, IVP No Longer [place] [facility] 19.36 mL, Active 2012 Route: IVP, Drug form: INJ, PRN, Dosing Weight 64.545, kg, PRN Seizure, Start date: 05/30/12 11:49:00, Duration: 60 day, Stop date: 09/27/12 12:48:00 LORAzepam 2 mg, 1 mL, IVP No Longer [place] [facility] Route: IVP, Active 2012 Drug form: INJ, PRN, Dosing Weight 64.545, kg, PRN Seizure, Start date: 05/30/12 11:49:00, Duration: 60 day, Stop date: 09/27/12 12:48:00 Enemeez Plus 1 appl, NV No Longer [facility] Route: NV, Active 2012 Drug Form: PATRICIA, Dosing Weight 64.545, kg, Daily, PRN as needed for constipation, Start date: 05/30/12 11:49:00, Duration: 60 day, Stop date: 09/27/12 8:30:00 Atelvia 35 mg PO, PO Active [facility] oral enteric Substitution 2011 coated tablet Allowed ziconotide 100 Substitution Active [facility] mcg/mL Allowed, q 2010 intrathecal monthq month solution pneumococcal 0.5 ml, Inactive SYSTEM 23-valent vaccine Route: IM, 2008 [facility], Drug Form: [facility] INJ, ONCE, Start date: 02/08/09 9:00:00, Stop date: 02/08/09 9:00:00(Same as: Pneumovax 23) Refrigerate influenza virus 0.5 ml, Inactive SYSTEM vaccine, Route: IM, 2008 [facility], inactivated Drug Form: [facility] INJ, ONCE, Start date: 02/08/09 9:00:00, Stop date: 02/08/09 9:00:00(Same as: Fluzone) Allergies, Adverse Reactions, Alerts Substance Category Reaction Severity Reaction Status Date Comments Source type Reported No Known Assertion Drug [facility] Medication allergy Allergies Immunizations Immunization Date Given Site Status Last Updated Comments Source pneumococcal 02/08/2009 Not Given [facility], 23-valent vaccine [facility] influenza virus 02/08/[address] [facility], vaccine, [facility] inactivated pneumococcal 02/08/[address] [facility] 23-valent vaccine influenza virus 02/08/2009 Not Given Estela [facility] vaccine, inactivated pneumococcal 02/07/2009 completed [facility], 23-valent vaccine [facility] pneumococcal 02/07/2009 [facility] 02/07/2009 Left Arm completed [facility] 23-valent vaccine Results Order Name Results Value Reference Date Interpretation Comments Source Range CHEM PANEL Glucose Lvl 100 70 - 99 08/29 [facility] CHEM PANEL BUN 20 7 - 22 08/29 [facility] CHEM PANEL Creatinine 0.95 0.50 - 08/29 [facility] Lvl 1.40 CHEM PANEL CO2 33 24 - 32 08/29 [facility] CHEM PANEL Calcium Lvl 9.2 8.5 - 10.5 08/29 [facility] CHEM PANEL AGAP 10.3 10.0 - 08/29 [facility] 20.0 CHEM PANEL Chloride Lvl 88 95 - 109 08/29 [facility] CHEM PANEL Sodium Lvl 128 135 - 145 08/29 [facility] CHEM PANEL Potassium Lvl 3.3 3.5 - 5.1 08/29 [facility] CHEM PANEL eGFR 64 08/29 Result [facility] Comment: The eGFR is calculated using the CKD-EPI formula. In most young, healthy individuals the eGFR will be >90 mL/min/1.73m2 . The eGFR declines with age. An eGFR of 60-89 may be normal in some populations, particularly the elderly, for whom the CKD-EPI formula has not been extensively validated. Use of the eGFR is not recommended in the following populations:< br/>
Kelsea viduals with unstable creatinine concentration s, including patients and those with serious co-morbid conditions.<b r/>
Patie nts with extremes in muscle mass or diet.

[...] AND UA Spec Grav 1.010 <=1.030 08/29 [facility] STOOL URINE AND UA pH 6.0 5.0 - 8.0 08/29 [facility] STOOL URINE AND UA Protein 30 mg/dL Negative 08/29 [facility] STOOL mg/dL URINE AND UA Leuk Est Moderate Negative 08/29 [facility] STOOL *ABN* /2015 (08/30/15 11:00 AM) URINE AND UA Blood Moderate Negative 08/29 [facility] STOOL *ABN* (08/30/15 11:00 AM) URINE AND UA Ketones Negative Negative 08/29 [facility] STOOL *NA* (08/30/15 11:00 AM) URINE AND UA Bili Negative Negative 08/29 [facility] STOOL *NA* (08/30/15 11:00 AM) URINE AND UA Nitrite Negative Negative 08/29 [facility] STOOL (08/30/15 11:00 AM) URINE AND UA 0.2 0.1 - 1.0 08/29 [facility] STOOL Urobilinogen URINE AND UA Turbidity Slight Cloudy Clear 08/29 [facility] STOOL (08/30/15 11:00 AM) URINE AND UA Color Yellow Yellow 08/29 [facility] STOOL *NA* (08/30/15 11:00 AM) URINE AND UA Bacteria Many /HPF None Seen 08/29 [facility] STOOL /HPF URINE AND UA RBC 3-5 /HPF 0 - 2 08/29 [facility] STOOL URINE AND UA Sq Epi Moderate Few /LPF 08/29 [facility] STOOL /LPF /2015 URINE AND UA WBC 11-20 /HPF None Seen 08/29 [facility] STOOL /HPF CHEMISTRY eGFR 125 06/30 NA <sup>1</sup>R [facility] esult Comment: The eGFR is calculated using the CKD-EPI formula. In most young, healthy individuals the eGFR will be >90 mL/min/1.73m2 . The eGFR declines with age. An eGFR of 60-89 may be normal in some populations, particularly the elderly, for whom the CKD-EPI formula has not been extensively validated. Use of the eGFR is not recommended in the following populations:& lt;br/>
I ndividuals with unstable creatinine concentration s, including patients and those with serious co-morbid conditions.<b r/>
Patie nts with extremes in muscle mass or diet.

The data above are obtained from the National Kid[employer] Education Program (NKDEP) which additionally recommends that when the eGFR is used in patients with extremes of body mass index for purposes of drug dosing, the eGFR should be multiplied by the estimated BMI. CHEMISTRY Sodium Lvl 146 135 - 145 06/30 [facility] CHEMISTRY Potassium Lvl 4.1 3.5 - 5.1 06/30 Normal [facility] /2012 CHEMISTRY Calcium Lvl 8.7 8.5 - 10.5 06/30 Normal [facility] /2012 CHEMISTRY Chloride Lvl 106 95 - 109 06/30 Normal [facility] /2012 CHEMISTRY CO2 28 24 - 32 06/30 Normal [facility] /2012 CHEMISTRY Glucose Lvl 87 70 - 99 06/30 Normal <sup>4</sup>I [facility] nterpretive Data: Adult reference range values reflect the clinical guidelines
of the [place] [employer]. CHEMISTRY Creatinine 0.3 0.5 - 1.4 06/30 LOW [facility] Lv CHEMISTRY BUN 17 7 - 22 06/30 Normal [facility] /2012 CHEMISTRY AGAP 16.1 10.0 - 06/30 Normal [facility] 20.0 /2012 HEMATOLOGY MPV 8.5 7.4 - 10.4 06/30 Normal [facility] /2012 HEMATOLOGY Platelet 201 133 - 450 06/30 Normal [facility] /2012 HEMATOLOGY RDW 12.8 11.5 - 02 Normal [facility] 14.5 /2012 HEMATOLOGY MCHC 33.1 32.0 - 06/30 Normal [facility] 36.0 /2012 HEMATOLOGY WBC 4.7 3.7 - 10.4 06/30 Normal [facility] /2012 HEMATOLOGY Hct 36.5 36.0 - 02 Normal [facility] 48.0 /2012 HEMATOLOGY MCH 30.8 27.0 - 02 Normal [facility] 31.0 /2012 HEMATOLOGY MCV 93.0 81.0 - 02 Normal [facility] 99.0 /2012 HEMATOLOGY Hgb 12.1 12.0 - 02 Normal [facility] 16.0 /2012 HEMATOLOGY RBC 3.92 4.20 - 02 LOW [facility] 5.40 /2012 HEMATOLOGY Monocytes # 0.4 0.0 - 0.8 06/30 Normal [facility] /2012 HEMATOLOGY Lymphocytes # 2.1 1.0 - 5.5 06/30 Normal [facility] HEMATOLOGY Basophils # 0.0 0.0 - 0.2 06/30 Normal [facility] HEMATOLOGY Eosinophils # 0.2 0.0 - 0.5 06/30 Normal [facility] HEMATOLOGY Segs-Bands # 2.0 1.5 - 8.1 06/30 Normal [facility] HEMATOLOGY Basophils 0.1 0.0 - 1.0 06/30 Normal [facility] HEMATOLOGY Eosinophils 4.9 0.0 - 4.0 06/30 HI [facility] HEMATOLOGY Monocytes 7.5 2.0 - 12.0 06/30 Normal [facility] HEMATOLOGY Lymphocytes 44.3 20.0 - 06/30 HI [facility] . HEMATOLOGY Segs 43.2 45.0 - 06/30 LOW [facility] . HEMATOLOGY Monocytes # 0.4 0.0 - 0.8 06/23 Normal [facility] HEMATOLOGY Lymphocytes # 1.5 1.0 - 5.5 06/23 Normal [facility] HEMATOLOGY Segs-Bands # 2.6 1.5 - 8.1 06/23 Normal [facility] HEMATOLOGY Basophils 0.1 0.0 - 1.0 06/23 Normal [facility] HEMATOLOGY Eosinophils # 0.2 0.0 - 0.5 06/23 Normal [facility] HEMATOLOGY Basophils # 0.0 0.0 - 0.2 06/23 Normal [facility] HEMATOLOGY Eosinophils 4.2 0.0 - 4.0 06/23 HI [facility] HEMATOLOGY Monocytes 8.8 2.0 - 12.0 06/23 Normal [facility] HEMATOLOGY Lymphocytes 31.1 20.0 - 02 Normal [facility] 40.0 HEMATOLOGY Segs 55.8 45.0 - 02 Normal [facility] 75.0 HEMATOLOGY MCH 30.9 27.0 - 02 Normal [facility] 31.0 /2012 HEMATOLOGY RDW 12.4 11.5 - 02 Normal [facility] 14. /2012 HEMATOLOGY MCHC 33.3 32.0 - 02 Normal [facility] 36.0 /2012 HEMATOLOGY MPV 8.6 7.4 - 10.4 02 Normal [facility] /2012 HEMATOLOGY Platelet 207 133 - 450 06/23 Normal [facility] /2012 HEMATOLOGY MCV 92.9 81.0 - 02 Normal [facility] 99.0 /2012 HEMATOLOGY Hct 41.2 36.0 - 02 Normal [facility] 48.0 /2012 HEMATOLOGY Hgb 13.7 12.0 - 06/23 Normal [facility] 16.0 /2012 HEMATOLOGY WBC 4.7 3.7 - 10.4 06/23 Normal [facility] /2012 HEMATOLOGY RBC 4.43 4.20 - 02 Normal [facility] 5.40 /2012 CHEMISTRY eGFR 99 06/23 NA <sup>2</sup>R [facility] /2012 esult Comment: The eGFR is calculated using the CKD-EPI formula. In most young, healthy individuals the eGFR will be >90 mL/min/1.73m2 . The eGFR declines with age. An eGFR of 60-89 may be normal in some populations, particularly the elderly, for whom the CKD-EPI formula has not been extensively validated. Use of the eGFR is not recommended in the following populations:& lt;br/>
I ndividuals with unstable creatinine concentration s, including patients and those with serious co-morbid conditions.<b r/>
Patie nts with extremes in muscle mass or diet.

The data above are obtained from the National Kidney Disease Education Program (NKDEP) which additionally recommends that when the eGFR is used in patients with extremes of body mass index for purposes of drug dosing, the eGFR should be multiplied by the estimated BMI. CHEMISTRY Glucose Lvl 87 70 - 99 06/23 Normal <sup>5</sup>I R nterpretive Data: Adult reference range values reflect the clinical guidelines
of the [place] [employer]. CHEMISTRY Potassium Lvl 4.0 3.5 - 5.1 06/23 Normal [facility] CHEMISTRY Sodium Lvl 146 135 - 145 06/23 HI [facility] CHEMISTRY Creatinine 0.6 0.5 - 1.4 06/23 Normal [facility] Lvl /2012 CHEMISTRY Chloride Lvl 107 95 - 109 06/23 Normal [facility] CHEMISTRY BUN 17 7 - 22 06/23 Normal [facility] /2012 CHEMISTRY Calcium Lvl 8.8 8.5 - 10.5 06/23 Normal [facility] CHEMISTRY CO2 30 24 - 32 06/23 Normal [facility] CHEMISTRY AGAP 13.0 10.0 - 02 Normal [facility] 20.0 /2012 URINALYSIS UA Leuk Est Trace Negative 06/19 ABN [facility] *ABN* /2012 (06/19/2012 00:01:00) URINALYSIS UA Nitrite Negative Negative 06/19 Normal [facility] (06/19/2012 00:01:00) URINALYSIS UA Protein Negative Negative 06/19 Normal [facility] (06/19/2012 00:01:00) URINALYSIS UA Glucose Negative Negative 06/19 Normal [facility] (06/19/2012 00:01:00) URINALYSIS UA Blood Negative Negative 06/19 Normal [facility] (06/19/2012 00:01:00) URINALYSIS UA 0.2 0.1 - 1.0 06/19 Normal [facility] Urobilinogen URINALYSIS UA Color Yellow Yellow 06/19 [...] Sq Epi Rare /LPF Few 06/19 Normal [facility] (06/19/2012 00:01:00) /2012 URINALYSIS UA WBC 11-20 /HPF None Seen 06/19 ABN [facility] *ABN* /2012 (06/19/2012 00:01:00) Microbiolog Culture: 06/19 [facility] y Urine /2012 CHEMISTRY AGAP 15.0 10.0 - 06/16 Normal [facility] 20.0 CHEMISTRY eGFR 106 06/16 NA <sup>3</sup>R [facility] esult Comment: The eGFR is calculated using the CKD-EPI formula. In most young, healthy individuals the eGFR will be >90 mL/min/1.73m2 . The eGFR declines with age. An eGFR of 60-89 may be normal in some populations, particularly the elderly, for whom the CKD-EPI formula has not been extensively validated. Use of the eGFR is not recommended in the following populations:& lt;br/>
I ndividuals with unstable creatinine concentration s, including patients and those with serious co-morbid conditions.<b r/>
Patie nts with extremes in muscle mass or diet.

The data above are obtained from the National Kidney Disease Education Program (NKDEP) which additionally recommends that when the eGFR is used in patients with extremes of body mass index for purposes of drug dosing, the eGFR should be multiplied by the estimated BMI. CHEMISTRY Creatinine 0.5 0.5 - 1.4 06/16 Normal [facility] Lvl CHEMISTRY BUN 14 7 - 22 06/16 Normal [facility] CHEMISTRY Sodium Lvl 147 135 - 145 06/16 HI [facility] CHEMISTRY Glucose Lvl 78 70 - 99 06/16 Normal <sup>6</sup>I [facility] nterpretive Data: Adult reference range values reflect the clinical guidelines
of the [place] [employer]. CHEMISTRY Potassium Lvl 4.0 3.5 - 5.1 06/16 Normal [facility] CHEMISTRY CO2 30 24 - 32 06/16 Normal [facility] /2012 CHEMISTRY Chloride Lvl 106 95 - 109 06/16 Normal [facility] /2012 CHEMISTRY Calcium Lvl 8.9 8.5 - 10.5 06/16 Normal [facility] HEMATOLOGY Platelet 184 133 - 450 02/04 Normal [facility] /2012 HEMATOLOGY MPV 8.6 7.4 - 10.4 02/ Normal [facility] /2012 HEMATOLOGY MCV 93.2 81.0 - 02/04 Normal [facility] 99.0 /2012 HEMATOLOGY MCHC 33.2 32.0 - 02/04 Normal [facility] 36.0 /2012 HEMATOLOGY MCH 31.0 27.0 - 02/ Normal [facility] 31.0 /2012 HEMATOLOGY RDW 12.4 11.5 - 02/ Normal [facility] 14.5 /2012 HEMATOLOGY WBC 5.0 3.7 - 10.4 02/ Normal [facility] /2012 HEMATOLOGY Hgb 12.1 12.0 - 02/ Normal [facility] 16.0 /2012 HEMATOLOGY RBC 3.90 4.20 - 02/ LOW [facility] 5.40 /2012 HEMATOLOGY Hct 36.4 36.0 - 02 Normal [facility] 48.0 /2012 HEMATOLOGY Lymphocytes 39.6 20.0 - 02/ Normal [facility] 40.0 /2012 HEMATOLOGY Monocytes 10.6 2.0 - 12.0 02/ Normal [facility] HEMATOLOGY Eosinophils 4.6 0.0 - 4.0 02/ HI [facility] /2012 HEMATOLOGY Segs 44.9 45.0 - 02/ LOW [facility] 75.0 /2012 HEMATOLOGY Basophils # 0.0 0.0 - 0.2 02/ Normal [facility] HEMATOLOGY Monocytes # 0.5 0.0 - 0.8 02/ Normal [facility] HEMATOLOGY Eosinophils # 0.2 0.0 - 0.5 02/ Normal [facility] HEMATOLOGY Segs-Bands # 2.3 1.5 - 8.1 02/ Normal [facility] HEMATOLOGY Lymphocytes # 2.0 1.0 - 5.5 02/ Normal [facility] HEMATOLOGY Basophils 0.3 0.0 - 1.0 02/ Normal [facility] STOOL TESTS Occult Bld Negative Negative 06/13 Normal [facility] Stl (06/13/2012 15:00:00) Microbiolog Culture: 05/31 [facility] y Urine Microbiolog Culture: 05/31 [facility] y Urine URINALYSIS UA 0.1 - 1.0 05/31 NA [facility] Urobilinogen URINALYSIS UA RBC 1 0 - 2 05/31 Normal [facility] URINALYSIS UA WBC 112 0 - 5 05/31 HI [facility] URINALYSIS UA Amorph Occasional /HPF None Seen 05/31 NA [facility] Jordyn *NA* /2012 (05/31/2012 05:13:00) URINALYSIS UA Mucus Few /LPF None Seen 05/31 NA [facility] *NA* /2012 (05/31/2012 05:13:00) URINALYSIS UA Bacteria Many /HPF None Seen 05/31 ABN [facility] *ABN* /2012 (05/31/2012 05:13:00) URINALYSIS UA Blood Negative Negative 05/31 Normal [facility] (05/31/2012 05:13:00) URINALYSIS UA Nitrite Positive Negative 05/31 ABN [facility] *ABN* (05/31/2012 05:13:00) URINALYSIS UA Bili Negative Negative 05/31 NA [facility] *NA* (05/31/2012 05:13:00) URINALYSIS UA Sq Epi Occasional /LPF Few 05/31 NA [facility] *NA* /2012 (05/31/2012 05:13:00) URINALYSIS UA Leuk Est Large Negative 05/31 ABN [facility] *ABN* (05/31/2012 05:13:00) URINALYSIS UA Ketones Negative mg/dL Negative 05/31 [facility] *NA* /2012 (05/31/2012 05:13:00) URINALYSIS UA Glucose Negative mg/dL Negative 05/31 NA [facility] *NA* (05/31/2012 05:13:00) URINALYSIS UA Protein Negative mg/dL Negative 05/31 Normal [facility] (05/31/2012 05:13:00) URINALYSIS UA pH 7.0 5.0 - 8.0 05/31 Normal [facility] URINALYSIS UA Spec Grav 1.007 <=1.030 05/31 Normal [facility] URINALYSIS UA Color Light Yellow Yellow 05/31 NA [facility] *NA* /2012 (05/31/2012 05:13:00) URINALYSIS UA Turbidity Slight Clear 05/31 ABN [facility] *ABN* (05/31/2012 05:13:00) CHEMISTRY UIBC 168 110 - 370 05/31 Normal [facility] CHEMISTRY % Satur Fe 30 12 - 57 05/31 Normal [facility] CHEMISTRY Iron 71 30 - 160 05/31 Normal [facility] CHEMISTRY TIBC 239 228 - 428 05/31 Normal [facility] CHEMISTRY Vitamin D 36 18 - 72 05/31 NA [facility] 1,25 (OH)2 Total CHEMISTRY Vitamin D3 36 05/31 NA [facility] 1,25 (OH)2 CHEMISTRY Vitamin D2 <8 05/31 NA <sup>7</sup>R [facility] 1,25 (OH)2 esult Comment:
Vitamin D2, 1,25 (OH)2: Reference ranges are
estab lished for total 1,25-dihydrox y vitamin D.
Values for subcomponents D2 (derived from plant or
fungal sources) and D3 (derived from human or
animal sources) are provided for informational
purposes only. This test(s) was developed and its
perfo rmance characteristi cs have been determined
by [facility], [place],<br/ >[place]. Performance characteristi cs refer to the
abbe tical performance of the test.
Gladys t Performed at:
[facility], [address] [place] [address]
[place] [address] Jeyson Booth MD CHEMISTRY Magnesium Lvl 2.1 1.8 - 2.4 05/31 Normal [facility] CHEMISTRY T4 Free 0.65 0.76 - 05/31 LOW [facility] 1.46 CHEMISTRY Hgb A1C 4.9 05/31 NA <sup>8</sup>I [facility] nterpretive Data: HbA1C% eAG(mg/dL) Interpretatio n
6.0 126 Very good control
6.5 140 Very good control
7.0 154 Good Control
7.5 169 Good Control
8.0 183 Marginal Control, take action to lower
8.5 197 Marginal Control, take action to lower
9.0 212 Poor Control, take action to lower
9.5 226 Poor Control, take action to lower
10. 0 240 Poor Control, take action to lower CHEMISTRY A/G Ratio 1.2 0.7 - 1.6 05/31 Normal [facility] CHEMISTRY B/C Ratio 30 6 - 25 05/31 [facility] CHEMISTRY Globulin 2.9 2.0 - 4.0 05/31 Normal [facility] CHEMISTRY Total Protein 6.5 6.4 - 8.4 05/31 Normal [facility] /2012 CHEMISTRY Bili Total 0.2 0.2 - 1.3 05/31 Normal [facility] CHEMISTRY AST 20 0 - 37 05/31 Normal [facility] CHEMISTRY Alk Phos 60 39 - 136 05/31 Normal [facility] CHEMISTRY Albumin Lvl 3.6 3.5 - 5.0 05/31 Normal [facility] CHEMISTRY ALT 34 0 - 65 05/31 Normal [facility] CHEMISTRY TSH 1.980 0.360 - 05/31 Normal [facility] 3.740 CHEMISTRY Phosphorus 4.7 2.5 - 4.5 05/31 [facility] CHEMISTRY LDL 62 0 - 129 05/31 Normal CHEMISTRY Trig 128 0 - 200 05/31 Normal [facility] CHEMISTRY Chol 135 120 - 200 05/31 Normal [facility] CHEMISTRY HDL 47 >=35 05/31 Normal [facility] CHEMISTRY CHD Risk 2.87 3.90 - 05/31 LOW [facility] 5.80 IMMUNOLOGY Prealbumin 24.5 18.0 - 05/31 Normal [facility] 45.0 Pathology Reports No Data Provided for This Section Diagnostic Reports Report Value Date Source Brain wo contrast CT EXAM: CT BRAIN WITHOUT CONTRAST 02/23/2015 [facility] DATE: Feb 23, 2015 10:06:16 AM INDICATION: Stroke, hydrocephalus COMPARISON: March 31, 2013 [...] who has a ventriculoperitoneal shunt. Brain wo contrast CT EXAM: CT BRAIN WITHOUT CONTRAST 03/31/2013 [facility] DATE: Mar 31, 2013 12:56:00 PM INDICATION: Hydrocephalus COMPARISON: July 20, 2009 TECHNIQUE: [...] than on the patient's previous exam indicating that the ventriculoperitoneal shunt catheter is functional. 3. Interval cranioplasty on the right. 4. No new supratentorial parenchymal abnormality. 5. Interval placement of a cochlear implant on the left. Consultation Notes No Data Provided for This Section Discharge Summaries No Data Provided for This Section History and Physicals No Data Provided for This Section Vital Signs Vital Sign Value Date Comments Source Systolic (mm Hg) 130 11/25/2018 [facility] Diastolic (mm Hg) 85 11/25/2018 [facility] Respitory Rate 18 11/25/2018 [facility] Heart Rate 67 11/25/2018 [facility] Weight 59.091 08/28/2018 [facility] Heart Rate 68 08/28/2018 [facility] Respitory Rate 18 08/28/2018 [facility] Systolic (mm Hg) 137 08/28/2018 [facility] Diastolic (mm Hg) 81 08/28/2018 [facility] Weight 59.091 07/09/2018 [facility] Systolic (mm Hg) 183 07/09/2018 [facility] Diastolic (mm Hg) 99 07/09/2018 [facility] Heart Rate 55 07/09/2018 [facility] Height 149.86 cm 07/09/2018 MH [facility] BMI Calculated 26.31 07/09/2018 MH [facility] Respitory Rate 18 07/09/2018 [facility] Height 149.86 cm 04/29/2018 MH [facility] BMI Calculated 26.31 04/29/2018 MH [facility] Weight 59.091 04/29/2018 MH [facility] Systolic (mm Hg) 129 04/29/2018 [facility] Diastolic (mm Hg) 70 04/29/2018 MH [facility] Heart Rate 63 04/29/2018 MH [facility] Respitory Rate 20 04/29/2018 MH [facility] Weight 59.091 04/07/2018 [facility] BMI Calculated 26.31 04/07/2018 MH [facility] Height 149.86 cm 04/07/2018 MH [facility] Heart Rate 54 04/07/2018 MH [facility] Respitory Rate 18 04/07/2018 MH [facility] Systolic (mm Hg) 167 04/07/2018 [facility] Diastolic (mm Hg) 76 04/07/2018 [facility] BMI Calculated 26.31 12/31/2017 MH [facility] Weight 59.091 12/31/2017 MH [facility] Height 149.86 cm 12/31/2017 MH [facility] Respitory Rate 20 12/31/2017 [facility] Heart [...] 10/01/2017 [facility] Systolic (mm Hg) 134 10/01/2017 MH [facility] Diastolic (mm Hg) 79 10/01/2017 [facility] Heart Rate 65 10/01/2017 [facility] Respitory Rate 16 10/01/2017 [facility] Respitory Rate 20 09/24/2017 [facility] Heart Rate 63 09/24/2017 [facility] Weight 59.545 09/24/2017 [facility] BMI Calculated 26.51 09/24/2017 [facility] Height 149.86 cm 09/24/2017 [facility] Systolic (mm Hg) 113 09/24/2017 MH [facility] Diastolic (mm Hg) 73 09/24/2017 [facility] BMI Calculated 27.12 08/06/2017 [facility] Weight 60.909 08/06/2017 [facility] Height 149.86 cm 08/06/2017 [facility] Respitory Rate 18 08/06/2017 [facility] Heart Rate 77 08/06/2017 [facility] Systolic (mm Hg) 146 08/06/2017 MH [facility] Diastolic (mm Hg) 86 08/06/2017 [facility] Height 149.86 cm 07/02/2017 [facility] Weight 59.091 07/02/2017 [facility] BMI Calculated 26.31 07/02/2017 [facility] Heart Rate 71 07/02/2017 [facility] Systolic (mm Hg) 181 07/02/2017 MH [facility] Diastolic (mm Hg) 79 07/02/2017 [facility] Respitory Rate 20 07/02/2017 [facility] Weight 59.091 2017 [facility] Respitory Rate 18 2017 [facility] Heart Rate 76 2017 MH [facility] Systolic (mm Hg) 156 2017 MH [facility] Diastolic (mm Hg) 86 2017 [facility] Height 149.86 cm 05/01/2017 [facility] BMI Calculated 25.3 05/01/2017 [facility] Weight 56.818 05/01/2017 [facility] Systolic (mm Hg) 136 05/01/2017 MH [facility] Diastolic (mm Hg) 85 05/01/2017 [facility] Heart Rate 67 05/01/2017 [facility] Respitory Rate 20 05/01/2017 [facility] Weight 56.818 03/19/2017 [facility] BMI Calculated 22.19 03/19/2017 [facility] Heart Rate 60 03/19/2017 [facility] Respitory Rate 18 03/19/2017 [facility] Height 160.02 cm 03/19/2017 [facility] Systolic (mm Hg) 120 03/19/2017 [facility] Diastolic (mm Hg) 78 03/19/2017 [facility] [...] 68 01/31/2017 [facility] Respitory Rate 20 01/31/2017 [facility] Systolic (mm Hg) 132 01/31/2017 [facility] Diastolic (mm Hg) 81 01/31/2017 [facility] Weight 56.818 12/11/2016 [facility] Heart Rate 55 12/11/2016 [facility] Respitory Rate 16 12/11/2016 [facility] Systolic (mm Hg) 116 12/11/2016 [facility] Weight 56.818 11/21/2016 [facility] BMI Calculated 25.3 11/21/2016 [facility] Height 149.86 cm 11/21/2016 MH [facility] Systolic (mm Hg) 127 11/02/2016 MH [facility] Diastolic (mm Hg) 82 11/02/2016 [facility] Weight 55 11/02/2016 [facility] BMI Calculated 24.49 11/02/2016 [facility] Height 149.86 cm 11/02/2016 [facility] Heart Rate 61 11/02/2016 [facility] Respitory Rate 18 11/02/2016 [facility] Systolic (mm Hg) 104 09/27/2016 MH [facility] Diastolic (mm Hg) 58 09/27/2016 [facility] Respitory Rate 18 09/27/2016 [facility] Heart Rate 73 09/27/2016 MH [facility] Height 149.86 cm 08/15/2016 [facility] Heart Rate 67 08/14/2016 [facility] Respitory Rate 20 08/14/2016 MH [facility] Height 149.86 cm 08/14/2016 [facility] Weight [...] 20 06/12/2016 [facility] Heart Rate 63 06/12/2016 [facility] Systolic (mm Hg) 109 06/12/2016 [facility] Diastolic (mm Hg) 60 06/12/2016 [facility] Respitory Rate 20 05/01/2016 [facility] BMI Calculated 24.69 05/01/2016 [facility] Weight 55.455 05/01/2016 [facility] Height 149.86 cm 05/01/2016 [facility] Heart Rate 70 05/01/2016 MH [facility] Systolic (mm Hg) 132 05/01/2016 MH [facility] Diastolic (mm Hg) 71 05/01/2016 [facility] [...] 12/27/2015 [facility] Systolic (mm Hg) 108 12/27/2015 MH [facility] Diastolic (mm Hg) 62 12/27/2015 [facility] [...] 55.455 04/19/2015 [facility] Respitory Rate 18 04/19/2015 MH [facility] Systolic (mm Hg) 109 04/19/2015 MH [facility] Diastolic (mm Hg) 64 04/19/2015 [facility] Heart Rate 61 04/19/2015 [facility] Weight 55.909 02/15/2015 [facility] BMI Calculated 24.89 02/15/2015 [facility] Height 149.86 cm 02/15/2015 [facility] Heart Rate 61 02/15/2015 [facility] Respitory Rate 18 02/15/2015 [facility] Systolic (mm Hg) 111 02/15/2015 MH [facility] Diastolic (mm Hg) 66 02/15/2015 [facility] BMI Calculated 25.3 02/07/2015 [facility] Weight 56.818 02/07/2015 [facility] Height 149.86 cm 02/07/2015 [facility] Respitory Rate 20 02/07/2015 [facility] Heart Rate 80 02/07/2015 [facility] Systolic (mm Hg) 116 02/07/2015 [facility] Diastolic (mm Hg) 68 02/07/2015 [facility] [...] 08/05/2012 [facility] Systolic (mm Hg) 93 07/02/2012 MH [facility] Diastolic (mm Hg) 45 07/02/2012 [facility] [...] 04/15/2012 [facility] Systolic (mm Hg) 106 04/15/2012 [facility] Diastolic (mm Hg) 62 04/15/2012 [facility] Heart Rate 69 04/15/2012 [facility] Respitory Rate 12 04/15/2012 [facility] Weight 62.727 01/29/2012 [facility] Height 149.86 cm 01/29/2012 [facility] Respitory Rate 18 01/29/2012 [facility] Heart Rate 74 01/29/2012 [facility] Diastolic (mm Hg) 66 01/29/2012 [facility] [...] Rate 18 10/16/2011 [facility] Weight 63.636 10/16/2011 MH [facility] Height 149.86 cm 10/16/2011 [facility] Height [...] 58 07/03/2011 [facility] Respitory Rate 18 07/03/2011 [facility] Systolic (mm Hg) 104 07/03/2011 [facility] Weight 65.455 05/22/2011 [facility] Height 149.86 cm 05/22/2011 MH [facility] Systolic (mm Hg) 102 05/22/2011 MH [facility] Heart Rate 72 05/22/2011 MH [facility] Diastolic (mm Hg) 56 05/22/2011 MH [facility] Respitory Rate 18 05/22/2011 [facility] Heart Rate 79.0 04/03/2011 MH [facility] [...] Number For Provider Date Date Visit Outpatient [id number] 500 [facility] 05/22 Active [facility] 6 UNITS IN HAYDE- 4 WKS [facility] Outpatient [id number] 3-4 JYOTI 07/03 Active [facility] 7 MONTH [facility] [id number] 500 JYOTI 08/20 08/20 Active [facility] 8 UNITS HAYDE- /2011 TIERRE Outpatient [id number] NEUROGEN BARBARA 08/27 08/27 Active [facility] 8 IC CHANG BLADDER Outpatient [id number] [facility] 09/02 Active [facility] 2 Outpatient [id number] FU [facility] 10/15 Active [facility] 9 HAYDE- TIERREZ Outpatient [id number] 500 JYOTI 11/15 Active [facility] 0 UNITS HAYDE- TIERRE Outpatient [id number] F/U [facility] 01/28 Active [facility] 1 HAYDE- TIERREZ Outpatient [id number] 500 JYOTI 02/18 Active [facility] 2 UNITS HAYDE- /2011 [facility] Outpatient [id number] F/U JYOTI 04/15 Active [facility] 3 HAYDE- /2011 [facility] Outpatient [id number] 500 JYOTI 05/20 Active [facility] 4 UNITS HAYDE- /2012 [facility] [place] [id number] HERON 05/30 07/02 Discharg [facility] 5 RODRIGUEZ /2012 ed Outpatient [id number] F/U JYOTI 08/05 Active [facility] 6 HAYDE- [facility] Outpatient [id number] 500 JYOTI 08/19 Active [facility] 8 UNITS HAYDE- [facility] Outpatient [id number] F/U JYOTI 10/14 Active [facility] 7 HAYDE- [facility] Outpatient [id number] 500 JYOTI 11/28 Active [facility] 9 UNITS HAYDE- [facility] Outpatient [id number] SLEEPINE SHAN 01/09 Active [facility] 2 SS TALLAVAJHUL A Outpatient [id number] F/U JYOTI 01/27 Active [facility] 0 HAYDE- /2012 [facility] Outpatient [id number] 500 JYOTI 02/17 Active [facility] 1 UNITS HAYDE- [facility] Outpatient [id number] SLEEP SHAN 03/31 Active [facility] 5 APNEA TALLAVAJHUL F/U A Outpatient [id number] SLEEP SHAN 05/11 Active [facility] 6 APNEA TALLAVAHUL F/U A Outpatient [id number] F/U JYOTI 06/02 Active [facility] 4 HAYDE- [facility] Outpatient [id number] 500 UNIT JYOTI 06/09 Active [facility] 3 HAYDE- [facility] Outpatient [id number] _MAPID:E Heron 08/11 08/12 [facility] [place] 8 [id number] NCNTRRFV Hayde-Gu /2013 [facility] [id number] [facility] Outpatient [id number] Heron 09/01 09/02 [facility] [place] 9 [place]-Gu /2013 [facility] Outpatient [id number] Heron 12/01 12/02 [facility] [place] 0 Hayde-Gu /2013 [facility] Outpatient [id number] Heron 12/22 12/23 [facility] [place] 2 [facility]-Gu /2013 [facility] Tots [id number] Heron 12/29 01/28 [facility] [place] [facility] 0 [facility]-Gu /2013 [facility] Tots [id number] Heron 02/02 03/04 [facility] [place] [id number] Heron 03/04 04/03 [facility] [place] [facility] 2 [facility]-Gu /2013 [facility] Outpatient [id number] Heron 05/19 05/20 [facility] [place] 6 [facility] [id number] Heron 07/26 07/27 [facility] [place] 9 [facility]-Gu /2014 [facility] Outpatient [id number] Heron 08/17 08/18 [facility] [place] 0 [place]-Gu /2014 [facility] Outpatient [id number] Heron 11/16 11/17 [facility] [place] 1 [facility]-Gu /2014 [facility] Outpatient [id number] Shan 02/07 02/08 [facility] [place] [facility] Outpatient [id number] Heron 02/15 02/16 [facility] 2 [facility] /2014 [place] [facility] Outpatient [id number] Heron 02/23 02/24 [facility] [id number] Shan 04/19 04/20 [facility] 4 [facility] /2014 [place] [facility] Outpatient [id number] Heron 05/31 06/01 [facility] [id number] Heron 08/29 08/30 [facility] 8 [facility] Out[facility] [id number] Shan 12/20 12/21 [facility] 0 [facility] /2015 [facility] Outpatient [id number] Heron 12/26 12/27 [facility] 9 [facility] [id number] Shan 01/10 01/10 [facility] 2 [facility] /2015 [place] [facility] Outpatient [id number] Shan 02/21 02/21 [facility] 3 [facility] /2015 [place] [facility] Outpatient [id number] Shan 04/11 04/12 [facility] 4 [facility] [id number] Heron 05/01 05/02 [facility] [place] [id number] Shan 05/17 06/16 [facility] 3 [facility] [id number] Shan 06/12 06/13 [facility] 5 [facility] [id number] Shan 06/26 07/26 [facility] 4 [facility] [id number] Shan 08/08 08/09 [facility] 7 [facility] [id number] Heron 08/14 08/15 [facility] 6 [facility] [id number] Naga 09/27 09/28 [facility] [id number] Naga 11[facility]02 11/03 [facility] [id number] Naga 11/21 11/22 [facility] [id number] Heron 12/11 12/12 [facility] 0 [facility]2016 [facility] [id number] Naga 01/31 02/01 [facility] 5 [facility] [id number] Shan 02/06 02/07 [facility] 8 [facility] [id number] Heron 03/19 03/20 [facility] 4 [facility] [id number] Naga 05/01 05/02 [facility] 7 [facility] [id number] Heron 06/18 06/19 [facility] 8 [facility] /2017 [facility] [id number] Naga 07/02 07/03 [facility] 9 [facility] [id number] Shan 08/06 08/07 [facility] 0 [facility] [id number] Heron 09/24 09/25 [facility] 1 [facility] /2017 [facility] Outpatient [id number] Naga 10/01 10/02 [facility] 2 Robison [facility] Outpatient [id number] Heron 12/31 01/01 [facility] 3 Hayde-Gu [facility] TR Outpatient [id number] Naga 04/07 04/08 [facility] Psychiatri 5 Robison cs/Psychot herapy ([facility]) TR Outpatient [id number] Heron 04/29 04/30 [facility] Spasticity 6 Hayde-Gu [facility] ([facility]) [facility] Outpatient [id number] Naga 07/09 07/10 [facility] 7 Robison [facility] TR Outpatient [id number] Heron 08/28 08/29 [facility] Spasticity 8 Hayde-Gu [facility] ([facility]) TR Outpatient [id number] Heron 11/25 11/26 MH [facility] Spasticity 9 Hayde-Gu [facility] ([facility]) Outpatient [id number] 500/40 JYOTI Cancel [facility] 3 HAYDE- [facility] Procedures Procedure Code Date Perfomer Comments [place] [address] 11/25/2018 [facility] muscle(s); muscle(s) innervated by facial nerve, unilateral (eg, for blepharospasm, hemifacial spasm) [place] [address] 11/25/2018 [facility] one extremity; 5 or more muscles [place] 65829 11/25/2018 [facility] muscle(s); neck muscle(s), excluding muscles of the larynx, unilateral (eg, for cervical dystonia, spasmodic torticollis) [place] 40[address] 08/28/2018 [facility] muscle(s); neck muscle(s), excluding muscles of the larynx, unilateral (eg, for cervical dystonia, spasmodic torticollis) [place]mod[place]ervation of 81729 08/28/2018 [facility] one extremity; 5 or [place] [address] 08/28/2018 [facility] muscle(s); muscle(s) innervated by facial nerve, unilateral (eg, for blepharospasm, hemifacial spasm) [place] [address] 04/29/2018 [facility] muscle(s); muscle(s) innervated by facial nerve, unilateral (eg, for blepharospasm, hemifacial spasm) [place] [address] 04/29/2018 [facility] muscle(s); neck muscle(s), excluding muscles of the larynx, unilateral (eg, for cervical dystonia, spasmodic torticollis) [place] 87466 04/29/2018 [facility] one extremity; 5 [place] [address] 04/29/2018 MH [facility] one extremity; each additional extremity, 1-4 muscle(s) (List separately in addition to code for primary procedure) [place] 65858 12/31/2017 MH [facility] muscle(s); neck muscle(s), excluding muscles of the larynx, unilateral (eg, for cervical dystonia, spasmodic torticollis) [place] 53724 12/31/2017 MH [facility] one extremity; each additional extremity, 1-4 muscle(s) (List separately in addition to code for primary procedure) [place] 26485 12/31/2017 MH [facility] one extremity; 5 or [place] 68747 12/31/2017 MH [facility] muscle(s); muscle(s) innervated by facial nerve, unilateral (eg, for blepharospasm, hemifacial spasm) [place] 67852 09/24/2017 MH [facility] muscle(s); neck muscle(s), excluding muscles of the larynx, unilateral (eg, for cervical dystonia, spasmodic torticollis) [place] [address] 09/24/2017 MH [facility] muscle(s); muscle(s) innervated by facial nerve, unilateral (eg, for blepharospasm, hemifacial spasm) [place] 02042 09/24/2017 MH [facility] one extremity; 5 or [place] [address]84[address] 09/24/2017 MH [facility] one extremity; each additional extremity, 1-4 muscle(s) (List separately in addition to code for primary procedure) [place] [address] 2017 MH [facility] muscle(s); neck muscle(s), excluding muscles of the larynx, unilateral (eg, for cervical dystonia, spasmodic torticollis) [place] 51414 2017 MH [facility] one extremity; 5 or [place] 31311 2017 MH [facility] muscle(s); muscle(s) innervated by facial nerve, unilateral (eg, for blepharospasm, hemifacial spasm) [place] 564[address] 03/19/2017 MH [facility] muscle(s); neck muscle(s), excluding muscles of the larynx, unilateral (eg, for cervical dystonia, spasmodic torticollis) [place] 05420 03/19/2017 MH [facility] muscle(s); muscle(s) innervated by facial nerve, unilateral (eg, for blepharospasm, hemifacial spasm) [place] 24625 03/19/2017 [facility] one extremity; 5 or more muscles [place] 17385 12/11/2016 MH [facility] one extremity; 5 [place] [address] 12/11/2016 [facility] muscle(s); neck muscle(s), excluding muscles of the larynx, unilateral (eg, for cervical dystonia, spasmodic torticollis) [place] 83091 08/14/2016 [facility] muscle(s); neck muscle(s), excluding muscles of the larynx, unilateral (eg, for cervical dystonia, spasmodic torticollis) [place] 62528 08/14/2016 [facility] one extremity; 5 or [place] 72045 05/01/2016 MH [facility] one extremity; 5 [place] [address] 05/01/2016 [facility] muscle(s); neck muscle(s), excluding muscles of the larynx, unilateral (eg, for cervical dystonia, spasmodic torticollis) [place]ervation of 98943 08/30/2015 [facility] one extremity; 5 or [place] 21281 05/31/2015 [facility] one extremity; 5 or more muscles Femur X-ray [id number] [facility] Shunt construction [id number] [facility] Chemodenervation [id number] [facility] Femur X-ray [id number] [facility] Shunt construction [id number] [facility] Assessment and Plan No Data Provided for This Section Plan of Care No Data Provided for This Section Social History Social History Date Source Social History TypeResponse 09/27/2016 [facility] Substance Abuse Use: None. Sexual Sexually active: No. Exercise 1 Employment/School Status: Retired. Previous employment/school: Education. Highest education level: University degree(s).2 Alcohol Current, Type Wine. Frequency: 1-2 times per year. Previous treatment: None. Smoking Status Never smoker; Type: Cigarettes; Ready to change: No; Concerns about tobacco use in household: No; Exposure to Tobacco Smoke None; Cigarette Smoking Last 365 Days No; Reg Smoking Cessation Counseling No entered on: 11/25/18 1P.T. sessions, Aquatic therapy and Project [id number] in home setting; - spouse named Galo Family History No Data Provided for This Section Advance Directives No Data Provided for This Section Functional Status No Data Provided for This Section
--- OUTSIDE RECORDS SUMMARY | 2018-12-22 09:35 | XMS REPORT | Summary of Care ---
:1950 Author Organization [facility] Address [address] [place] [id number] Encounter HQ Buck_sarika(FIN) [id number] Date(s): 04/29/18 - 04/29/[address] [address] [phone] Encounter Diagnosis Other muscle spasm (Final) - 05/02/18 Spastic hemiplegia affecting left nondominant side (Final) - Clonic hemifacial spasm, left (Final) - Spasmodic torticollis (Final) - Discharge Disposition: Home or Self Care Attending Physician: Shahana Grove MD Referring Physician: Shahana Grove MD Vital Signs Most recent to oldest [Reference Range]: 1 Height 149.86 cm (04/29/18 10:02 AM) Blood Pressure [90-140/60-90 mmHg] 129/70 mmHg (04/29/18 10:02 AM) Respiratory Rate [14-20 BRMIN] 20 BRMIN (04/29/18 10:02 AM) Peripheral Pulse Rate [60-100 bpm] 63 bpm (04/29/18 10:02 AM) Weight 59.091 kg (04/29/18 10:02 AM) Body Mass Index 26.31 m2 (04/29/18 10:02 AM) Problem List Condition Effective Dates Status Health Status Informant Clostridium difficile(Confirmed)1, 06/03/09 - 07/15/09 Resolved 2 Hay fever(Confirmed) Resolved Left spastic hemiparesis(Confirmed) Active Depression(Confirmed) Active Numbness(Confirmed) Active SHUKRI - Obstructive sleep Resolved apnea(Confirmed) Sinusitis(Confirmed) Resolved Spasm of muscle(Confirmed) Active 1CTA 07/15/200947183Wyvwlij added by Discern Expert. Allergies, Adverse Reactions, Alerts No Known Medication Allergies Medications INCObotulinumtoxinA 400 unit, Route: IM, ONCALL, Dosing Weight 59.545, kg, Start date: 04/29/18 18: 00:00 RATING EXAMINER Start Date: 04/29/18 Stop Date: 04/29/18 Status: Completed Results No data available for this section Immunizations Given and Recorded Vaccine Date Status Refusal Reason pneumococcal 23-valent vaccine 02/07/09 Given Procedures Procedure Date Related Diagnosis Body Site Status Chemodenervation of muscle(s); 04/29/18 Completed muscle(s) innervated by facial nerve, unilateral (eg, for blepharospasm, hemifacial spasm) Chemodenervation of muscle(s); neck 04/29/18 Completed muscle(s), excluding muscles of the larynx, unilateral (eg, for cervical dystonia, spasmodic torticollis) Chemodenervation of one extremity; 5 04/29/18 Completed or more muscles Chemodenervation of one extremity; 04/29/18 Completed each additional extremity, 1-4 muscle(s) (List separately in addition to code for primary procedure) Chemodenervation Completed Femur X-ray Completed Shunt construction Completed Social History Social History Type Response Substance Abuse Use: None. Sexual Sexually active: [...] Reg Smoking Cessation Counseling No entered on: 08/28/18 1P.T. sessions, Aquatic therapy and Project [id number] in home setting; - spouse named Galo Assessment and Plan No data available for this section
--- OUTSIDE RECORDS SUMMARY | 2018-12-22 09:36 | XMS REPORT | CCD ---
:1950 Author Organization [facility] Team Providers Name Role Phone Marlo [...]
--- OUTSIDE RECORDS SUMMARY | 2018-12-22 09:36 | XMS REPORT | CCD ---
:1950 Author Organization [facility] Team Providers Name Role Phone NicoleJustin Consulting [...]
--- OUTSIDE RECORDS SUMMARY | 2018-12-22 09:36 | XMS REPORT | CCD ---
:1950 Author Organization [facility] Team Providers Name Role Phone Shahana Grove Referring Provider Shane Mendieta Consulting Provider [id number] Alisha Deluna Consulting Provider Unavailable Carli Palmer Consulting Provider Unavailable [employer], Login Consulting Provider Unavailable Karen Gloria Consulting Provider [phone] Dolores Millard Consulting Provider Unavailable SYSTEM, SYSTEM [...]
--- OUTSIDE RECORDS SUMMARY | 2018-12-22 09:36 | XMS REPORT | CCD ---
:1950 Author Organization [facility] Team Providers Name Role Phone Sahhana Grove Referring Provider Allergies, Adverse Reactions, Alerts [...]
--- OUTSIDE RECORDS SUMMARY | 2018-12-22 09:36 | XMS REPORT | CCD ---
:1950 Author Organization [facility] Team Providers Name Role Phone Shahana [...]
--- OUTSIDE RECORDS SUMMARY | 2018-12-22 09:36 | XMS REPORT | CCD ---
:1950 Author Organization [facility] Team Providers Name Role Phone Shahana [...]
--- OUTSIDE RECORDS SUMMARY | 2018-12-22 09:36 | XMS REPORT | Summary of Care ---
:1950 Author Organization [facility] Address [address] [place] [id number] Encounter HQ Buck_sarika(FIN) [id number] Date(s): 11/25/18 - 11/25/[address] [address]- [phone] Discharge Disposition: Home or Self Care Attending Physician: Shahana Grove MD Referring Physician: Shahana Grove MD Vital Signs Most recent to oldest [Reference Range]: 1 Blood Pressure [90-140/60-90 mmHg] 130/85 mmHg (11/25/18 10:31 AM) Respiratory Rate [14-20 BRMIN] 18 BRMIN (11/25/18 10:31 AM) Peripheral Pulse Rate [60-100 bpm] 67 bpm (11/25/18 10:31 AM) Problem List Condition Effective Dates Status Health Status Informant Clostridium difficile(Confirmed)1, 06/03/09 - 07/15/09 Resolved 2 Hay fever(Confirmed) Resolved Left spastic hemiparesis(Confirmed) Active Depression(Confirmed) Active Numbness(Confirmed) Active SHUKRI - Obstructive sleep Resolved apnea(Confirmed) Sinusitis(Confirmed) Resolved Spasm of muscle(Confirmed) Active 1CTA 07/15/200988346Fmpcnos added by Discern Expert. Allergies, Adverse Reactions, Alerts No Known Medication Allergies Medications INCObotulinumtoxinA 400 unit, Route: IM, ONCALL, Dosing Weight 59.091, kg, Start date: 11/25/18 13: 00:00 CDT Start Date: 11/25/18 Stop Date: 11/25/18 Status: Completedolmesartan 20 mg oral tablet 20 mg=1 tab, PO, Daily Start Date: 11/25/18 Status: Ordered Results No data available for this section Immunizations Given and Recorded Vaccine Date Status Refusal Reason pneumococcal 23-valent vaccine 02/07/09 Given Procedures Procedure Date Related Diagnosis Body Site Status Chemodenervation of muscle(s); 11/25/18 Completed muscle(s) innervated by facial nerve, unilateral (eg, for blepharospasm, hemifacial spasm) Chemodenervation of muscle(s); neck 11/25/18 Completed muscle(s), excluding muscles of the larynx, unilateral (eg, for cervical dystonia, spasmodic torticollis) Chemodenervation of one extremity; 5 or 11/25/18 Completed more muscles Chemodenervation Completed Femur X-ray Completed Shunt construction [...] 11/25/18 1P.T. sessions, Aquatic therapy and Project [email or web address] in home setting; - spouse named Galo Assessment and Plan No data available for this section
--- OUTSIDE RECORDS SUMMARY | 2018-12-22 09:37 | XMS REPORT | CCD ---
:1950 Author Organization [facility] Team Providers Name Role Phone Shahana Grove [...]
--- OUTSIDE RECORDS SUMMARY | 2018-12-22 09:37 | XMS REPORT | CCD ---
:1950 Author Organization [facility] Team Providers Name Role Phone Shahana Grove [...]
--- OUTSIDE RECORDS SUMMARY | 2018-12-22 09:37 | XMS REPORT | CCD ---
:1950 Author Organization [facility] Team Providers Name Role Phone Marlo Carter [...]
--- OUTSIDE RECORDS SUMMARY | 2018-12-22 09:37 | XMS REPORT | CCD ---
:1950 Author Organization [facility] Team Providers Name Role Phone Shahana Frias Natasha Consulting Provider Allergies, Adverse Reactions, Alerts Substance Reaction Status NKDA Active Problem List Condition Effective Dates Status Clostridium difficile1, 2 06/03/2009 - 07/15/2009 Resolved Fracture Resolved Hay fever Resolved Numbness Resolved Sinusitis Resolved 1CTA 07/15/200973204Gvaqpch added by Discern Expert. Medications Medication Instructions Start Date End Date Status Actonel 30 mg, 1 tab, 06/02/2012 06/02/2012 Deleted Route: PO, Drug form: TAB, Q7D, Start date: 06/02/12 13:00:00, Duration: 30 day, Stop date: 06/30/12 6:30:00 [place] 5/325 oral tablet 1 tab, Route: PO, 05/30/2012 05/30/2012 Discontinued Drug Form: TAB, Dosing Weight 64.545, kg, Q4H, PRN Pain, Start date: 05/30/12 11:49:00, Duration: 30 day, Stop date: 06/29/12 11:48:00 ZICONOTIDE 100MCG/ML ZICONOTIDE 06/03/2012 07/02/2012 Discontinued 100MCG/ML, 2.8, Drug form: MISC, Route: INJ, Continuous, 06/03/12 16:30:00, Duration: 30 day, Stop date: 07/03/12 16:29:00 [place] 5/325 oral tablet 1 tab, Route: PO, [...] Duration: 30 day, Stop date: 07/29/12 16:13:00 [place] 5/325 oral tablet 1 tab, PO, BID, 60 06/30/2012 Ordered tab, 2, 2, Substitution Allowed, Maintenance, TAB benzocaine-docusate 20 1 appl, [place], Daily, 06/30/2012 Ordered mg-283 mg rectal enema [...] 07/02/2012 Discontinued Route: PO, Drug form: TAB, [id number], Dosing Weight 65.54, kg, Start date: 06/26/12 [...] Allowed, TAB Enemeez Plus 1 appl, Route: [place], 05/30/2012 07/02/2012 Discontinued Drug Form: PATRICIA, Dosing [...] mg, 1 supp, 05/30/2012 07/02/2012 Discontinued Route: [place], Drug form: SUPP, Daily, Dosing Weight 65.54, [...] mg, 1 tab, PO, 06/30/2012 Ordered tablet [id number], 7 tab, Substitution Allowed, TAB fexofenadine 60 [...] values reflect the clinical guidelines of the [place] [employer].5Interpretive Data: Adult reference range values reflect the clinical guidelines of the [place] [employer].6Interpretive Data: Adult reference range values reflect the clinical guidelines of the [place] [employer].7Result Comment: Vitamin D2, 1,25 (OH)2: Reference ranges are established for total 1,25-dihydroxy vitamin D. Values for subcomponents D2 (derived from plant or fungal sources) and D3 (derived from human or animal sources) are provided for informational purposes only. This test(s) was developed and its performance characteristics have been determined by [employer], [place], [place]. Performance characteristics refer to the analytical performance of the test. Test Performed at: [facility], [address] [place] [id number] Jeyson [id number] Data: HbA1C% eAG( mg/dL) Interpretation 6.0 126 [...]
--- OUTSIDE RECORDS SUMMARY | 2018-12-22 09:37 | XMS REPORT | CCD ---
:1950 Author Organization [facility] Team Providers Name Role Phone Shahana Grove Referring Provider Allergies, Adverse Reactions, Alerts Substance Reaction Status NKDA Active Problem List Condition Effective Dates Status Clostridium difficile1, 2 06/03/2009 - 07/15/2009 Resolved Fracture Resolved Hay fever Resolved Numbness Resolved Sinusitis Resolved 1CTA 07/15/200953760Gqiyamj added by Discern Expert. Medications Medication Instructions [...]
--- OUTSIDE RECORDS SUMMARY | 2018-12-22 09:37 | XMS REPORT | CCD ---
:1950 Author Organization [facility] Team Providers Name Role Phone Shahana [...]
--- OUTSIDE RECORDS SUMMARY | 2018-12-22 09:37 | XMS REPORT | CCD ---
:1950 Author Organization [facility] Team Providers Name Role Phone Shahana [...]
--- OUTSIDE RECORDS SUMMARY | 2018-12-22 09:38 | XMS REPORT | CCD ---
:1950 Author Organization [facility] Team Providers Name Role Phone Shahana Grove Referring Provider Allergies, Adverse Reactions, Alerts Substance Reaction Status NKDA Active Problem List Condition Effective Dates Status Clostridium difficile1, 2 06/03/2009 - 07/15/2009 Resolved Fracture Resolved Hay fever Resolved Numbness Resolved Sinusitis Resolved 1CTA 07/15/200934405Jvfvjks added by Discern Expert. Medications Medication Instructions [...]
--- OUTSIDE RECORDS SUMMARY | 2018-12-22 09:38 | XMS REPORT | CCD ---
:1950 Author Organization [facility] Team Providers Name Role Phone Shahana Grove Referring Provider Allergies, Adverse Reactions, Alerts Substance Reaction Status NKDA Active Problem List Condition Effective Dates Status Clostridium difficile1, 2 06/03/2009 - 07/15/2009 Resolved Fracture Resolved Hay fever Resolved Numbness Resolved Sinusitis Resolved 1CTA 07/15/200994425Bqtxnbr added by Discern Expert. Medications Medication Instructions [...]
--- OUTSIDE RECORDS SUMMARY | 2018-12-22 09:38 | XMS REPORT | CCD ---
:1950 Author Organization [facility] Team Providers Name Role Phone Shahana Grove Referring Provider Allergies, Adverse Reactions, Alerts Substance Reaction Status NKDA Active Problem List Condition Effective Dates Status Clostridium difficile1, 2 06/03/2009 - 07/15/2009 Resolved Fracture Resolved Hay fever Resolved Numbness Resolved Sinusitis Resolved 1CTA 07/15/200982746Sfrzxih added by Discern Expert. Medications Medication Instructions [...]
--- OUTSIDE RECORDS SUMMARY | 2018-12-22 09:38 | XMS REPORT | CCD ---
:1950 Author Organization [facility] Team Providers Name Role Phone Shahana Grove Referring Provider Allergies, Adverse Reactions, Alerts Substance Reaction Status NKDA Active Problem List Condition Effective Dates Status Clostridium difficile1, 2 06/03/2009 - 07/15/2009 Resolved Fracture Resolved Hay fever Resolved Numbness Resolved Sinusitis Resolved 1CTA 07/15/200921544Dhfpldr added by Discern Expert. Medications Medication Instructions [...]
--- OUTSIDE RECORDS SUMMARY | 2018-12-22 09:38 | XMS REPORT | CCD ---
:1950 Author Organization [facility] Team Providers Name Role Phone Celeste Lovett Referring Provider Allergies, Adverse Reactions, Alerts Substance Reaction Status NKDA Active Problem List Condition Effective Dates Status Clostridium difficile1, 2 06/03/2009 - 07/15/2009 Resolved Fracture Resolved Hay fever Resolved Numbness Resolved Sinusitis Resolved 1CTA 07/15/200910434Armdlfx added by Discern Expert. Medications Medication Instructions [...]
--- OUTSIDE RECORDS SUMMARY | 2018-12-22 09:38 | XMS REPORT | CCD ---
:1950 Author Organization [facility] Team Providers Name Role Phone Shahana Grove Referring Provider Allergies, Adverse Reactions, Alerts Substance Reaction Status NKDA Active Problem List Condition Effective Dates Status Clostridium difficile1, 2 06/03/2009 - 07/15/2009 Resolved Fracture Resolved Hay fever Resolved Numbness Resolved Sinusitis Resolved 1CTA 07/15/200936334Crxlacs added by Discern Expert. Medications Medication Instructions [...]
--- OUTSIDE RECORDS SUMMARY | 2018-12-22 09:38 | XMS REPORT | CCD ---
:1950 Author Organization [facility] Team Providers Name Role Phone Shahana Grove Referring Provider Allergies, Adverse Reactions, Alerts Substance Reaction Status NKDA Active Problem List Condition Effective Dates Status Clostridium difficile1, 2 06/03/2009 - 07/15/2009 Resolved Fracture Resolved Hay fever Resolved Numbness Resolved Sinusitis Resolved 1CTA 07/15/200915778Bsqkeyo added by Discern Expert. Medications Medication Instructions [...]
--- OUTSIDE RECORDS SUMMARY | 2018-12-22 09:38 | XMS REPORT | CCD ---
:1950 Author Organization [facility] Team Providers Name Role Phone Shahana Grove Referring Provider Allergies, Adverse Reactions, Alerts Substance Reaction Status NKDA Active Problem List Condition Effective Dates Status Clostridium difficile1, 2 06/03/2009 - 07/15/2009 Resolved Fracture Resolved Hay fever Resolved Numbness Resolved Sinusitis Resolved 1CTA 07/15/200970593Lytcafd added by Discern Expert. Medications Medication Instructions [...]
--- OUTSIDE RECORDS SUMMARY | 2018-12-22 09:39 | XMS REPORT | CCD ---
:1950 Author Organization [facility] Team Providers Name Role Phone Shahana Grove Referring Provider [phone] Allergies, Adverse Reactions, Alerts Substance Reaction Status NKDA Active Problem List Condition Effective Dates Status Clostridium difficile1, 2 06/03/2009 - 07/15/2009 Resolved Fracture Resolved Hay fever Resolved Numbness Resolved SHUKRI - Obstructive sleep apnea Resolved Sinusitis Resolved 1CTA 07/15/200960092Ozuxtsj added by Discern Expert. Medications Medication Instructions [...]
--- OUTSIDE RECORDS SUMMARY | 2018-12-22 09:39 | XMS REPORT | CCD ---
:1950 Author Organization [facility] Team Providers Name Role Phone Shaahna Grove Referring Provider [phone] Allergies, Adverse Reactions, Alerts Substance Reaction Status NKDA Active Problem List Condition Effective Dates Status Clostridium difficile1, 2 06/03/2009 - 07/15/2009 Resolved Fracture Resolved Hay fever Resolved Numbness Resolved SHUKRI - Obstructive sleep apnea Resolved Sinusitis Resolved 1CTA 07/15/200953518Qzxupdq added by Discern Expert. Medications Medication Instructions [...] 9:00:00, Stop date: 02/08/09 9:00:00(Same as: Fluzone) [place] 5/325 oral tablet 1 tab, PO, Daily, [...]
--- OUTSIDE RECORDS SUMMARY | 2018-12-22 09:39 | XMS REPORT | CCD ---
:1950 [address] [facility] Team Providers Name Role Phone Celeste Lovett Referring Provider Allergies, Adverse Reactions, Alerts Substance Reaction Status NKDA Active Problem List Condition Effective Dates Status Clostridium difficile1, 2 06/03/2009 - 07/15/2009 Resolved Fracture Resolved Hay fever Resolved Numbness Resolved SHUKRI - Obstructive sleep apnea Resolved Sinusitis Resolved 1CTA 07/15/200978861Hnwflax added by Discern Expert. Medications Medication Instructions [...]
--- OUTSIDE RECORDS SUMMARY | 2018-12-22 09:39 | XMS REPORT | CCD ---
:1950 Author Organization [facility] Team Providers Name Role Phone Shahana Grove Referring Provider Allergies, Adverse Reactions, Alerts Substance Reaction Status NKDA Active Problem List Condition Effective Dates Status Clostridium difficile1, 2 06/03/2009 - 07/15/2009 Resolved Fracture Resolved Hay fever Resolved Numbness Resolved Sinusitis Resolved 1CTA 07/15/200940216Ntbtmil added by Discern Expert. Medications Medication Instructions [...]
--- OUTSIDE RECORDS SUMMARY | 2018-12-22 09:39 | XMS REPORT | CCD ---
:1950 Author Organization [facility] Team Providers Name Role Phone Shahana Grove Referring Provider Allergies, Adverse Reactions, Alerts Substance Reaction Status NKDA Active Problem List Condition Effective Dates Status Clostridium difficile1, 2 06/03/2009 - 07/15/2009 Resolved Fracture Resolved Hay fever Resolved Numbness Resolved Sinusitis Resolved 1CTA 07/15/[id number] added by Discern Expert. Medications Medication Instructions [...]
--- OUTSIDE RECORDS SUMMARY | 2018-12-22 09:40 | XMS REPORT ---
[...] End Status Dosage System Date Date Meloxicam [facility] 90913088502 7.5 MG Oral Active TAKE 1 TABLET BY MOUTH EVERY DAY Aripiprazole [facility] 64346977066 5 MG Oral Active TAKE 1 TABLET BY MOUTH EVERY DAY Duloxetine HCl [facility] 81481675442 40 MG Oral Active TAKE 1 CAPSULE BY MOUTH EVERY DAY Fluoxetine HCl [facility] 84446983943 20 MG Oral Active TAKE 1 CAPSULE BY MOUTH EVERY DAY Simvastatin [facility] 22022300010 40 MG Oral Active TAKE 1 TABLET BY MOUTH EVERY DAY IN THE EVENING Tramadol HCl [facility] 71633508805 50 MG Oral Active (Schedule IV Drug) TAKE 1 TABLET BY MOUTH EVERY 8 HOURS NEEDED FOR MODERATE PAIN. Risedronate [facility] 57594571811 150 MG Oral Active TAKE 1 Sodium TABLET BY MOUTH WITH A FULL GLASS OF WATER ON EMPTY STOMACH DONT EAT OR DRINK FOR 30 MINS Mobic [facility] 63769291008 7.5 MG Active TAKE 1 TABLET BY MOUTH EVERY DAY Gabapentin [facility] 19089443422 600 MG Oral Active TAKE 1 TABLET BY MOUTH THREE TIMES A DAY Results No Known Results Summary Purpose eClinicalWorks Submission
--- OUTSIDE RECORDS SUMMARY | 2018-12-22 09:41 | XMS REPORT ---
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 Assessment Acute pain of right shoulder M25.511 Active Medications Medication Code Code Instructions Start End Status Dosage System Date Date Meloxicam [facility] 10310445903 7.5 MG Active TAKE 1 TABLET BY MOUTH EVERY DAY Risedronate [facility] 72219867285 150 MG Oral Active TAKE 1 Sodium TABLET BY MOUTH WITH A FULL GLASS OF WATER ON EMPTY STOMACH DONT EAT OR DRINK FOR 30 MINS Aripiprazole [facility] 68782779748 5 MG Oral Active TAKE 1 TABLET BY MOUTH EVERY DAY Duloxetine HCl [facility] 32659104526 40 MG Oral Active TAKE 1 CAPSULE BY MOUTH EVERY DAY Gabapentin [facility] 92059518917 600 MG Oral Active TAKE 1 TABLET BY MOUTH THREE TIMES A DAY Simvastatin [facility] 36053074533 40 MG Oral Active TAKE 1 TABLET BY MOUTH EVERY DAY IN THE EVENING Olmesartan [facility] [address]-97 Active not defined Medoxomil Mobic [facility] 86188793464 7.5 MG Active TAKE 1 TABLET BY MOUTH EVERY DAY Fluoxetine HCl [facility] 31409275429 20 MG Oral Active TAKE 1 CAPSULE BY MOUTH EVERY DAY Tramadol HCl [facility] 55015549605 50 MG Oral Active (Schedule IV Drug) TAKE 1 TABLET BY MOUTH EVERY 8 HOURS NEEDED FOR MODERATE PAIN. Results No Known Results Summary Purpose eClinicalWorks Submission
--- NOTE | 2018-12-22 10:23 | RAD REPORT ---
EXAM DESCRIPTION: CT - Head Brain Wo Cont - 12/22/2018 10:04 am CLINICAL HISTORY: Fall, head injury, history of CVA COMPARISON: CT sinus examination April 2016, CT head examination January 2009 TECHNIQUE: Axial 5 mm thick images of the head were obtained without IV contrast. All CT scans are performed using dose optimization technique as appropriate and may include automated exposure control or mA/KV adjustment according to patient size. FINDINGS: A 10 millimeter long by 3 millimeter thick hyperdense focus is present along the anterior falx between the frontal lobes. This was not present on the 2016 CT sinus study. Given the fall histo ry, a small interhemispheric subdural hematoma cannot be excluded. Along the gyri of each anterior fr ontal lobe there are some hyperdensities present probably artifact rather than cortical contusion. No other findings for acute intracranial hemorrhage. There is a large area of encephalomalacia involving the frontal, parietal and temporal lobes. There i s sparing of the occipital lobe and some of the parietal lobe from this large remote CVA. Right later al ventricle is very enlarged due to substantial volume loss. There may be direct communication to th e CSF space. Shunt tube is in place entering from the left frontal bone. 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 Cochlear implant or similar device is present along the left lateral skull. This creates substantial artifact limiting the assessment of brain parenchyma along t he inner table of the left parietal and posterior frontal lobes. There is an approximately 4 millimeter [id number] shift at the level of the third ventricle. There is no left-side abnormality to cause this shift which is believed be chronic and related to the exte nsive right-sided encephalomalacia. No acute posterior fossa finding. Left frontal white matter encep halomalacia is present. No acute cortical based infarction suspected. Mastoid air cells are clear. There are postsurgical changes in the left mastoid air cells from implan t placement. No acute bony findings. IMPRESSION: A 10 x 3 mm hyperdense focus along the anterior falx is suspicious for a very small inte rhemispheric subdural acute hematoma. Extensive encephalomalacia involving the majority of the right cerebral hemisphere. HIGH LIGHTER shunt is in place with the tip in the midline frontal horns of the lateral ventricles. Entry site is left frontal bone. Postsurgical change from right-sided craniectomy and substantial spray artifact from a left-sided cricket hlear implant.
--- NOTE | 2018-12-22 10:41 | ER ---
Nurse's Notes [facility] Name: Joel Rios Age: 68 yrs Sex: Female : 1950 Arrival Date: 12/22/2018 Time: 09:30 Bed 13 Private MD: Diagnosis: Traumatic subdural hematoma Presentation: 12/22 09:30 Presenting complaint: EMS states: Pt hx of impaired mobility r/t CVA w/ L sided ph deficits, rolled out of bed this morning, witnessed by home health nurse, denies LOC, small laceration sustained to top of head, bleeding had stopped when EMS arrived, spouse and home health nurse report that pt is at baseline. Care prior to arrival: None. Mechanism of Injury: Fall out of bed. Trauma event details: Injury occurred in the [facility], Injury occurred: at home. Injury occurred: December 22, 2018. 09:30 Acuity: STEFANY 4 ph 09:30 Method Of Arrival: EMS: [facility] ph 10:41 Acuity: STEFANY 2 iw 11:55 Transition of care: patient was not received from another setting of care. Onset of ph symptoms. Risk Assessment: Do you want to hurt yourself or someone else? Patient reports no desire to harm self or others. Initial Sepsis Screen: Does the patient meet any 2 criteria? No. Patient's initial sepsis screen is negative. Does the patient have a suspected source of infection? No. Patient's initial sepsis screen is negative. Trauma Activation: Not Applicable Physician: ED Physician; Name: ; Notified At: ; Arrived At: Physician: General Surgeon; Name: ; Notified At: ; Arrived At: Physician: Radiology; Name: ; Notified At: ; Arrived At: Physician: Respiratory; Name: ; Notified At: ; Arrived At: Physician: Lab; Name: ; Notified At: ; Arrived At: Historical: - Allergies: 09:35 No Known Allergies; ph - PMHx: 09:35 bacterial meningitis; CVA; L sided deficits; Depression; Hypertension; Osteoporosis; ph - Immunization history: Last tetanus immunization: unknown. - Social history:: Smoking status: Patient/guardian denies using tobacco. - Family history:: not pertinent. - Ebola Screening: : No symptoms or risks identified at this time. - Hospitalizations: : No recent hospitalization is reported. Screenin:36 Abuse screen: Denies threats or abuse. Denies injuries from another. Nutritional ph screening: No deficits noted. Tuberculosis screening: No symptoms or risk factors identified. Fall Risk Fall in past 12 months (25 points). Secondary diagnosis (15 points) impaired mobility, CVA, No IV (0 pts). Ambulatory Aid- None/Bed Rest/Nurse Assist (0 pts). Gait- Impaired (20 pts.). Mental Status- Oriented to own ability (0 pts). Total [place] Fall Scale indicates High Risk Score (45 or more points). Fall prevention measures have been instituted. Side Rails Up X 2 Placed Close to Nursing Station Frequent Obs/Assessments Occuring Family Present and informed to notify staff if the need to leave the bedside As available patient and family educated on Fall Prevention Program and Strategies. Primary Survey: 09:36 NO uncontrolled hemorrhage observed. A: The patient is alert. Airway: patent, No ph supplemental oxygen in use on arrival. Oral cavity: clear. Breathing/Chest: Respiratory pattern: regular, Respiratory effort: spontaneous, unlabored. Circulation: Skin color: pink, Skin temperature: warm, dry. Disability Alert. Exposure/Environment: There is no evidence of uncontrolled external bleeding. Obvious injury(ies) are noted at this time: laceration to top of head. 12:00 Reassessment Airway Airway Patent Breathing/Chest Respiratory pattern Regular ph Respiratory effort Spontaneous Unlabored Circulation Color [place] Temperature Warm Dry Disability Alert. Assessment: 09:45 General: Appears in no apparent distress. comfortable, well groomed, Behavior is calm, ph cooperative, appropriate for age. Pain: Complains of pain in face. Neuro: Level of Consciousness is awake, alert, obeys commands, Oriented to person, place, time, situation, Cpr Ambulance Driver are weak on left hx of CVA. Speech is slurred. Cardiovascular: Capillary refill < 3 seconds in bilateral fingers Patient's skin is warm and dry. Respiratory: Airway is patent Respiratory effort is even, unlabored, Respiratory pattern is regular, symmetrical. : Jiménez in place to gravity drainage. Derm: Skin is healthy with good turgor, Skin is pink, warm \T\ dry. Musculoskeletal:. Injury Description: Abrasion sustained to top of head. 11:11 Reassessment: Patient appears in no apparent distress at this time. Patient and/or ph family updated on plan of care and expected duration. Pain level reassessed. Patient is alert, oriented x 3, equal unlabored respirations, skin warm/dry/pink. Report called to DAVID Vila at [facility]. 12:15 Reassessment: Patient appears in no apparent distress at this time. Patient and/or ph family updated on plan of care and expected duration. Pain level reassessed. Patient is alert, oriented x 3, equal unlabored respirations, skin warm/dry/pink. Report given to [facility], pt transferred to [facility]. Vital Signs: 09:35 BP 123 / 68; Pulse 76; Resp 16; Temp 97.9; Pulse Ox 100% on R/A; Weight 63.5 kg (R); iw 10:57 BP 149 / 69; Pulse 78; Resp 18; Temp 97.8; Pulse Ox 100% on R/A; ph 11:56 BP 117 / 53; Pulse 74; Resp 18; Temp 97.8; Pulse Ox 100% on R/A; ph [place] Score: 09:35 Eye Response: spontaneous(4). Verbal Response: oriented(5). Motor Response: obeys ph commands(6). Total: 15. 10:57 Eye Response: spontaneous(4). Verbal Response: oriented(5). Motor Response: obeys ph commands(6). Total: 15. 11:56 Eye Response: spontaneous(4). Verbal Response: oriented(5). Motor Response: obeys ph commands(6). Total: 15. Trauma Score (Adult): 09:35 Eye Response: spontaneous(1); Verbal Response: oriented(1); Motor Response: obeys ph commands(2); Systolic BP: > 89 mm Hg(4); Respiratory Rate: 10 to 29 per min(4); [place] Score: 15; Trauma Score: 12 10:57 Eye Response: spontaneous(1); Verbal Response: oriented(1); Motor Response: obeys ph commands(2); Systolic BP: > 89 mm Hg(4); Respiratory Rate: 10 to 29 per min(4); [place] Score: 15; Trauma Score: 12 11:56 Eye Response: spontaneous(1); Verbal Response: oriented(1); Motor Response: obeys ph commands(2); Systolic BP: > 89 mm Hg(4); Respiratory Rate: 10 to 29 per min(4); [place] Score: 15; Trauma Score: 12 ED Course: 09:30 Patient arrived in ED. ph 09:30 Ashwin Varghese MD is Attending Physician. rn 09:33 Triage completed. ph 10:00 Patient maintains SpO2 saturation greater than 95% on room air. Thermoregulation: warm ph blanket given to patient. 10:04 CT Head Brain wo Cont In Process Unspecified. EDMS 10:33 Sanaz Jordan RN is Primary Nurse. ph 11:12 Inserted saline lock: 20 gauge in right antecubital area, using aseptic technique. ph Blood collected. 11:12 Arm band placed on Patient placed in an exam room. ph 11:55 Patient has correct armband on for positive identification. Placed in gown. Bed in low ph position. Call light in reach. Side rails up X2. Pulse ox on. NIBP on. Door closed. Noise minimized. Warm blanket given. Pillow given. Head of bed elevated. 11:56 No provider procedures requiring assistance completed. Patient transferred, IV remains ph in place. Administered Medications: 11:28 Drug: Keppra 1000 mg Route: IV; Rate: calculated rate; Site: right antecubital; ph 11:45 Follow up: Response: No adverse reaction; IV Status: Completed infusion ph Intake: 09:35 PO: 0ml; Total: 0ml. ph Output: 09:35 Urine: 0ml; Total: 0ml. ph 11:56 Urine: 500ml (Jiménez); Total: 500ml. ph Outcome: 10:40 ER care complete, transfer ordered by . rn 12:19 Patient left the ED. ph 12:19 Transferred by ground EMS [place]. to [facility], Transfer form ph completed. X-rays sent w/ patient. 12:19 Condition: stable 12:19 Instructed on the need for transfer. ph 12:19 Patient's length of stay was not longer than 2 hours. ph Signatures: Dispatcher [employer] EDSandra Montenegro RN RN iw Nieto, Roman, MD MD rn Hall, Patricia, RN RN ph Corrections: (The following items were deleted from the chart) 10:40 09:35 BP 123 / 68; Pulse 76bpm; Resp 16bpm; Pulse Ox 100% RA; Temp 97.9F; ph iw
--- NOTE | 2018-12-22 10:41 | EDPHYS ---
Physician Documentation [facility] Name: Joel Rios Age: 68 yrs Sex: Female : 1950 Arrival Date: 12/22/2018 Time: 09:30 Bed 13 Private MD: ED Physician Ashwin Varghese HPI: 12/22 10:06 This 68 yrs old Female presents to ER via EMS with complaints of Fall Injury. rn 10:06 Details of fall: The patient fell from a supine position, out of bed. Onset: The rn symptoms/episode began/occurred just prior to arrival. Associated injuries: The patient sustained injury to the head. Severity of symptoms: At their worst the symptoms were mild, in the emergency department the symptoms are unchanged. The patient has experienced similar episodes in the past. Caregiver reports rail on bed gave way, patient fell to hardwood floor, no LOC, has residual left sided weakness from stroke in past. No other injuries. Brought in to eval head trauma. EMS noted small laceration to scalp, no more active bleeding.. Historical: - Allergies: 09:35 No Known Allergies; ph - PMHx: 09:35 bacterial meningitis; CVA; L sided deficits; Depression; Hypertension; Osteoporosis; ph - Immunization history: Last tetanus immunization: unknown. - Social history:: Smoking status: Patient/guardian denies using tobacco. - Family history:: not pertinent. - Ebola Screening: : No symptoms or risks identified at this time. - Hospitalizations: : No recent hospitalization is reported. ROS: 10:06 Constitutional: Negative for fever, chills, and weight loss, Eyes: Negative for injury, rn pain, redness, and discharge, Neck: Negative for injury, pain, and swelling, Cardiovascular: Negative for chest pain, palpitations, and edema, Respiratory: Negative for shortness of breath, cough, wheezing, and pleuritic chest pain, Abdomen/GI: Negative for abdominal pain, nausea, vomiting, diarrhea, and constipation, Back: Negative for injury and pain, MS/Extremity: Negative for injury and deformity, Neuro: Negative for headache, new weakness, and seizure. Exam: 10:06 Constitutional: This is a well developed, well nourished patient who is awake, alert, rn and in no acute distress. Head/Face: Normocephalic, dry blood along midline scalp from forehead/hair line to occiput, no obvious laceration found Eyes: No periorbital injury noted ENT: no oral trauma. Dry blood at left outer upper lip. Neck: Trachea midline, no thyromegaly or masses palpated, and no cervical lymphadenopathy. Supple, full range of motion without nuchal rigidity, or vertebral point tenderness. No Meningismus. Cardiovascular: Regular rate and rhythm. No pulse deficits. Respiratory: Lungs have equal breath sounds bilaterally, clear to auscultation. No increased work of breathing, no retractions or nasal flaring. Abdomen/GI: soft, non-tender MS/ Extremity: Pulses equal, no cyanosis. Neuro: Awake and alert, GCS 15, oriented to person, place, time, and situation. + baseline left sided hemiparesis. Vital Signs: 09:35 BP 123 / 68; Pulse 76; Resp 16; Temp 97.9; Pulse Ox 100% on R/A; Weight 63.5 kg (R); iw 10:57 BP 149 / 69; Pulse 78; Resp 18; Temp 97.8; Pulse Ox 100% on R/A; ph 11:56 BP 117 / 53; Pulse 74; Resp 18; Temp 97.8; Pulse Ox 100% on R/A; ph [place] Coma Score: 09:35 Eye Response: spontaneous(4). Verbal Response: oriented(5). Motor Response: obeys ph commands(6). Total: 15. 10:57 Eye Response: spontaneous(4). Verbal Response: oriented(5). Motor Response: obeys ph commands(6). Total: 15. 11:56 Eye Response: spontaneous(4). Verbal Response: oriented(5). Motor Response: obeys ph commands(6). Total: 15. Trauma Score (Adult): 09:35 Eye Response: spontaneous(1); Verbal Response: oriented(1); Motor Response: obeys ph commands(2); Systolic BP: > 89 mm Hg(4); Respiratory Rate: 10 to 29 per min(4); [place] Score: 15; Trauma Score: 12 10:57 Eye Response: spontaneous(1); Verbal Response: oriented(1); Motor Response: obeys ph commands(2); Systolic BP: > 89 mm Hg(4); Respiratory Rate: 10 to 29 per min(4); [place] Score: 15; Trauma Score: 12 11:56 Eye Response: spontaneous(1); Verbal Response: oriented(1); Motor Response: obeys ph commands(2); Systolic BP: > 89 mm Hg(4); Respiratory Rate: 10 to 29 per min(4); [place] Score: 15; Trauma Score: 12 MDM: 09:30 Patient medically screened. rn 10:38 Differential diagnosis: closed head injury, contusion. Data reviewed: vital signs, rn nurses notes, radiologic studies, CT scan, and as a result, I will admit patient. Counseling: I had a detailed discussion with the patient and/or guardian regarding: the historical points, exam findings, and any diagnostic results supporting the discharge/admit diagnosis, lab results, radiology results, the need to transfer to another facility, for higher level of care, [facility] does not immediately have the required specialist. Admission orders: after a detailed discussion of the patient's condition and case, the admit orders are written by me. ED course: Pt with traumatic interhemispheric subdural hematoma, neurologically at baseline, not on blood thinners, will transfer to [facility] for observation and neurosurgical evaluation which we do not have here.. 12/22 09:40 Order name: CBC with Diff rn 12/22 09:40 Order name: [place] rn 12/22 09:40 Order name: CT Head Brain wo Cont; Complete Time: 10:37 rn 12/22 09:40 Order name: TRANSFERRIN SAT/IRON BINDING rn 12/22 10:46 Order name: Protime (+inr) rn 12/22 10:46 Order name: Ptt, Activated rn Administered Medications: 11:28 Drug: Keppra 1000 mg Route: IV; Rate: calculated rate; Site: right antecubital; ph 11:45 Follow up: Response: No adverse reaction; IV Status: Completed infusion ph Disposition: 12/22/18 10:40 Transfer ordered to [facility]. Diagnosis is Traumatic subdural hematoma. - Reason for transfer: Higher level of care. - Accepting physician is . - Condition is Stable. - Problem is new. - Symptoms have improved. Signatures: Dispatcher [employer] EDMS Ashwin Varghese MD MD rn Hall, Patricia, RN RN ph Corrections: (The following items were deleted from the chart) 12:19 10:40 12/22/2018 10:40 Transfer ordered to [facility]. ph Diagnosis is Traumatic subdural hematoma. Reason for transfer: Higher level of care. Accepting physician is . Condition is Stable. Problem is new. Symptoms have improved. rn
[2018-12-22 10:51] LABS: Absolute Lymphocytes (CBC) 1.6 K/uL (0.7-4.9); Basophils % 0.5 % (0-1.3); Hematocrit 27.2 % (36.0-45.0); Lymphocytes % 24.9 % (15.3-44.8); MPV 7.7 fL (7.6-11.3); RBC Red Blood Cell Count 3.01 M/uL (3.86-4.86)
[2018-12-22 10:58] LABS: Ferritin 26.2 ng/mL (8-388)
[2018-12-22 11:11] LABS: Protime INR 0.94
[2018-12-22] MEDS ORDERED: levETIRAcetam 1,000 MG in NA CHLORIDE 0.9% 100 ML IV ONE (11:15)
[2018-12-22 18:50] VITALS: TEMP 97.8; O2SAT 100
[2018-12-22 18:52] VITALS: BP 117/53
== END 2018-12-22 12:19 | disposition short-term general hospital (02) ==
LOC: ER 09:23
DX: S06.5X0A Traumatic subdural hemorrhage without loss of consciousness, initial encounter (principal); W06.XXXA Fall from bed, initial encounter; I10 Essential (primary) hypertension; F32.9 Major depressive disorder, single episode, unspecified; M81.0 Age-related osteoporosis without current pathological fracture; Z86.73 Personal history of transient ischemic attack (TIA), and cerebral infarction without residual deficits
CPT/HCPCS: 96365; 85025; 36415; 85610; 85730; 82728; 83540; 84466; 70450; 99285; J1953